=== PATIENT | female | born 1955 | race Caucasian/White ===

== ENCOUNTER 2023-05-30 14:12 | Outpatient (REF) | payer MEDICARE, OTHER, SELFPAY ==
--- NOTE | ~2023-05-30 | XR_ITS ---
EXAMINATION: XR KNEE, RIGHT CLINICAL INFORMATION: Pain in right knee COMPARISON: None available. TECHNIQUE: Four views of the right knee. FINDINGS: There are surgical changes relating to the right knee arthroplasty. Components are intact and in alignment. No fracture, periprosthetic or otherwise is seen. There is a small joint effusion. Joint spaces are maintained. No abnormal soft tissue calcification. XR/XR knee RT 3V IMPRESSION: Changes relating to a right knee arthroplasty with a small joint effusion.
== END 2023-05-30 14:13 | disposition home or self-care (01) ==
LOC: HO.HOSX 14:12
PROVIDERS: Visit Provider Orthopaedic Surgery
DX: M25.561 Pain in right knee (principal); M17.12 Unilateral primary osteoarthritis, left knee
CPT/HCPCS: 73562; 99212

== ENCOUNTER 2023-05-30 14:12 | Outpatient (AMB) | payer MEDICARE, OTHER, SELFPAY ==
--- NOTE | 2023-05-30 14:26 | MHC.OFFVIS ---
Intake Intake Visit Reasons: OV-F/U RT knee surgery Intake Note: Pt presents to the office today for an office visit F/U. Pt states she is a previous pt of Dr. Pérez from his previous office. Pt states she is doing great after her right knee surgery. Patient states she has mild intermittent discomfort her right knee. Today she is most concerned with progressively worsening left knee pain and mechanical symptoms. Patient states that she has fallen on 2 occasions because her left knee has given out. Allergies adhesive tape Allergy (Intermediate, Verified 05/30/23 14:27) Rash epinephrine Allergy (Mild, Verified 05/30/23 14:27) shaking Medication List - Last Reconciled 05/30/23 by Quintin Pérez MD ustekinumab (Stelara) 45 mg subcut Q12W PFSH Surgical History (Updated 05/30/23 @ 14:34 by Helga Abdullahi MA) History of total right knee replacement (TKR) Family History (Updated 05/30/23 @ 14:30 by Helga Abdullahi MA) Mother Lung cancer Liver cancer Sister Hypertension Sister Multiple sclerosis Social History (Updated 05/30/23 @ 14:29 by Helga Abdullahi MA) Household Members: Spouse Housing: House Alcohol intake: current Alcohol intake frequency: a few times a month Patient Tobacco Use Status: Former Tobacco user Current occupational status: employed and retired Current occupation: [employer] Physical Exam Const Other: Well-nourished well-developed very friendly female awake alert and oriented x3 in no acute distress Extrem Other: Bilateral lower extremity examination shows good capillary refill, no skin lesions noted, normal sensation light touch Right knee examination shows that the surgical incision is well healed, no erythema, full active extension and flexion to 120 degrees, her patella tracks well Left knee examination shows a mild effusion, palpable crepitus with range of motion, pain with range of motion, range of motion from -3 degrees to 115 degrees Results Reviewed Results Reviewed: X-rays of the patient's right knee show a total knee arthroplasty in good position with no signs of loosening, no acute bony abnormalities X-rays of the patient's left knee taken previously show severe joint space narrowing, subchondral sclerosis, no acute bony abnormalities Assessment & Plan Assessment & Plan (1) Right knee pain: Code(s): M25.561 - Pain in right knee Plan: Ms. [place] I spent 22 minutes in reviewing the patient's records and imaging studies, seeing the patient and documenting in the medical record. (2) Arthritis of left knee: Code(s): M17.12 - Unilateral primary osteoarthritis, left knee Plan: Ms. Prieto continues to do well after undergoing right total knee replacement surgery. She will continue with her home exercise program. She does know to take antibiotics before any dental work. The patient does have left knee pain and mechanical symptoms due to degenerative joint disease. I had a lengthy discussion with the patient regarding the treatment options. She wishes to hold off on left total knee replacement surgery for now. I did have her fitted with a Genumed knee brace to help give her support. I do feel that the knee brace is a medical necessity to help prevent further falls. She will contact me prior to her follow-up appointment in 3 months should her symptoms worsen in any way. I spent 22 minutes in reviewing the patient's records and imaging studies, seeing the patient and documenting in the medical record. Orders: Orders XR knee RT 3V Today M25.561 - Pain in right knee Coding Level of Care Code Est Pt Level 2 (83364) Diagnoses Right knee pain M25.561 Arthritis of left knee M17.12
== END 2023-05-30 14:56 | disposition home or self-care (01) ==
PROVIDERS: Visit Provider Orthopaedic Surgery
DX: M25.561 Pain in right knee (principal); M17.12 Unilateral primary osteoarthritis, left knee
CPT/HCPCS: 99212

== ENCOUNTER 2023-09-13 07:22 | Outpatient (REF) | payer MEDICARE, OTHER, SELFPAY ==
--- NOTE | ~2023-09-13 | XR_ITS ---
EXAMINATION: XR KNEE, LEFT CLINICAL INFORMATION: Primary osteoarthritis. COMPARISON: None available. TECHNIQUE: AP, lateral and sunrise views of the left knee are submitted. FINDINGS: Bony alignment and mineralization are normal. No fracture or dislocation is seen. There is a large joint effusion. There is moderately severe asymmetric narrowing of the medial joint space compartment. The lateral joint space compartment is well-maintained. There is moderately severe narrowing of the patellofemoral compartment, most pronounced laterally. There is tricompartment peripheral osteophyte formation. There is chondrocalcinosis. No foreign body is seen. There are atherosclerotic calcifications. XR/XR knee LT 3V IMPRESSION: 1. There is tricompartment osteoarthritic changes of the left knee, most pronounced of the medial and patellofemoral compartments, where degenerative changes are moderately severe. 2. There is a large joint effusion. 3 there is chondrocalcinosis, which can be associated with CPPD.
== END 2023-09-13 07:23 | disposition home or self-care (01) ==
LOC: HO.HOSX 07:22
PROVIDERS: Visit Provider Orthopaedic Surgery
DX: M17.12 Unilateral primary osteoarthritis, left knee (principal)
CPT/HCPCS: 73562; 99212

== ENCOUNTER 2023-09-13 11:14 | Outpatient (AMB) | payer MEDICARE, OTHER, SELFPAY ==
--- NOTE | 2023-09-13 11:24 | MHC.OFFVIS ---
Intake Intake Visit Reasons: New Prob- Lt Knee pain Intake Note: Pratibha is a 67 year old female who presents today for a new problem visit with complaints of left knee pain. Patient did undergo right total knee replacement surgery in the past. She denies any pain in her right knee. She describes her left knee pain as sharp and severe in nature. She did undergo left knee arthroscopic surgery in the past which gave her only temporary relief. She has tried Tylenol and anti-inflammatory medicines which gave her minimal relief. The patient states that her left knee will give out several times per day. She has been wearing a knee brace which gives only mild relief. The patient has had injections in the past. The most recent injection gave her no relief. The patient has difficulty walking even short distances because of her pain. At this point her left knee pain is interfering with her activities of daily living and her ability to sleep well through the night. Allergies adhesive tape Allergy (Intermediate, Verified 05/30/23 14:27) Rash epinephrine Allergy (Mild, Verified 05/30/23 14:27) shaking Medication List - Last Reconciled 09/13/23 by Phylicia Santos RN celecoxib 200 mg PO DAILY omeprazole 40 mg PO BID ustekinumab (Stelara) 45 mg subcut Q12W PFSH Surgical History History of total right knee replacement (TKR) Family History Mother Lung cancer Liver cancer Sister Hypertension Sister Multiple sclerosis Social History Household Members: Spouse Housing: House Alcohol intake: current Alcohol intake frequency: a few times a month Patient Tobacco Use Status: Former Tobacco user Current occupational status: employed and retired Current occupation: [employer] Physical Exam Const Other: Well-nourished well-developed very friendly female awake alert and oriented x3 in no acute distress Extrem Other: Bilateral lower extremity examination shows good capillary refill, no skin lesions noted, normal sensation light touch Left knee examination shows a minimal effusion, palpable crepitus with range of motion, pain with range of motion, range of motion from -3 degrees to 115 degrees, no instability Results Reviewed Results Reviewed: X-rays of the patient's left knee show end-stage degenerative joint disease with grade 4 [id number] arthritis in the medial compartment, subchondral sclerosis, osteophyte formation, no acute bony abnormality Assessment & Plan Assessment & Plan (1) Arthritis of left knee: Code(s): M17.12 - Unilateral primary osteoarthritis, left knee Plan Ms. Prieto presents with progressively worsening left knee pain due to end-stage degenerative joint disease. I had a lengthy discussion with the patient regarding the treatment options. At this point she has failed continued non operative treatments. The risks and benefits of left total knee replacement surgery were discussed at length with the patient. The patient wishes to proceed with surgery. Patient will be scheduled for next available date. I will see her back 1 week prior to her surgery to answer any final questions that she might have. Feel free to call me at any time should questions regarding her orthopedic management arise. I spent 22 minutes in reviewing the patient's records and imaging studies, seeing the patient and documenting in the medical record. Orders: Orders XR knee LT 3V Today M17.12 - Unilateral primary osteoarthritis, left knee Coding Level of Care Code Est Pt Level 2 (77388) Diagnoses Arthritis of left knee M17.12
== END 2023-09-13 12:18 | disposition home or self-care (01) ==
PROVIDERS: Visit Provider Orthopaedic Surgery
DX: M17.12 Unilateral primary osteoarthritis, left knee (principal); Z96.651 Presence of right artificial knee joint
CPT/HCPCS: 99213

== ENCOUNTER → 2023-12-19 12:02 | Outpatient (BNVA) | payer MEDICARE, OTHER, SELFPAY | PROVIDERS: PCP Family Medicine; Visit Provider Orthopaedic Surgery ==

== ENCOUNTER → 2023-12-19 12:02 | Outpatient (BNVA) | payer MEDICARE, OTHER, SELFPAY | PROVIDERS: PCP Family Medicine; Visit Provider Orthopaedic Surgery ==

== ENCOUNTER 2024-02-06 10:11 | Outpatient (REF) | payer MEDICARE, OTHER, SELFPAY | END 2024-02-06 10:12 | disposition home or self-care (01) | LOC: HO.HOSX 10:11 | PROVIDERS: Visit Provider Orthopaedic Surgery | DX: M17.12 Unilateral primary osteoarthritis, left knee (principal) | CPT/HCPCS: 99212 ==

== ENCOUNTER 2024-02-06 10:31 | Outpatient (AMB) | payer MEDICARE, OTHER, SELFPAY ==
--- NOTE | 2024-02-06 10:37 | MHC.OFFVIS ---
Intake Visit Reasons: B/L hip pain Intake Note: Pratibha is a 68-year-old female who presents with complaints of progressively worsening left knee pain. She did undergo right total knee replacement surgery several years ago. She denies any pain in her right knee. She has had injections in the past which gave her minimal relief. She has also done physical therapy exercises which aggravated her pain. She is tentatively scheduled to undergo left total knee replacement surgery next month. She is concerned about possible Lyme disease after a recent tick bite and possible need for steroids due to psoriasis flare up. Allergies adhesive tape Allergy (Intermediate, Verified 05/30/23 14:27) Rash Sulfa (Sulfonamide Antibiotics) Allergy (Intermediate, Verified 01/11/24 10:49) Vomiting epinephrine Allergy (Mild, Verified 05/30/23 14:27) shaking varenicline [From Chantix] Adverse Reaction (Intermediate, Verified 01/11/24 10:49) emotional discord Medication List - Last Reconciled 02/06/24 by Quintin Pérez MD amoxicillin 2,000 mg (4 x 500 mg) PO ONCE celecoxib 200 mg PO DAILY lactobacillus comb no.10 (Probiotic) 20,000 mmu cells PO DAILY omeprazole 40 mg PO BID ustekinumab (Stelara) 45 mg subcut Q12W walker Folding front wheeled walker [facility] Medical History (Updated 02/05/24 @ 15:14 by Quintin Pérez MD) Psoriasis Osteoarthritis Ocular migraine Hypertriglyceridemia Hypothyroid HTN (hypertension) Dysphagia GERD (gastroesophageal reflux disease) Surgical History (Updated 01/11/24 @ 10:49 by Frances Angel RN) History of tonsillectomy and adenoidectomy History of History of total right knee replacement (TKR) Family History Mother Lung cancer Liver cancer Sister Hypertension Sister Multiple sclerosis Social History Household Members: Spouse Housing: House Alcohol intake: current Alcohol intake frequency: a few times a month Patient Tobacco Use Status: Former Tobacco user Current occupational status: employed and retired Current occupation: [employer] Physical Exam Const Other: Well-nourished well-developed very friendly female awake alert and oriented x3 in no acute distress Extrem Other: Left knee examination shows a minimal effusion, palpable crepitus with range of motion, pain with range of motion, multiple psoriatic skin lesions on her lower extremity Results Reviewed Results Reviewed: X-rays of the patient's left knee show joint space narrowing, subchondral sclerosis, osteophyte formation, no acute bony abnormalities Assessment & Plan Assessment & Plan (1) Arthritis of left knee: Code(s): M17.12 - Unilateral primary osteoarthritis, left knee Category: Medical Plan Ms. Prieto presents with left knee pain due to degenerative joint disease. I had a lengthy discussion with the patient regarding her treatment options. Due to her recent tick bite and psoriasis flare up we will hold off on left total knee replacement surgery for now. I will see her back in 2-3 months time for repeat clinical examination. She is considering undergoing left total knee replacement surgery later this year or early next year. Feel free to call me at any time should questions regarding her orthopedic management arise. I spent 19 minutes in reviewing the patient's records and imaging studies, seeing the patient and documenting in the medical record. Orders: Orders XR hip LT min 2V Today M16.12 - Unilateral primary osteoarthritis, left hip XR hip RT 1V Today M16.11 - Unilateral primary osteoarthritis, right hip Coding Level of Care Code Est Pt Level 2 (31570) Diagnoses Arthritis of left knee M17.12
== END 2024-02-06 10:57 | disposition home or self-care (01) ==
PROVIDERS: PCP Family Medicine; Visit Provider Orthopaedic Surgery
DX: M17.12 Unilateral primary osteoarthritis, left knee (principal)
CPT/HCPCS: 99213

== ENCOUNTER 2024-05-08 11:19 | Outpatient (AMB) | payer MEDICARE, OTHER, SELFPAY ==
--- NOTE | 2024-05-08 11:27 | A.OFFVIS_ITS ---
Intake Visit Reasons: OV-Left knee follow up Intake Note: Pratibha is a 68 year old female who presents to the office today for a 3 month Left knee follow up. Pt states she is working on her exercises and states her previous cortisone injection was helpful. Pt states she does have a follow up with her arthritis doctor to get another injection in May. If she does not get lasting relief from the injection she is considering undergoing left total knee replacement surgery early next year. She has done physical therapy exercises which aggravated her pain. She has also tried Tylenol and Celebrex which gave her minimal relief. The patient has difficulty walking even short distances because of her pain. At this point her left knee pain is interfering with her activities of daily living and her ability to sleep well through the night. Allergies adhesive tape Allergy (Intermediate, Verified 05/08/24 11:27) Rash Sulfa (Sulfonamide Antibiotics) Allergy (Intermediate, Verified 05/08/24 11:27) Vomiting epinephrine Allergy (Mild, Verified 05/08/24 11:27) shaking varenicline [From Chantix] Adverse Reaction (Intermediate, Verified 05/08/24 11:27) emotional discord Medication List - Last Reconciled 05/08/24 by Quintin Pérez MD amoxicillin 2,000 mg (4 x 500 mg) PO ONCE celecoxib 200 mg PO DAILY lactobacillus comb no.10 (Probiotic) 20,000 mmu cells PO DAILY omeprazole 40 mg PO BID ustekinumab (Stelara) 45 mg subcut Q12W walker Folding front wheeled walker [facility] Medical History (Updated 02/05/24 @ 15:14 by Quintin Pérez MD) Psoriasis Osteoarthritis Ocular migraine Hypertriglyceridemia Hypothyroid HTN (hypertension) Dysphagia GERD (gastroesophageal reflux disease) Surgical History (Updated 01/11/24 @ 10:49 by Frances Angel RN) History of tonsillectomy and adenoidectomy History of History of total right knee replacement (TKR) Family History Mother Lung cancer Liver cancer Sister Hypertension Sister Multiple sclerosis Social History Household Members: Spouse Housing: House Alcohol intake: current Alcohol intake frequency: a few times a month Patient Tobacco Use Status: Former Tobacco user Current occupational status: employed and retired Current occupation: [employer] Physical Exam Const Other: Well-nourished well-developed very friendly female awake alert and oriented x3 in no acute distress Extrem Other: Bilateral lower extremity examination shows good capillary refill, no skin lesions noted, normal sensation light touch Left knee examination shows a minimal effusion, palpable crepitus with range of motion, pain with range of motion, range of motion from -3 degrees to 115 degrees, no instability Results Reviewed Results Reviewed: X-rays of the patient's left knee show end-stage degenerative joint disease with grade 4 [id number] arthritis, subchondral sclerosis, osteophyte formation, no acute bony abnormalities Assessment & Plan Assessment & Plan (1) Arthritis of left knee: Code(s): M17.12 - Unilateral primary osteoarthritis, left knee Category: Medical Plan Ms. Prieto presents with progressively worsening left knee pain due to end-stage degenerative joint disease. She will follow up next week with her arthritis doctor for a another injection. If she does not get lasting relief from the injection she is considering undergoing left total knee replacement surgery early next year. She will contact my office to pick a surgery date if she chooses to do so. Otherwise she will follow up with me on an as-needed basis. Feel free to call me at any time should questions regarding her orthopedic management arise. I spent 20 minutes in reviewing the patient's records and imaging studies, seeing the patient and documenting in the medical record. Coding Level of Care Code Est Pt Level 3 (77262) Diagnoses Arthritis of left knee M17.12
== END 2024-05-08 11:49 | disposition home or self-care (01) ==
PROVIDERS: PCP Family Medicine; Visit Provider Orthopaedic Surgery
DX: M17.12 Unilateral primary osteoarthritis, left knee (principal)
CPT/HCPCS: 99213

== ENCOUNTER → 2024-05-08 11:19 | Outpatient (BNVA) | payer MEDICARE, OTHER, SELFPAY | PROVIDERS: PCP Family Medicine; Visit Provider Orthopaedic Surgery | DX: M17.12 Unilateral primary osteoarthritis, left knee (principal) | CPT/HCPCS: 99212 ==

== ENCOUNTER → 2024-09-03 08:53 | Outpatient (BNVA) | payer MEDICARE, OTHER, SELFPAY | PROVIDERS: PCP Family Medicine | DX: Z01.818 Encounter for other preprocedural examination (principal) ==

== ENCOUNTER 2024-10-03 07:59 | Outpatient (AMB) | payer MEDICARE, SELFPAY ==
[2024-10-03 08:01] VITALS: BMI 27.0
--- NOTE | 2024-10-03 08:01 | A.OFFVIS_ITS ---
Vital Signs 10/03/24 08:01 Height 5 ft 4.17 in Weight 158 lb BMI 27.0 Intake Visit Reasons: Left knee pain Intake Note: Pratibha is a 67 year old female who presents with complaints of progressively worsening left knee pain. The patient describes her pain as sharp and severe in nature, 10/10. Her pain has gotten worse over the last few years in spite of continued non operative treatments. The patient did undergo right total knee replacement surgery in the past. She denies any pain in her right knee. She did undergo left knee arthroscopic surgery in the past which gave her only temporary relief. She has tried Tylenol and anti-inflammatory medicines which gave her minimal relief. The patient states that her left knee will give out several times per day. She has been wearing a knee brace which gives only mild relief. The patient has had injections in the past. The most recent injection gave her no relief. The patient has difficulty walking even short distances because of her pain. At this point her left knee pain is interfering with her activities of daily living and her ability to sleep well through the night. Allergies adhesive tape Allergy (Intermediate, Verified 10/03/24 08:03) Rash (from band aids/medicine patches) Sulfa (Sulfonamide Antibiotics) Allergy (Intermediate, Verified 10/03/24 08:03) Vomiting epinephrine Allergy (Mild, Verified 10/03/24 08:03) Shakiness varenicline [From Chantix] Adverse Reaction (Intermediate, Verified 10/03/24 08:03) emotional discord Medication List - Last Reviewed 10/03/24 by FERNANDO Arguelles acidophilus-pectin, citrus 100 million cell-10 mg 1 cap PO QAM celecoxib 200 mg PO BEDTIME PRN multivitamin 1 tab PO QAM omeprazole 40 mg PO BID ustekinumab (Stelara) 45 mg subcut Q12W walker Folding front wheeled walker zoledronic utgs-rhsmvuyi-heqww 5 mg/100 mL (Reclast) 1 ea IV [id number] PFSH Medical History Anxiety Pneumonia Fracture, ribs White coat syndrome without diagnosis of hypertension Vertebral compression fracture Osteoporosis Psoriasis Osteoarthritis Ocular migraine Hypertriglyceridemia Hypothyroid Dysphagia GERD (gastroesophageal reflux disease) Surgical History Hx of bilateral cataract extraction H/O colonoscopy Hx of arthroscopy of left knee History of esophagogastroduodenoscopy (EGD) History of tonsillectomy and adenoidectomy History of History of total right knee replacement (TKR) Family History Mother Lung cancer Liver cancer Sister Hypertension Sister Multiple sclerosis Social History Household Members: Spouse Housing: House Are you a primary family day care provider to a significant other at home: No Do you presently have visiting nurse or other home services: No Alcohol intake: current Alcohol intake frequency: holidays/special occasions only Patient Tobacco Use Status: Former Tobacco user Tobacco use type: Cigarette Years Smoked: 30 Current occupational status: employed and retired Current occupation: [employer] Physical Exam Vital Signs: BMI result Body Mass Index 27.0 Const Other: Well-nourished well-developed very friendly female awake alert and oriented x3 in no acute distress Extrem Other: Bilateral lower extremity examination shows good capillary refill, no skin lesions noted, normal sensation light touch Left knee examination shows a minimal effusion, palpable crepitus with range of motion, pain with range of motion, range of motion from -3 degrees to 120 degrees, no instability Results Reviewed Results Reviewed: X-rays of the patient's left knee show end-stage degenerative joint disease with grade 4 udhi-lf-ijdr arthritis in the medial compartment, subchondral sclerosis, no acute bony abnormalities Assessment & Plan Assessment & Plan (1) Left knee pain: Code(s): M25.562 - Pain in left knee (2) Arthritis of left knee: Code(s): M17.12 - Unilateral primary osteoarthritis, left knee Category: Medical Plan Ms. Prieto presents with progressively worsening left knee pain due to end-stage degenerative joint disease. I had a lengthy discussion with the patient re garding the treatment options. At this point she has failed continued non operative treatments. The risks and benefits of left total knee replacement surgery were discussed at length with the patient. The patient wishes to proceed with surgery. technical services assistant will be consulted following her surgery for home physical therapy and nursing. The patient will follow-up as instructed. Feel free to call me at any time should questions regarding her orthopedic management arise. I spent 22 minutes in reviewing the patient's records and imaging studies, seeing the patient and documenting in the medical record. Orders: Orders XR knee LT 3V Today M17.12 - Unilateral primary osteoarthritis, left knee Type and Screen Today M17.12 - Unilateral primary osteoarthritis, left knee, Z01.818 - Encounter for other preprocedural examination Coding Level of Care Code Est Pt Level 3 (82788) Complex EM visit Add On G2211 Diagnoses Left knee pain M25.562 Arthritis of left knee M17.12
--- OUTSIDE RECORDS SUMMARY | 2024-10-03 08:01 | XMS_ITS | Continuity of Care Document ---
Author Organization [facility] Address [address] [place] [address]- Care Team Providers Care Leasing Representative Name Role Phone Jose Carlos MAYES, Meredith Lindsey Primary Care Physic dariusz [place] [facility] [place] 09/11/24 [facility] [address] [place] [address]- Encounter Diagnosis Osteoarthritis of left knee(Discharge Diagnosis) - 09/04/24 Attending Physician: Jose Carlos MAYES, Meredith Lindsey Encounter Type: Office Visit Allergies, Adverse Reactions, [...] vaccine, inactivated 1 06/13/11 Gi dede SARS-CoV-2(COVID-19)mRNA-LNP vac([id number]) 07/09/23 Recorded [id number] 12y+ bivalent booster vax 06/17/22 Recorded SARS-CoV-2 mRNA (ztzxvuj-zoaw-jkevu) vax 12/31/21 Recorded SARS-CoV-2 (COVID-19) mRNA BNT-162b2 [...] 05/13/24 9:05:00 AM EDT, EC Capsule, [id number], Partial fill upon patient request if the [...] right knee Confirmed Active Osteoporosis Confirmed Active Psoriasis Confirmed Active Multiple falls Confirmed Active Sore throat Confirmed Active History of tobacco abuse Confirmed Active Urolithiasis Confirmed Active Vitamin D deficiency Confirmed Active Diagnosis Diagnosis Type Effective Dates Health Status Clinical Service Informant Osteoarthritis of left knee Discharge Diagnosis 09/04/24 Vital Signs Most recent to oldest [Reference Range]: 1 Height 163 cm (09/04/24 12:47 PM) Oxygen Saturation [94-100 %] 99 % (09/04/24 12:47 PM) Pulse Rate [55-90 bpm] 74 bpm (09/04/24 12:47 PM) Blood Pressure [90-138/55-84 mm Hg] 104/ 71mm Hg (09/04/24 12:47 PM) Mode of Delivery (Oxygen) Room air (09/04/24 12:47 PM) Blood pressure sites Arm, right (09/04/24 12:47 PM) Weight Obtained Via Standing scale (09/04/24 12:47 PM) Social History Social History Type Response Tobacco Other: 1.5-2 ppd for 33 yrs. Sex Sex Representation Female (finding) Note * Linda Faye: PERFORM Event Display: Patient Education/Instruction Authored Date: Ambulatory Adult Visit Summary [address] [address] Name: ALEE VIDALES : 1955?? Visit: 09/04/2024 12:40?? Ambulatory Visit Instructions ?? Your Care Team Primary Care Provider Meredith Branch MD? This Visit Provider Meredith Hager MD Your Diagnosis Osteoarthritis of left knee Vitals Signs Pulse Rate: 74 bpm Height: 163 cm Systolic Blood Pressure: 104 mm Hg ?? Diastolic Blood Pressure: 71 mm Hg ?? Oxygen Saturation: 99 % ?? What to do next Scheduled Follow-Up Appointments Monday 8:45 AM EST ?? With: Yesica MAYES, Alisson Where: [facility] [address] [place] [address]- Status: Pending Future Orders CBC w/ Differential - Routine, Once, 11/03/24 13:06:00 EST, Future Order, [facility], Blood?? Comprehensive Metabolic Panel - Routine, Once, 11/03/24 13:06:00 EST, Future Order, [facility], Blood?? Medications The list below reflects the information in our records and provided by you today along with any changes made during this visit. Please continue your medications until treatment is completed or stopped by your provider. If this is different from the information you have or there are other questions,please contact the prescribing provider. What How Much When Instructions Unchanged Betamethasone-Clotrimazole Topical (betamethasone-clotrimazole 0.05%-1% topical cream) 1 nicky Topically Twice a day Unchanged bifidobacterium-lactobacillus (Probiotic Formula) Oral Daily Unchanged Celecoxib (celecoxib 200 mg oral capsule) 1 capsule Oral Daily Unchanged Cholecalciferol (Vitamin D3) Oral Daily Unchanged Clobetasol Topical (clobetasol 0.05% topical solution) APPLY 2X DAILY TO SCALP FOR 2 WEEKS THEN STOP FOR 2 WEEKS ??REPEAT CYCLE NEEDED. ?? Unchanged Omeprazole (omeprazole 40 mg oral enteric coated capsule) 1 capsule Oral Twice a day Unchanged Ustekinumab (Stelara PFS 45 mg/ 0.5 mL subcutaneous solution) INJECT 1 SYRINGE UNDER THE SKIN EVERY 12 WEEKS ?? Unchanged Zoledronic Acid (Reclast 5 mg/ 100 mL intravenous solution) 5 Milligram Intravenous Infusion Once Test Performed Below is a partial list of the tests performed during your Visit. You may have had other tests and procedures not included in this list. Please discuss all test results with your provider. CBC w/ Differential?-- Results Pending -- Comprehensive Metabolic Panel?-- Results Pending -- Medications and Immunizations Administered Medications Given During Visit No medications given during this visit.?? Allergies (NKA means No Known Allergies) Chantix??(EMOTIONAL DISCORD) Adhesive Bandage epinephrine sulfamethoxazole??(Vomiting) Common Emergency Awareness Tips IS IT A STROKE? Act FAST and Check for these signs: FACE Does the face look uneven? ARM Does one arm drift down? SPEECH Does their speech sound strange? TIME Call at any sign of stroke ?? Heart Attack Signs Chest discomfort: Most heart attacks involve discomfort in the center of the chest and lasts more than a few minutes, or goes away and comes back. It can feel like uncomfortable pressure, squeezing, fullness or pain. Discomfort in upper body: Symptoms can include pain or discomfort in one or both arms, back, neck, jaw or stomach. Shortness of breath: With or without discomfort. Other signs: Breaking out in a cold sweat, nausea, or lightheaded. Remember, MINUTES DO MATTER. If you experience any of these heart attack warning signs, call to get immediate medical attention! ?? Smoking can increase your chances of developing chronic health problems and can cause harmful effects to other family members in your house. If you smoke, you are strongly encouraged to quit. Please call [facility] at [phone] or [phone] ([phone]) or log in to [email or web address] for referrals to smoking cessation programs. ?? The National Suicide Prevention Hotline is available 24/7 if you or someone you know needs to find a reason to keep living. By calling 6-594-214-bwii (5244) you'll be connected to a skilled, trained counselor at a crisis center in your area. [facility] Portal You can view and manage your care through the patient portal or by using a health care nicky of your choosing. [facility] [employer] is a website that allows you to securely view your medical information including your hospital discharge summary, office visit summaries, medications and follow-up visits. You can also request appointments, renew medications, and request access to your medical information using a health care nicky of your choosing, or just ask a question. You can enroll at [email or web address] or register during your next office visit. [facility], in keeping with [facility] guidance, no longer requires face masks for staff, patientsor visitors in most situations. Similiar to time spent indoors at other locations, there is the chance that you were exposed to repiratory viruses during your time with us (such as flu or COVID-19). If you develop symptoms concerning for a viral respiratory infection, please seek testing (and treatment if indicated) from your medical provider or home test kit. ?? Disclaimer: The information provided is of a general nature and is intended to be used in conjunction with the recommendations and advice of your health care practitioner. Every effort has been made to ensure that the information provided is accurate and complete at the time it is provided to you however, as your needs change, or, as new information becomes available, different or additional instructions may be required. ?? If you have questions, please consult with your primary care provider or pharmacist, as appropriate. This information is not intended to serve as substitution for assessment and evaluation by a qualified health care provider. If you do not have a primary care provider, you may find a [facility] provider by calling [facility] at [phone]. Patient Care team information Care Team Personnel Name: Jose Carlos MAYES, Meredith Lindsey Position: S Physician - Primary Care Member Role: PCP Address: [address] [place] [address] Telecom: Care Team Related Persons Name: PAUL VIDALES Name: EZIO VIDALES Insurance Providers Guarantor name: ALEE VIDALES [facility] [employer] Plan Information #: 1 Payer: MEDICARE PART B OUTPT Member Number: [id number] Policy Number: NA Group Number: NA Health Plan Information #: 2 Payer: [facility] Member Number: [id number] Policy Number: NA Group Number: [id number]
--- OUTSIDE RECORDS SUMMARY | 2024-10-03 08:01 | XMS_ITS | Continuity of Care Document ---
Author Organization [facility] Address [address] [place] [address]- Care Team Providers Care Can Crimper Name Role Phone Jose Carlos MAYES, Meredith Lindsey Primary Care Physic dariusz Encounter [facility] [place] Date(s): 08/14/24 - 09/13/24 [facility] [address] [place] [address]- Encounter Type: Triage Allergies, Adverse Reactions, Alerts [...] vaccine, inactivated 1 06/13/11 Gi dede SARS-CoV-2(COVID-19)mRNA-LNP vac([id number]) 07/09/23 Recorded [id number] 12y+ bivalent booster vax 06/17/22 Recorded SARS-CoV-2 mRNA (figsflh-kqxj-cqems) vax 12/31/21 Recorded SARS-CoV-2 (COVID-19) mRNA BNT-162b2 [...] 05/13/24 9:05:00 AM EDT, EC Capsule, [id number], Partial fill upon patient request if the [...] Name: Jose Carlos MAYES, Meredith Lindsey Position: [facility] Physician - Primary Care Member Role: PCP Address: [address] [place] [address] Telecom: Care Team Related Persons Name: PAUL VIDALES Name: EZIO VIDALES Insurance Providers Guarantor name: ALEE VIDALES Health Plan Information #: 1 Payer: MEDICARE PART B OUTPT Member Number: NA Policy Number: NA Group Number: NA Health Plan Information #: 2 Payer: [facility] Member Number: NA Policy Number: NA Group Number: NA
--- OUTSIDE RECORDS SUMMARY | 2024-10-03 08:01 | XMS_ITS | Continuity of Care Document ---
Author Organization [facility] Address [address] [place] [address]- Care Team Providers Care Customer Account Technician Name Role Phone Jose Carlos MAYES, Meredith Lindsey Primary Care Physic dariusz Encounter [facility] [place] Date(s): 08/12/24 - 09/11/24 [facility] [address] [place], [place] [address] Attending Physician: Alonso Melton Admitting Physician: Alonso Melton Referring Physician: Alonso Melton Referring Physician: Socorro Bailon Encounter Type: Triage Allergies, Adverse Reactions, Alerts [...] vaccine, inactivated 1 06/13/11 Gi dede SARS-CoV-2(COVID-19)mRNA-LNP vac([id number]) 07/09/23 Recorded [id number] 12y+ bivalent booster vax 06/17/22 Recorded SARS-CoV-2 mRNA (rzxbyds-ikhp-ygjuf) vax 12/31/21 Recorded SARS-CoV-2 (COVID-19) mRNA BNT-162b2 [...] 05/13/24 9:05:00 AM EDT, EC Capsule, [id number], Partial fill upon patient request if the [...] Name: Jose Carlos MAYES, Meredith Lindsey Position: [facility] Physician - Primary Care Member Role: PCP Address: [address] [place] [address] Telecom: Care Team Related Persons Name: PAUL VIDALES Name: EZIO VIDALES Insurance Providers Guarantor name: [facility] Information #: 1 Payer: MEDICARE PART B OUTPT Member Number: NA Policy Number: NA Group Number: NA Health Plan Information #: 2 Payer: [facility] Member Number: NA Policy Number: NA Group Number: NA
--- OUTSIDE RECORDS SUMMARY | 2024-10-03 08:01 | XMS_ITS | Data Portability ---
Author Organization [facility], [facility] Address [address] [place] [address] Care Team Providers [employer] Platform Supervisor Name Role Phone DARLING ROCHA Primary Care Provider [phone] EZIO LONDON Child Day Care Teacher [phone] CHIRAG REECE [employer] Supervisor MARCIO LOZADA Legal Specialist Assessment Encounter Date Assessment Date Assessment LastModified by Organization Details LastModified Time 05/04/2020 05/04/2020 Patient agreed t o this visit via phone or secure telehealth platform due to the COVID -19 pandemic. Patient understands this is a scheduled visit and the usual procedures with regard to billing and confidentiality apply. Patient was notified that the provider location is home Patient location: home During the visit the patient? s medical history and medical record were reviewed. The patient was notified to call our office for worsening or urgent symptoms. [email or web address] Not available 05/04/2020 14:49:40 Plan of Treatment Reminders Order Date Submit Date Provider Last Modified By Organization Details Last Modified Time Details Appointments None recorded. Lab CBC 2019 020 [facility], [address] [place] [address], [address], 0 14:53:37 BMP, serum or plasma 2019 020 [facility], [address] [place] [address], [address], 0 12:02:28 vitamin D, 25-hydrox y, total, serum 2019 020 [facility], [address] [place] [address], [address], 0 12:20:02 MAURICIO (antinucl ear antibodie s) screen, ifa, serum 2019 020 [facility], [address] [place], [address], 0 15:32:59 Referral None recorded. Procedures None recorded. Surgeries None recorded. Imaging None recorded. Medication Orders clotrimaz ole-betam ethasone 1 %-0.05 % topical cream 2019 020 INTERFACE [id number], [address] [place], [address], 0 14:22:06 Patient TargetsNo targets recorded. Patient Instructions Encounter Date Encounter Id Patient Instructions Last Modified By Organization Details Last Modified Time 02/18/2020 [id number] After a discussi on of treatment options, which included consideration of best practices and patient preferences, the following treatment plan and objectives were adopted: as above. [email or web address] Not available 02/18/2020 14:08:12 05/04/2020 [id number] After a discussi on of treatment and medication options, which included consideration of the best practices in medicine, a medical plan was provided. The patient's opinions and concerns were included in this treatment plan and goal. Things you can do to lower your risk of Covid 19 and help slow the spread of the virus -Get plenty of rest -Eat a healthy diet, with lots of fruits and vegetables -Get 7-8 hours of sleep per night -Make sure you are doing some type of exercise inside your house or outside (not in groups) -Maintain 6 feet distance from friends / family -Wash your hands frequently for 20 seconds and / or use Purell or other hand director data management -Do not touch your face, eyes, nose, mouth -Cover your mouth and nose with a tissue when sneezing and coughing or sneeze and cough into your sleeve. Throw the tissue in the trash. Wash your hands afterward. Never cough or sneeze into your hands. -Clean frequently used surfaces (such as doorknobs and counter tops) with a virus-killing disinfectant. -Call with any concerns. [email or web address] Not available 05/04/2020 14:54:46 05/08/2020 [id number] Enc continue social distancing, frequent handwashing, cover face with mask when in crowded areas (ie. supermarket). F/u if any s/s of Covid-19 including fever, cough, SOB. [email or web address] Not available 05/08/2020 13:34:28 Reason for Referral None Reported. Results Created Date Observation Date Name Description Value Unit Range Abnormal Flag Note LastModifiedBy Organization Detail LastModifiedTime 03/24/20 20 03/24/2020 CBC WBC 9.47 K/??L 3.98-1 0.04 Not Available [address], [address], 03/24/2020 14:53:37 03/24/2003/24/2020 CBC RBC 4.62 M/??L 3.93-5 .22 Not Available [address], [address], 03/24/2020 14:53:37 03/24/2003/24/2020 CBC HGB 13.9 g/dL 11.2-1 5.7 Not Available [address], [address], 03/24/2020 14:53:37 03/24/20 20 03/24/2020 CBC HCT 42.8 % 34.1-4 4.9 Not Available [address], [address], 03/24/2020 14:53:37 03/24/2003/24/2020 CBC MCV 92.6 fL 79.4-9 4.8 Not Available [address], [address], 03/24/2020 14:53:37 03/24/2003/24/2020 CBC MCH 30.1 pg 25.6-3 2.2 Not Available [address], [address], 03/24/2020 14:53:37 03/24/20 20 03/24/2020 CBC MCHC 32.5 g/dL 32.2-3 5.5 Not Available [address], [address], 03/24/2020 14:53:37 03/24/20 20 03/24/2020 CBC plt 331 K/??L 182-36 9 Not Available [address], [address], 03/24/2020 14:53:37 03/24/20 20 03/24/2020 CBC MPV 10.4 fL 9.4-12 .3 Not Available [address], [address], 03/24/2020 14:53:37 03/24/20 20 03/24/2020 CBC neut% 61.9 % 34.0-7 1.1 Not Available [address], [address], 03/24/2020 14:53:37 03/24/20 20 03/24/2020 CBC neut# 5.86 1.56-6 .13 Not Available [address], [address], 03/24/2020 14:53:37 03/24/20 20 03/24/2020 CBC lymph % 25.2 % 19.3-5 1.7 Not Available [address], [address], 03/24/2020 14:53:37 03/24/20 20 03/24/2020 CBC lymph # 2.39 K/??L 1.18-3 .74 Not Available [address], [address], 03/24/2020 14:53:37 03/24/20 20 03/24/2020 CBC mono% 7.6 % 4.7-12 .5 Not Available [address], [address], 03/24/2020 14:53:37 03/24/20 20 03/24/2020 CBC mono# 0.72 0.24-0 .56 high Not Available [address], [address], 03/24/2020 14:53:37 03/24/20 20 03/24/2020 CBC eo% 3.7 % 0.7-5. 8 Not Available [address], [address], 03/24/2020 14:53:37 03/24/20 20 03/24/2020 CBC eo# 0.35 0.04-0 .36 Not Available [address], [address], 03/24/2020 14:53:37 03/24/20 20 03/24/2020 CBC baso% 1.0 % 0.1-1. 2 Not Available [address], [address], 03/24/2020 14:53:37 03/24/20 20 03/24/2020 CBC baso# 0.09 0.00-0 .08 high Not Available [address], [address], 03/24/2020 14:53:37 03/24/20 20 03/24/2020 CBC RDW-CV 13.2 % 11.7-1 4.4 Not Available [address], [address], 03/24/2020 14:53:37 03/24/20 20 03/24/2020 CBC Ig% 0.600 % 0.000- 1.500 Ig % >0.5 Indic ates possi ble Left Shift Not Available [address], [address], 03/24/2020 14:53:37 03/24/20 20 03/24/2020 CBC Ig# 0.060 0.000- 0.093 Not Available [address], [address], 03/24/2020 14:53:37 03/24/20 20 03/24/2020 CBC NRBC% 0.0 % 0.0-0. 2 Not Available [address], [address], 03/24/2020 14:53:37 03/24/20 20 03/24/2020 CBC NRBC# 0.000 0.000- 0.012 Not Available [address], [address], 03/24/2020 14:53:37 03/24/20 20 03/25/2020 BMP, serum or plasm a glucose 145 mg/dL 70-100 high LIPG= Speci men Marke dly Lipem ic. Chem Resul ts may be effec deanna. Not Available [address], [address], 03/25/2020 12:02:28 03/24/20 20 03/25/2020 BMP, serum or plasm a BUN 10 mg/dL 7-18 Not Available [address], [address], 03/25/2020 12:02:28 03/24/2003/25/2020 BMP, serum or plasm a creatinine 0.8 mg/dL 0.8-1. 3 Not Available [address], [address], 03/25/2020 12:02:28 03/24/20 20 03/25/2020 BMP, serum or plasm a B/C 12.5 ratio Not Available [address], [address], 03/25/2020 12:02:28 03/24/20 20 03/25/2020 BMP, serum or plasm a GFR -non 80.6 mL/mi n Recom tanja d GFR by the Natio nal Kidne y Found ation >60 mL/mi n/1.7 3m2 - Na l <60 mL/mi n/1.7 3m2 - Chron ic Kidne y Disea se <15 mL/mi n/1.7 3m2 - Kidne y Failu re Not Available [address], [address], 03/25/2020 12:02:28 03/24/20 20 03/25/2020 BMP, serum or plasm a GFR - if 92.7 mL/mi n For Afric an Ameri can patie nts: Resul ts Multi plied by 1.21 Not Available [address], [address], 03/25/2020 12:02:28 03/24/20 20 03/25/2020 BMP, serum or plasm a sodium 144 mmol/ L 136-14 5 Not Available [address], [address], 03/25/2020 12:02:28 03/24/2003/25/2020 BMP, serum or plasm a potassium 3.7 mmol/ L 3.5-5. 1 Not Available [address], [address], 03/25/2020 12:02:28 03/24/2003/25/2020 BMP, serum or plasm a chloride 107 mmol/ L 96-107 Not Available [address], [address], 03/25/2020 12:02:28 03/24/2003/25/2020 BMP, serum or plasm a anion gap 11.8 5.0-15 .0 Not Available [address], [address], 03/25/2020 12:02:28 03/24/2003/25/2020 BMP, serum or plasm a CO2 25 mmol/ L 21-32 Not Available [address], [address], 03/25/2020 12:02:28 03/24/20 20 03/25/2020 BMP, serum or plasm a calcium 8.9 mg/dL 8.5-10 .3 Not Available [address], [address], 03/25/2020 12:02:28 03/24/2003/25/2020 TSH, serum or plasm a TSH 0.82 uIU/m L 0.50-6 .00 The Ameri can Colle ge of Endoc rinol ogy and Ameri can Thyro id Assoc iatio n recom mend goal TSH value s betwe en 0.4-4 .0 mIU/m L. Not Available [address], [address], 03/25/2020 12:20:01 03/24/20 20 03/25/2020 vitam in D, 25-hy droxy , total , serum vitamin D 25-hydroxy EIA 37.9 NG/mL 20.0-9 9.9 Thera py is based on measu remen t of total 25-OH D, with level s less than 20 ng/mL indic ative of Vitam in D defic iency . Level s betwe en 20ng/ mL and 30 ng/mL sugge st insuf ficie ncy. Optim al Level s are great er than 30 ng/mL . Not Available [address], [address], 03/25/2020 12:20:02 03/24/20 20 03/25/2020 AST/S GOT (aspa rtate amino trans feras e), serum or plasm a AST 25 U/L 0-37 LIPG= Speci dora Perez dly Lipem ic. Chem Resul ts may be effec deanna. Not Available [address], [address], 03/25/2020 12:46:25 03/24/20 20 03/25/2020 ALT (sara ine amino trans feras e), serum or plasm a ALT 49 U/L 6-63 Not Available [address], [address], 03/25/2020 12:46:26 03/24/20 20 03/25/2020 MAURICIO (anti nucle ar antib odies ) scree n, ifa, serum MAURICIO screen, ifa NEGATI VE negati ve normal MAURICIO IFA is a first line scree n for detec ting the prese nce of up to appro ximat aida 150 autoa ntibo dies in vario us autoi mmune disea ses. A negat johanna MAURICIO IFA resul t sugge sts an MAURICIO-a ssoci ated autoi mmune disea se is not prese nt at this time, but is not defin itive . If there is high clini prerna suspi cion for Sjogr en's syndr ome, testi ng for anti- SS-A/ Ro antib lauro shoul d be consi dered . Anti- Elsi-1 antib lauro shoul d be consi dered for clini minh suspe cted infla mmato ry myopa lynnette . AC-0: Negat johanna Inter natio nal Conse nsus on MAURICIO Patte rns (http s://d oi.or g/10. 1515/ [facility]2017- 0052) For addit ional infor li yanes e refer to http: //[facility] adalberto santamaria.Que stDia gnost ics.c om/fa q/FAQ 177 (This link is being provi ded for infor rachna kaplan/ educloretta marie purpo ses only. ) Not Available [facility] [address] [place] [address], [place], [address], 03/25/2020 15:32:58 03/24/2003/25/2020 HbA1c (hemo globi n A1c), blood hemoglobin A1C 5.9 % 4.8-6. 0 Goal: <7% in Patie nts with Diabe barbie Not Available [address], [address], 03/25/2020 15:42:28 03/24/2003/25/2020 HbA1c (hemo globi n A1c), blood estimated average glucose 122.6 mg/dL Not Available [address], [address], 03/25/2020 15:42:28 Result Notes None recorded. Problems Name Problem SNOMED Code Status Onset Date Resolution Date Notes Provider Name and Address Organization Details Recorded Time Hypothyro idism 36230128 [place], [address], [facility] 6 10:34:37 Psoriasis 1097407 [place], [address], [facility] 6 17:39:38 Osteoarth ritis 167183984 [place], [address], [facility] 6 17:21:01 Vitamin D deficienc y 03614777 Active 2015 [place], [address], [facility] 6 12:18:54 Cobalamin deficienc y 367150412 Active 2015 [place], [address], [facility] 6 12:19:24 Ophthalmi c migraine 89700744 Active 2017 MD [place], [address], [facility] [place] 8 12:49:07 Obesity 522828800 Active 2017 [place], [address], [facility] [place] 8 10:43:25 Adenomato us polyp of colon 624280261 Active 2018 [place], [address], [facility] [place] 9 12:38:22 Cyst of kidney 377878828 Active 2019 repeat US 11/2020 to assure no changes [place], [address], [facility] [place] 0 08:56:05 Complicat ion of medical care 08860270 Completed 200708/14/2013 Darling Rocha MD [address] [place] [address] [place], [address], [facility] [place] 6 17:21:01 Problem Notes None recorded. Procedures Surgical History Date Name Laterality Status Provider Name and Address Organization Details Recorded Time 05/08/20 20 Cerumen Removal - Irrigation/Lava ge completed Agatha Boles NP [address] [place] [address], [address], [facility] 05/08/2020 13:33:51 10/10/19 20 Cerumen Removal - Irrigation/Lava ge completed Nori Meadows RN [facility] 10/10/2019 14:57:52 05/04/20 19 POC Urinalysis Testing completed Bette Pardo MA [facility] 05/04/2019 11:23:15 11/21/19 19 POC Urinalysis Testing completed Swati Patricia MA [facility] 11/21/2018 11:38:48 08/28/20 18 Cerumen Removal - Irrigation/Lava ge completed Rita Ramos [facility] 08/28/2018 11:46:20 03/16/20 18 Cerumen Removal - Irrigation/Lava ge completed Yadira Finley MD [address] [place] [address], [address], [facility] 03/16/2018 15:02:34 01/06/20 18 [address]: Therapeutic Exercise completed Deirdre Trujillo, PT [address] [place], [address], [facility] 01/05/2018 13:09:35 01/06/20 18 [id number]: Manual Therapy completed Deirdre Trujillo, PT [address] [place], [address], [facility] 01/05/2018 13:09:38 01/06/20 18 Treatment and Advice completed Deirdre Trujillo, PT [address] [place], [address], [facility] 01/05/2018 12:41:49 12/27/19 18 [id number]: Therapeutic Exercise completed Deirdre Trujillo, PT [address] [place], [address], [facility] 12/26/2017 13:30:27 12/27/19 18 Treatment and Advice completed Deirdre Trujillo, PT [address] [place], [address], [facility] 12/26/2017 13:27:24 12/20/19 18 [id number]: Therapeutic Exercise completed Deirdre Trujillo, PT [address] [place], [address], [facility] 12/19/2017 15:39:43 12/20/19 18 Treatment and Advice completed Deirdre Trujillo, PT [address] [place], [address], [facility] 12/19/2017 14:56:59 12/13/19 18 Physical Activity Counselling completed Deirdre Trujillo, PT [address] [place], [address], [facility] 12/12/2017 15:27:42 12/13/19 18 [id number]: PT Eval, Moderate Complexity completed Deirdre Trujillo, PT [address] [place], [address], [facility] 12/12/2017 15:27:38 12/13/19 18 Treatment and Advice completed Deirdre Trujillo, PT [address] [place], [address], [facility] 12/12/2017 14:31:02 09/23/20 16 Cerumen Removal - Irrigation/Lava ge completed Isabella Pulido LPN [facility] 09/23/2016 11:49:35 02/02/20 16 POC Urinalysis Testing completed Jory Vallecillo LPN [facility] 02/02/2016 16:08:03 Imaging Results None recorded. Procedure Notes None recorded. Medical Equipment None Reported. Allergies Allergen ID Allergen Name Allergen Category Reaction Reaction Severity Criticality Documentation Date Start Date Code Code System Note Provider Name and Address Organization Details Recorded Time 715358 meloxicam medicatio n Not available Not available Not available 04/09/2015 15606 RxNorm Too drows y. Milagro Chris, TOMAS [address] [facility], [facility] [place], [address] , [facility] 5 12:03:16 [id number] epinephri ne medicatio n Not available Not available Not available 07/22/2015 3992 RxNorm pt has had & has been o.k. but had & got jitte ry & rash the next day. Patricia Awad [facility] 6 11:50:09 160174 Chantix medicatio n Not available Not available Not available 07/22/2015 [address] Juan F Nevarez [facility] 5 12:17:50 [id number] doxycycli ne Not available nausea Not available Not available 09/19/2018 3640 RxNorm Christie Moser [facility] 8 15:44:39 Medications Name Sig Start Date Stop Date Status Note LastModified by Organization Details LastModified Time celecoxib 200 mg capsule TAKE ONE CAPSULE BY MOUTH EVERY DAY AT BEDTIME active doesn't take daily Not Available Not Available Not Available amoxicill in 500 mg capsule TK 1 C PO TID TAT 03/16 completed Not Available Not Available Not Available Flomax 0.4 mg capsule Take 1 capsule every day by oral route for 7 days. 02/12 completed Not Available Not Available Not Available azithromy sidney 250 mg tablet TAKE 2 TABLETS BY MOUTH TODAY, THEN TAKE 1 TABLET DAILY FOR 4 DAYS active Not Available Not Available No t Available ibuprofen 800 mg tablet TK 1 T PO TID FOR SWELLING 03/16 completed Not Available Not Available Not Available fluconazo le 150 mg tablet 05/08 completed Not Available Not Available Not Available hydrocodo ne 5 mg-acetam inophen 325 mg tablet TK 1 T PO Q 6 H PRF PAIN 05/04 completed Not Available Not Available Not Available Keflex 500 mg capsule Take 1 capsule every 6 hours by oral route for 7 days. 02/12 completed Not Available Not Available Not Available fluconazo le 200 mg tablet 03/16 completed Not Available Not Available Not Available triazolam 0.125 mg tablet TK 1 TO 2 TS PO 90 MINUTES BEFORE APPOINTM ENT 03/16 completed Not Available Not Available Not Available alclometa sone 0.05 % topical cream active Not Available Not Available Not Available triamcino lone acetonide 0.1 % topical cream APPLY TO AFFECTED AREA TWICE A DAY *DO NOT USE ON FACE* active Not Available Not Available No t Available ondansetr on 8 mg disintegr ating tablet Place 1 tablet every 8 hours by translin gual route for 2 days. 02/12 completed Not Available Not Available Not Available meloxicam 7.5 mg tablet TAKE 1 TABLET BY MOUTH EVERY DAY WITH FOOD active Not Available Not Available No t Available levothyro xine 100 mcg tablet TAKE 1 TABLET BY MOUTH EVERY DAY active Not Available Not Available No t Available [place] Thyroid 15 mg tablet TAKE 4 TABLETS BY MOUTH EVERY DAY 01/14 completed Not Available Not Available Not Available Zofran 8 mg tablet Take 1 tablet every 8 hours by oral route for 2 days. 02/12 completed Not Available Not Available Not Available methotrex ate sodium 2.5 mg tablet TAKE UP TO 6 TABLETS BY MOUTH ONCE WEEKLY DIRECTED 02/06 completed Has not been using lately 11/21/17 will restat Not Available Not Available Not Available baclofen 10 mg tablet TAKE 1/2 TO 1 TABLET BY MOUTH 3 TIMES A DAY FOR SPASM 09/23 completed Not Available Not Available Not Available benzonata te 100 mg capsule TAKE 1 CAPSULE BY MOUTH THREE TIMES A DAY NEEDED 02/17 completed Not Available Not Available Not Available clotrimaz ole-betam ethasone 1 %-0.05 % topical cream APPLY TOPICALL Y TO AFFECTED AREA TWICE A DAY FOR 2 WEEKS active Not Available Not Available No t Available metronida zole 0.75 % topical cream 03/16 completed Not Available Not Available Not Available folic acid 1 mg tablet TAKE 1 TABLET(S ) EVERY DAY BY ORAL ROUTE FOR 90 DAYS. active Not Available Not Available No t Available bisacodyl 5 mg tablet,de layed release TAKE 4 TABLETS BY MOUTH WITH 8OZ OF WATER ONCE THE DAY BEFORE PROCEDUR E FOR 1 DAY 02/17 completed Not Available Not Available Not Available clobetaso l 0.05 % topical ointment APPLY TO AFFECTED AREA TWICE A DAY active prn Not Available Not Available No t Available alclometa sone 0.05 % topical ointment 02/17 completed PRN 09/19/18 -rp Not Available Not Available Not Available nystatin 100,000 unit/gram topical powder APPLY TO THE AFFECTED AREA(S) BY TOPICAL ROUTE 2 TIMES PER DAY 10/24 completed Not Available Not Available Not Available ketoconaz ole 2 % topical cream active Not Available Not Available Not Available clobetaso l 0.05 % scalp solution active Not Available Not Available Not Available clotrimaz ole 1 % topical cream APPLY TO THE AFFECTED AND SURROUND ING AREAS OF SKIN BY TOPICAL ROUTE 2 TIMES PER DAY IN THE MORNING AND EVENING active PRN Not Available Not Available No t Available diazepam 5 mg tablet Take 1 tablet twice a day by oral route as needed for 3 days. 06/29 completed Not Available Not Available Not Available amoxicill in 875 mg-potass ium clavulana te 125 mg tablet 05/04 completed Not Available Not Available Not Available nabumeton e 500 mg tablet Take 1 tablet twice a day by oral route as needed. 05/19 completed Not Available Not Available Not Available Estrace 0.01% (0.1 mg/gram) vaginal cream INSERT 1 APPLICAT ORFUL VAGINALL Y DAILY AT BEDTIME 05/28 completed Not Available Not Available Not Available escitalop kaitlin 10 mg tablet TAKE 1/2 TABLET BY MOUTH FOR THE FIRST 4 DAYS THEN TAKE 1 TABLET BY MOUTH EVERY DAY 12/27 completed PRN Not Available Not Available Not Available nitrofura ntoin monohydra te/macroc rystals 100 mg capsule Take 1 capsule every 12 hours by oral route for 5 days. 10/10 completed Not Available Not Available Not Available chlorhexi dine gluconate 0.12 % mouthwash RINSE WITH 15 ML PO BID UTD. DO NOT SWALLOW. 03/16 completed Not Available Not Available Not Available fluocinol one acetonide oil 0.01 % ear drops INSTILL 5 DROPS INTO AFFECTED EAR(S) BY OTIC ROUTE 2 TIMES PER DAY as needed active Not Available Not Available No t Available GaviLyte- G 236 gram-22.7 4 gram-6.74 gram-5.86 gram oral solution 02/17 completed Not Available Not Available Not Available Stelara 45 mg/0.5 mL subcutane ous syringe 02/17 completed unable to afford 02/18/20 SRPevery 3 month/ will finsih after November Not Available Not Available Not Available Vitals Date Recorded Body height Body mass index (BMI) Body weight Provider Name and Address Organization Details Last Updated DateTime 02/18/2020 162.56 cm 32.6 kg/m2 09502.55 g Darling Rocha MD [address] [place] [address], [address], [facility] 02/18/2020 14:08:40 Date Recorded Body height Body mass index (BMI) Body weight Body temperature Heart rate Systolic blood pressure Diastolic blood pressure Provider Name and Address Organization Details Last Updated DateTime 0 162.56 cm 33.7 kg/m2 39919.5 g 97.8 [degF] 68 /min 136 mm[Hg] 84 mm[Hg] Juan F Nevarez MA [facility] 0 12:21:28 Social History Question Answer Notes LastModified by Organization Details LastModified Time Tobacco Smoking Status Former Smoker quit 8yrs ago-04/09/15, smoked for 30 yrs, smoked 1-2 PPD RODRIGO Singer, [facility] 04/09/2015 11:51:45 What Is Your Level Of Alcohol Consumption? Occasional 2-drinks A Week Information not available 04/09/2015 Do You Wear A Helmet When Biking? Yes N/a juliane Information not available 06/29/2016 What Is Your Level Of Caffeine Consumption? Moderate 2 Cups Of Coffee A Day- 2-3 Cans Of Diet Soda A Day Information not available 04/09/2015 How Much Tobacco Do You Chew? None Information not available 04/09/2015 What Type Of Diet Are You Following? REGULAR Information not available 04/09/2015 Which Illicit Or Recreational Drugs Have You Used? None Information not available 10/23/2015 Do You Or Have You Ever Used E-cigarettes Or Vape? 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 6-10yearssincelast cigarette Information not available 10/23/2015 How Many Days In The Past Year Have You Had A Heavy Drinking Consumption (4+ Female, 5+ Male)? 0 Information not available 10/23/2015 Are There Any Guns Present In Your Home? No Information not available 10/23/2015 Live Alone Or With Others? With Others Information not available 10/23/2015 Does The Patient Have Difficulty Speaking Mohawk? No Information not available 04/09/2015 Does The Patient Have Difficulty Reading Mohawk? No Information not available 04/09/2015 Patient Has Health Care Proxy Signed And In Chart Yes Ezio Prieto, Spouse Information not available 04/10/2015 Transgender No Information not available 10/23/2015 Marital Status Ezio 1984 Informatio n not available 10/23/2015 Mosquito Repellent Used Routinely Yes When Milagros Information not available 04/09/2015 What Was The Date Of Your Most Recent Tobacco Screening? 05/08/2020 [email or web address] Information not available 05/08/2020 How Many Children Do You Have? 2 Edison 1984 And Lm 1986 Information not available 10/23/2015 Are There Any Occupational Health Risks Where You Work? None Information not available 10/23/2015 Seat Belts Used Routinely Yes Information not available 04/09/2015 Are You Sexually Active? Yes Information not available 04/10/2015 Smoke Alarm In Home Yes Information not available 04/09/2015 Do You Or Have You Ever Used Smokeless Tobacco? Never Used Smokeless Tobacco Information not available 10/10/2019 What Types Of Sporting Activities Do You Participate In? None Information not available 04/09/2015 General Stress Level Medium Information not available 02/12/2019 Do You Use Sunscreen Routinely? Yes Information not available 04/09/2015 Sex: Unknown Functional Status None recorded. Mental Status None recorded. Family History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 [facility], [address] [place] [address] 05/04/2019 11:03:23 05/04/2019 11:44:24 Increased frequency of urination 585429641 R35.0 Informed Pt that urinalysis show urinary tract infection. Patient instructed to push fluids, to follow up for persistent or worsening symptoms or fever or back pain. Educate Pt good bathroom hygiene and wiping front to back. All questions were addressed. Pt understand s and agrees with treatment plan Diarrhea 78265005 R19.7 spent over 30 min with patient- over 50% of the time discussing management of underlying condition, counseling and educationP t reports his stool this morning was back to normal color and consistenc y. Informed Pt that since the stool is back to normal color and consistenc y then it is most likely a viral gastroente ritis. Educated Pt to good hand hygiene, stay hydrated, BRAT diet, have a soft/liqui d diet and then transition to regular normal diet as tolerated. Advised Pt to return or go to ER if symptoms worsens such as nausea/vom iting, fever/chil ls, and worsening of diarrhea. All questions were addressed. Pt understand s and agrees with treatment plan [id number] Isabella Pulido LPN , [facility], [address] [place] [address] 08/07/2019 15:47:21 08/08/2019 07:14:18 Active or passive immunization 356788172 Z23 [id number] Darling Rocha MD , [facility] [address] [place] [address] 10/10/2019 13:48:06 10/10/2019 14:56:39 Postmenopausal state 10595820 Z78.0 Active or passive immunization 801354762 Z23 Low back pain 668873638 M54.5 cord and tenderness low backhas been worse latelyenc to start with PTokay NSAIDS PRN Psoriasis 6347191 L40.9 working w dermdoing light therapy Impacted c erumen of bilateral ears 2828399176 325607 H61.23 removal todaytx flaky ear canals Eczema of external auditory canal 70151188 H60.549 drops todayhas been using q tips to get in topicals and wax is packing in [id number] Milagro Valdovinos PA-C , [facility], [address] [place] [address] 11/22/2019 13:28:45 11/25/2019 10:39:50 Cough 71240877 R05 URI/Cough: Appears viral at this point. Advised symptomati c tx with warmed fluids with honey, humidifier , mucinex. Declined cough syrup with codeine.If symptoms persist or acutely worsen, please return to office or go to urgent care if needed. Pt understand s and agrees with plan. [id number] Darling Rocha MD , [facility], [address] [place] [address] 11/26/2019 14:33:01 11/26/2019 15:16:57 Urinary incontinence 254972592 R32 noted worse with coughlikel y could do pelvic floor PT in futurewoul d like to defer Cough 40946764 R05 ongoing viral coughsome improvemen tlots of incontinen cehasn't tried tessalonwi ll do sono fever or advancing sxlungs clear Kidney stone 89502612 N2 0.0 hx ofsounds like she passed one last monthcheck renal US for stones, hydro Active or passive immunization 948395385 Z23 [id number] Darling Rocha MD , [facility], [address] [place] [address] 02/18/2020 13:39:38 02/20/2020 11:33:56 Hypothyroidism 29534593 E03.9 check TSHtaking levothyrox ine daily on empty stomach Obesity 864353693 E66.9 .ongoing goals and progress Vitamin D deficiency 347 63656 E55.9 taking 3000 iu a day, advise of rheumatolo gist Osteoarthritis 490344905 M19.90 knees and hipsworkin g with orthocorti sone as neededstab le Psoriasis 0282614 L40.9 working w dermdoing light therapyoff DMARDs for now, expense and concern with COVID 19 External hemorrhoids 239 92235 K64.4 intermitte nthas normal soft daily stoolstate s she retains stooltakin g metamucil or miralax dailyrecom mend trying miralax daily, okay to use both as metamucil is a fiber supplement Intertrigo of abdominal skin fold 072550739 L30.4 ongoing issuestrea ting OTC but not responding doing preventati ve care with drying and powderwill prescribe below [id number] Shama Ge DO , [facility], [address] [place] [address] 05/04/2020 14:11:54 05/05/2020 14:31:25 Bilateral sensation of blocked ears 5718831823 4687891 H93.293 Pts symptoms have been refractory to debrox and flushing at home. Pt to have hybrid visit to have ears evaluated and potentiall y irrigated. Psoriasis 7430583 L40.9 Likely contributi ng to cerumen/de bris buildup in ears. As above. Impaired f asting glycemia 114841990 R73.01 Discussed results with patient, advised that her A1C is improved (now 5.9) and to continue diet low in sweets/car bs and to keep exercising as this is making a difference . [id number] Nori Meadows RN , [facility], [address] [place] [address] 05/08/2020 11:24:25 05/11/2020 16:19:02 Active or passive immunization 524533491 Z23 [id number] Amaury Robbins MD , [facility] [address] [place] [address] 05/08/2020 12:20:16 05/11/2020 16:38:38 Hearing loss 67361975 H91.93 Due to impacted wax. Nurse in as above. F/u prn recurrent sx Impacted cerumen 2057027 6 H61.23 [id number] NILSON Montilla , [facility], [address] [place] [address] 07/11/2020 10:52:06 07/13/2020 13:11:35 Active or passive immunization 965036164 Z23 Health Concerns Section Related Observation LastModified by Organization Detai ls LastModified Time None Recorded Concern Status LastModified by Organization Details LastModified Time None Recorded Advance Directives Directive None Recorded Payers Encounter Date Sequence Insurance Name Policy Number Policy Schneider Covered Member ID Schneider Member ID Guarantor Name 02/18/2020 1 [place] [employer] [facility] [id number] 67 [facility] 02/18/2020 2 [place] [id number] [facility] [id number] [facility] 05/04/2020 1 [place] [employer] [place] [facility] [id number] 67 [facility] 05/04/2020 2 [place] [id number] [facility] [id number] 05/08/2020 1 [place] [employer] [employer] [facility] [id number] 67 [facility] 05/08/2020 2 [place] [id number] [facility] [id number] [facility] 05/08/2020 1 [place] [employer] [facility] [id number] 67 [facility] 05/08/2020 2 [place] [id number] [facility] [id number] [facility] 07/11/2020 1 [place] [employer] [place] [facility] [id number] 67 [facility] 07/11/2020 2 [place] [id number] [facility] [id number] [facility] Notes Date Note Type Note Provider Name and Address Organization Details Recorded Time 02/18/2020 text/html patient reports weight 190lbs, pulse 84 Patient agreed to this visit via phone or secure telehealth platform due to the COVID -19 pandemic. Patient understands this is a scheduled visit and the usual procedures with regard to billing and confidentiality apply. Patient was notified that the provider location is [facility] [place]: [place] During the visit the patient? s medical history and medical record were reviewed. The patient was notified to call our office for worsening or urgent symptoms. She is doing okay, usual litany of complaints, but feeling fortunate and grateful to have what she has and to help people how she can.Her sister on mother's day, had been in LTC for 25 years, sick since she was 20, lots of impact and emotion here, layers of relationship, grief, guilt. A hard few weeks.She has a group of friends that she talks with. Walking when she can, able to walk with son at [place] in a moment of not having a lot of pain, having had steroid injections.Doing small things for others.One of her sons is living with her so he can work and this has been nice. She feels her health is the same. Feels like ground hog day, knee and hip pain, ongoing arthritis more in the hips, knee surgery was pushed off/ feels hips hurting bc of knees. She is not sure about wanting to reschedule.Her candy spreader asked her to do labs here; also to check Vit D and to take more, she is taking 3000 iu a day. Psoriasis flared off stellara, now doing UVB tx; stellara was too expensive on Medicare. Has hemorrhoids, had some bleeding last week, doesn't know they are there and then they can be severe. Using miralax and metamucil. Notes some occ blood or flakes in her urine; thinks she is passing some stone material, occ flank/back pain; not often, occ every 4-6 weeks. needs an antifungal for her pannus as it is getting more recalitrant to OTC< used clotrimazole and miconazole, continues to sting and sweat hsbd working at home, getting along okay, with each other more and working through that in the small house, feels safe, no crisis Darling Rocha MD [address] [place] [address], [place], [phone], [facility] [place] 02/18/2020 14:24:52 05/04/2020 text/html Pt would like to have ears cleaned. Pt is currently using H2O2 along with prescribed ear drops. Pt stated mentioned needing a fasting BS lab. Dr. Ramachandran had mentioned to her it was high. VV: telephone Pt reports that ROSA wanted to do another type of glucose test on her bc her bs have been high. Pt reports that she has psoriasis in her ears and that they are now blocked and affecting her hearing. She has been trying debrox at home but has been unable to unblock her ears. Shama Ge DO [address] [place] [address], [phone], [facility] [place] 05/04/2020 14:55:41 05/08/2020 text/html Pt here d/t both ears feeling blocked/plugged R>L. Has been using otc drops for 8 days and tried to irrigate this herself with minimal improvement in sx. No pain, no cold sx, no fever. Has bad psoriasis including in and around her ears. Amaury Robbins MD [address] [place] [address], [phone], [facility] [place] 05/08/2020 13:56:54 OBGyn Episode No OBEpisode recorded.
== END 2024-10-03 08:22 | disposition home or self-care (01) ==
PROVIDERS: PCP Family Medicine; Visit Provider Orthopaedic Surgery
DX: M25.562 Pain in left knee (principal); M17.12 Unilateral primary osteoarthritis, left knee
CPT/HCPCS: 99213; G2211

== ENCOUNTER 2024-10-03 08:32 | Outpatient (REF) | payer MEDICARE, SELFPAY | END 2024-10-03 08:33 | disposition home or self-care (01) | LOC: HO.LAB 08:32 | PROVIDERS: PCP Family Medicine; Visit Provider Orthopaedic Surgery | DX: Z13.89 Encounter for screening for other disorder (principal) ==

== ENCOUNTER 2024-10-03 10:49 | Outpatient (REF) | payer MEDICARE, SELFPAY ==
--- NOTE | ~2024-10-03 | XR_ITS ---
EXAMINATION: XR KNEE, LEFT CLINICAL INFORMATION: M17.12 - Unilateral primary osteoarthritis, left knee COMPARISON: Left knee 09/13/2023 TECHNIQUE: 3 views of the left knee. FINDINGS: Loss of tricompartment joint space with mild periarticular spurring lateral and patellofemoral compartment. There is minimal chondrocalcinosis. There is moderate suprapatellar joint effusion. There are no loose bodies. There is no visible acute fracture, dislocation or lytic process. There is mild osteopenia of tissue normal. XR/XR knee LT 3V IMPRESSION: Degenerative changes in the tricompartment slightly greater in medial compartment. There is moderate suprapatellar joint effusion. No visible acute fracture, dislocation or subluxation seen. Electronically signed by: Julian Johnston MD 10/08/2024 01:09 PM YONI LEOS
== END 2024-10-03 10:50 | disposition home or self-care (01) ==
LOC: HO.HOSX 10:49
PROVIDERS: Visit Provider Orthopaedic Surgery
DX: M25.562 Pain in left knee (principal); M17.12 Unilateral primary osteoarthritis, left knee
CPT/HCPCS: 73562; 99212

== ENCOUNTER 2024-10-07 05:53 | Day surgery (SDC) | payer MEDICARE, SELFPAY ==
--- OUTSIDE RECORDS SUMMARY | 2024-09-04 15:20 | XMS_ITS | Continuity of Care Document ---
Author Organization [facility] Address [address] [place] [address]- Care Team Providers Care Alteration Specialist Name Role Phone Jose Carlos MAYES, Meredith Lindsey Primary Care Physic dariusz Encounter [facility] [place] [facility] Date(s): 07/30/24 - 08/29/24 [facility] [address] [place] [address]- Encounter Type: Triage Allergies, Adverse Reactions, Alerts Substance Criticality Severity Reaction Reaction Severity Status sulfamethoxazole Vomiting Act johanna epinephrine Active Chantix High criticality Severe EMOTIONAL DISCORD Active Adhesive Bandage Act johanna Immunizations Given and Recorded Vaccine Date Status Refusal Reason pneumococcal 20-valent conjugate vaccine 01/01/24 Given RSV vaccine preF3, recombinant 07/19/23 Recorded influenza virus vaccine, inactivated 07/14/23 Give n influenza virus vaccine, inactivated 06/17/22 Serjio rded influenza virus vaccine, inactivated 07/27/21 Serjio rded influenza virus vaccine, inactivated 07/11/20 Serjio rded influenza virus vaccine, inactivated 08/07/19 Serjio rded influenza virus vaccine, inactivated 08/25/18 Serjio rded influenza virus vaccine, inactivated 10/13/17 Serjio rded influenza virus vaccine, inactivated 07/14/16 Serjio rded influenza virus vaccine, inactivated 08/05/13 Give n influenza virus vaccine, inactivated 1 06/13/11 Gi dede SARS-CoV-2(COVID-19)mRNA-LNP vac([id number]) 07/09/23 Recorded [id number] 12y+ bivalent booster vax 06/17/22 Recorded SARS-CoV-2 mRNA ([id number]) vax 12/31/21 Recorded SARS-CoV-2 (COVID-19) mRNA BNT-162b2 vac 07/29/21 Given SARS-CoV-2 (COVID-19) Ad26 vaccine 11/28/20 Record ed Influenza Virus Vaccine (oldterm) 06/25/20 Recorde d tetanus-diphtheria toxoids (Td) 05/08/20 Recorded tetanus-diphtheria toxoids (Td) 01/29/07 Given pneumococcal 23-valent vaccine 10/10/19 Recorded FluLaval (oldterm) 2 08/13/12 Given tetanus/diphtheria/pertussis, acel(Tdap) 3 07/20/12 Given 1Admin Note: 04/19/11 VIM GIVEN TODAY FLULAVAL 2Admin Note: VIS GIVEN 3Admin Note: VIM 08/12/08 Medications betamethasone-clotrimazole 0.05%-1% topical cream 1 application, Topically, 2 times a day, # 15 Gm, 0 Refills, Maintenance, 03/14/24 10:55:00 AM EDT, Cream, Partial fill upon patient request if the prescription is for a schedule II opioid drug. Start Date: 03/14/24 Status: Ordered Quantity: 15.0 Unit: g Repeat number: 1 celecoxib 200 mg oral capsule 1 capsule = 200 mg, By Mouth, Daily, # 30 capsule, 0 Refills, Maintenance, 01/02/24 1:08:00 PM EDT, Capsule, Partial fill upon patient request if the prescription is for a schedule II opioid drug. Start Date: 01/02/24 Status: Ordered Quantity: 30.0 Unit: capsule Repeat number: 1 clobetasol 0.05% topical solution APPLY 2X DAILY TO SCALP FOR 2 WEEKS THEN STOP FOR 2 WEEKS REPEAT CYCLE NEEDED. Start Date: 05/24/21 Status: Ordered Repeat number: 1 omeprazole 40 mg oral enteric coated capsule 1 capsule = 40 mg, By Mouth, 2 times a day, # 180 capsule, 2 Refills, Maintenance, 05/13/24 9:05:00 AM EDT, EC Capsule, [id number], Partial fill upon patient request if the prescription is fora schedule II opioid drug., 163, cm, 03/14/24 10:56:00 EDT, Height, 67.4, kg, 11/21/22 9:04:00 EST,Dry Weight Start Date: 05/13/24 Status: Ordered Quantity: 180.0 Unit: capsule Repeat number: 3 Probiotic Formula By Mouth, Daily, 0 Refills, Maintenance, 07/09/21 2:19:00 PM EDT, Partial fill upon patient requestif the prescription is for a schedule II opioid drug. Start Date: 07/09/21 Status: Ordered Repeat number: 1 Reclast 5 mg/100 mL intravenous solution = 5 mg, IV Infusion, Once, 0 Refills, Maintenance, 06/17/22 2:54:00 PM EDT, Partial fill upon patient request if the prescription is for a schedule II opioid drug. Start Date: 06/17/22 Status: Ordered Repeat number: 1 Stelara PFS 45 mg/0.5 mL subcutaneous solution INJECT 1 SYRINGE UNDER THE SKIN EVERY 12 WEEKS Start Date: 01/02/24 Status: Ordered Repeat number: 1 Vitamin D3 By Mouth, Daily, 0 Refills, Maintenance, 07/28/20 10:17:00 AM EST Start Date: 07/28/20 Status: Ordered Repeat number: 1 Problem List Condition Confirmation Course Effective Dates Status Health Status Informant Abdominal pain Confirmed Active Cellulitis of right knee Confirmed Active Cough Confirmed Active Dysphagia Confirmed Active Esophageal dysmotility Confirmed Active Fall on steps Confirmed Active GERD with esophagitis Confirmed Active Hypertension Confirmed Active Hypertriglyceridemia Confirmed Active Hypothyroidism Confirmed Active Urinary frequency Confirmed Active Low blood pressure Confirmed Active Ocular migraine Confirmed Active Osteoarthritis of right knee Confirmed Active Osteoporosis Confirmed Active Toe pain, right Confirmed Active Psoriasis Confirmed Active Multiple falls Confirmed Active Sore throat Confirmed Active History of tobacco abuse Confirmed Active Urolithiasis Confirmed Active Vitamin D deficiency Confirmed Active Social History Social History Type Response Tobacco Other: 1.5-2 ppd for 32 yrs. Sex Sex Representation Female (finding) Patient Care team information Care Team Personnel Name: Jose Carlos MAYES, Meredith Lindsey Position: [facility] Physician - Primary Care Member Role: PCP Address: [address] [place] [address] Telecom: Care Team Related Persons Name: PAUL VIDALES Name: EZIO VIDALES Insurance Providers Guarantor name: ALEE VIDALES Health Plan Information #: 1 Payer: MEDICARE PART B OUTPT Member Number: NA Policy Number: NA Group Number: NA Health Plan Information #: 2 Payer: [facility] Member Number: NA Policy Number: NA Group Number: NA
--- OUTSIDE RECORDS SUMMARY | 2024-09-04 15:20 | XMS_ITS | Continuity of Care Document ---
Author Organization [facility] Address [address] [place] [address]- Care Team Providers Care Ore Crusher Name Role Phone Jose Carlos MAYES, Meredith Lindsey Primary Care Physic dariusz Encounter [facility] Date(s): 07/31/24 - 08/30/24 [facility] [address] [place] [address]- Encounter Type: Triage Allergies, Adverse Reactions, Alerts Substance Criticality Severity Reaction Reaction Severity Status sulfamethoxazole Vomiting Act johanna epinephrine Active Adhesive Bandage Act johanna Chantix High criticality Severe EMOTIONAL DISCORD Active Immunizations Given and Recorded Vaccine Date Status [...] Serjio rded influenza virus vaccine, inactivated 07/14/16 Serjoi rded influenza virus vaccine, inactivated 08/05/13 Give n influenza virus vaccine, inactivated 1 06/13/11 Gi dede SARS-CoV-2(COVID-19)mRNA-LNP vac([id number]) 07/09/23 Recorded [id number] 12y+ bivalent booster vax 06/17/22 Recorded SARS-CoV-2 mRNA ([id number]) vax 12/31/21 Recorded SARS-CoV-2 (COVID-19) mRNA BNT-162b2 [...] 05/13/24 9:05:00 AM EDT, EC Capsule, [id number], Partial fill upon patient request if the [...] Name: Jose Carlos MAYES, Meredith Lindsey Position: [facility] Physician - Primary Care Member Role: PCP Address: [address] [place] [address] Telecom: Care Team Related Persons Name: PAUL VIDALES Name: EZIO VIDALES Insurance Providers Guarantor name: ALEE VIDALES Health Plan Information #: 1 Payer: MEDICARE PART B OUTPT Member Number: NA Policy Number: NA Group Number: NA Health Plan Information #: 2 Payer: [facility] Member Number: NA Policy Number: NA Group Number: NA
--- OUTSIDE RECORDS SUMMARY | 2024-09-04 15:20 | XMS_ITS | Continuity of Care Document ---
Author Organization [facility] Address [address] [facility] [place] [address]- Care Team Providers Care Trimming Inspector Name Role Phone Jose Carlos MAYES, Meredith Lindsey Primary Care Physic dariusz Encounter 07/30/24 - 08/06/24 [facility] [address] [facility] [facility], [address] [place] [address]- Attending Physician: Meredith Branch MD Admitting Physician: Meredith Branch MD Referring Physician: Meredith Branch MD Encounter Type: OutPatient One Time Allergies, Adverse Reactions, Alerts Substance Criticality Severity [...] vaccine, inactivated 1 06/13/11 Gi dede SARS-CoV-2(COVID-19)mRNA-LNP vac([id number]) 07/09/23 Recorded [id number] 12y+ bivalent booster vax 06/17/22 Recorded SARS-CoV-2 mRNA ([id number]-[id number]) vax 12/31/21 Recorded SARS-CoV-2 (COVID-19) mRNA BNT-162b2 [...] 05/13/24 9:05:00 AM EDT, EC Capsule, [id number], Partial fill upon patient request if the [...] Date: 07/28/20 Status: Ordered Repeat number: 1 Zithromax Z-Julian 250 mg oral tablet 500 mg today, then 250 mg daily, By Mouth, Daily, as directed on package labeling, # 1 packet, 0 Refills, Maintenance, 06/25/24 11:36:00 AM EDT, [id number], Partial fill upon patient request if the prescription is for a schedule II opioid drug., 163, cm, 06/25/24 10:34:00 EDT, Height, 70.5, kg, 06/25/24 10:34:00 EDT, Dry Weight Start Date: 06/25/24 Status: Ordered Quantity: 1.0 Unit: pack/packet Repeat number: 1 Indication: Pneumonia, unspecified organism Problem List Condition Confirmation Course Effective Dates [...] Confirmed Active Vitamin D deficiency Confirmed Active Results Radiology Reports * Exam Date Time Procedure Performing Provider Status 07/30/24 11:08 AM Chest 2 Views Frontal and Lat Vonnie Aguilera (Verified) Notes: (Chest 2 Views Frontal and Lat) Reason For Exam: F/U pneumonia;Other: RESULT: Chest 2 Views Frontal and Lat Chest 2 Views Frontal and Lat Reason: F U pneumonia; Clinical Question(s): CAP - FU CXR COMPARISON: 10/18 and 12/27/2023 FINDINGS: LINES AND TUBES: None. LUNGS AND PLEURA: Subtle oval opacity projects over the left lower lung between posterior left eighth and ninth ribs.Underlying nodule cannot be excluded. Right lung is clear. No pulmonary vascular congestion. No pleural effusion. No pneumothorax. HEART, MEDIASTINUM AND KAILYN: Heart is normal in size. Normal mediastinal and hilar contour. BONES AND SOFT TISSUES: No acute abnormality. IMPRESSION: Subtle oval opacity projects over the left lower lung between posterior left eighth and ninth ribs.Underlying lung mass cannot be excluded. CT scan is recommended. An actionable message (Yellow) has been communicated via the [email or web address] system on 07/30/2024 11:19 AM, Message ID [id number]. WSN: [id number] Ordering Physician: Meredith Branch Dictated By: Amrita Abdullahi MD, I Dictated Date/Time: 07/30/24 11:19 a Reviewed By: Amrita Abdullahi MD, I Signed By: Amrita Abdullahi MD, I Signed Date/Time: 07/30/24 11:19 am Transcribed By: ELVIRA Transcribed Date/Time: 07/30/24 11:15 am Social History Social History Type Response Tobacco Other: 1.5-2 ppd for 32 yrs. Sex Sex Representation Female (finding) Patient Care team information Care Team Personnel Name: Meredith Branch MD Position: S Physician - Primary Care Member Role: PCP Address: [address] [place] [address] Telecom: Care Team Related Persons Name: PAUL VIDALES Name: EZIO VIDALES Insurance Providers Guarantor name: ALEE CANTON Health Plan Information #: 1 Payer: MEDICARE PART B OUTPT Member Number: [id number] Policy Number: NA Group Number: NA Health Plan Information #: 2 Payer: [facility] Member Number: [id number] Policy Number: NA Group Number: [id number]
--- OUTSIDE RECORDS SUMMARY | 2024-09-04 15:20 | XMS_ITS | Continuity of Care Document ---
Author Organization [facility] Address [address] [place] [address]- Care Team Providers Care Television Parts Tester Name Role Phone Jose Carlos MAYES, Meredith Lindsey Primary Care Physic dariusz Encounter [facility] [id number] Date(s): 08/12/24 - 08/19/24 [facility] [address] [place], [place] [id number] Attending Physician: Tino Ashford MD Referring Physician: Quintin Pérez MD Encounter Type: Office Visit Allergies, Adverse Reactions, Alerts Substance Criticality Severity [...] vaccine, inactivated 1 06/13/11 Gi dede SARS-CoV-2(COVID-19)mRNA-LNP vac([id number]) 07/09/23 Recorded [id number] 12y+ bivalent booster vax 06/17/22 Recorded SARS-CoV-2 mRNA (awaarcu-nrxn-nrzil) vax 12/31/21 Recorded SARS-CoV-2 (COVID-19) mRNA BNT-162b2 [...] Confirmed Active Vitamin D deficiency Confirmed Active Vital Signs Most recent to oldest [Reference Range]: 1 Height 163 cm (08/12/24 11:15 AM) Weight 70.9 kg (08/12/24 11:15 AM) Oxygen Saturation [94-100 %] 97 % (08/12/24 11:15 AM) Pulse Rate [55-90 bpm] 110 bpm *H* (08/12/24 11:15 AM) Body Mass Index [18.5-24.99 kg/m2] 26.69 kg/m2 *H* (08/12/24 11:15 AM) Blood Pressure [90-138/55-84 mm Hg] 155/ 81mm Hg *H* (08/12/24 11:15 AM) Respiratory Rate [16-30 br/min] 18 br/mi n (08/12/24 11:15 AM) Mode of Delivery (Oxygen) Room air (08/12/24 11:15 AM) Blood pressure sites Arm, left (08/12/24 11:15 AM) Weight Obtained Via Standing scale (08/12/24 11:15 AM) Social History Social History Type Response Tobacco Other: 1.5-2 ppd for 32 yrs. Sex Sex Representation Female (finding) EKG study * Event Display: ECG 12-Lead Authored Date: Please click on pdf link to open report * Event Display: ECG 12-Lead Authored Date: Ventricular Rate: 85 BPM Atrial Rate: 85 BPM P-R Interval: 166 ms QRS Duration: 128 ms Q-T Interval: 388 ms QTC Calculation(Bazett): 461 ms P [place]: 60 degrees R [place]: 76 degrees T [place]: 51 degrees Poor data quality, interpretation may be adversely affected Normal sinus rhythm Right bundle branch block Abnormal ECG When compared with ECG of 02-JAN-2024 13:02, No significant change was found Confirmed by SHUN VINSON MD ([id number]) on 08/12/2024 3:34:52 PM [place]: SHUN VINSON MD Patient Care team information Care Team Personnel Name: Jose Carlos MAYES, Meredith Lindsey Position: S Physician - Primary Care Member Role: PCP Address: [address] [place] [address] Telecom: Care Team Related Persons Name: PAUL VIDALES Name: EZIO VIDALES Insurance Providers Guarantor name: ALEE VIDALES Health Plan Information #: 1 Payer: MEDICARE PART B OUTPT Member Number: [id number] Policy Number: NA Group Number: NA Health Plan Information #: 2 Payer: [facility] Member Number: [id number] Policy Number: NA Group Number: [id number]
--- OUTSIDE RECORDS SUMMARY | 2024-09-04 15:20 | XMS_ITS | Continuity of Care Document ---
Author Organization [facility] [place] [facility] Address [address] [facility] [place] [address]- Care Team Providers Care Forester Aide Name Role Phone Jose Carlos MAYES, Meredith Lindsey Primary Care Physic dariusz Encounter 08/09/24 - 08/16/24 [facility] [address] [facility], [address] [place] [address]- Attending Physician: Meredith Branch MD Admitting Physician: [...] vaccine, inactivated 1 06/13/11 Gi dede SARS-CoV-2(COVID-19)mRNA-LNP vac([id number]) 07/09/23 Recorded [id number] 12y+ bivalent booster vax 06/17/22 Recorded SARS-CoV-2 mRNA (tyqhehk-wdke-qaxse) vax 12/31/21 Recorded SARS-CoV-2 (COVID-19) mRNA BNT-162b2 [...] 05/13/24 9:05:00 AM EDT, EC Capsule, [id number], Partial fill upon patient request if the [...] Exam Date Time Procedure Performing Provider Status 08/09/24 3:[address] Chest W/ Contrast Marcella Osborne (Verified) Notes: (CT Chest W/ Contrast) Reason For Exam: Other: RESULT: CT Chest W/ Contrast CT Chest W/ Contrast INDICATION: L lower lobe opacity on CXR TECHNIQUE: Helical CT scan of the chest with IV contrast, formatted in 3 planes. 100 cc of Omnipaque 300 was administered intravenously. Weight-based protocol was performed using automatic exposure control. 8 COMPARISON: Chest radiograph 07/30/2024, CT chest 08/12/2020 FINDINGS: [employer] Mica view findings, lines and tubes: None. Trachea and airways: Patent without evidence of tracheal or endobronchial lesion. Lungs and pleura: No focal consolidation. No effusion or pneumothorax. Mediastinum and petr: No mass or hematoma. No mediastinal or hilar lymphadenopathy. No esophageal abnormality. Partially imaged thyroid is unremarkable. Heart: Heart is normal in size. No pericardial effusion. Moderate coronary artery calcification. Aorta: Mild vascular calcification but no aneurysm. Pulmonary arteries: Normal caliber. No evidence of pulmonary embolism on this study performed without angiographic technique. Chest wall soft tissues: No acute abnormality. Diaphragm: Intact. Upper abdomen: Hepatic steatosis. Mild splenomegaly measuring 13.4 cm. Partially visualized 5 mm left interpolar renal stone. No hydronephrosis. Bones: Mild degenerative changes of the spine. Mild deformity of the left anterior third, fourth, fifth, and left sixth ribs, suggestive healing rib fractures. Mild sclerosis within the left anteriorfifth rib. Mild deformity of the sternum, unchanged since 08/12/2020. IMPRESSION: 1. Mild deformity of the left anterior third, fourth, fifth, and left sixth ribs, suggestive of healing rib fractures. Recommend correlation with history of trauma. 2. No suspicious pulmonary nodules or mass. 3. Hepatic steatosis. I have personally reviewed the images and I agree with this report. WSN: [id number] Ordering Physician: Meredith Branch Dictated By: Alexis Montalvo MD Dictated Date/Time: 08/09/24 4:31 pm Reviewed By: Darling Prince MD Signed By: Darling Prince MD Signed Date/Time: 08/09/24 4:36 pm Transcribed By: ELVIRA Transcribed Date/Time: 08/09/24 4:10 pm * Exam Date Time Procedure Performing Provider Status 08/09/24 3:[address] Ext Upper W/O Contrast Right Fred t , Jimmy; Auth (Verified) Notes: (CT Ext Upper W/O Contrast Right) Reason For Exam: Pain RESULT: CT Ext Upper W/O Contrast Right CT Ext Upper W/O Contrast Right Reason: Pain; Clinical Question(s): R shoulder pain TECHNIQUE: Helical CT without contrast formatted in 3 planes. Weight-based protocol using automatictube modulation was used to optimize exposure parameters. COMPARISONS: 07/02/2024 FINDINGS: Mild acromioclavicular osteoarthritis No evidence of fracture. IMPRESSION: Mild acromioclavicular osteoarthritis. No evidence of fracture. Remainder of the shoulder exam is normal WSN: [id number] Ordering Physician: Meredith Branch Dictated By: Navdeep aSntos MD Dictated Date/Time: 08/09/24 3:51 pm Reviewed By: Navdeep Santos MD Signed By: Navdeep Santos MD Signed Date/Time: 08/09/24 3:51 pm Transcribed By: ELVIRA Transcribed Date/Time: 08/09/24 3:47 pm Social History Social History Type Response Tobacco Other: 1.5-2 ppd for 33 yrs. Sex Sex Representation Female (finding) Patient Care team information Care Team Personnel Name: Meredith Branch MD Position: S Physician - Primary Care Member Role: PCP Address: [address] [place] [address] Telecom: Care Team Related Persons Name: PAUL VIDALES Name: EZIO VIDALES Insurance Providers Guarantor name: ALEE MALCOLMMADELEINE Health Plan Information #: 1 Payer: MEDICARE PART B OUTPT Member Number: [id number] Policy Number: NA Group Number: NA Health Plan Information #: 2 Payer: [facility] Member Number: [id number] Policy Number: NA Group Number: [id number]
[2024-09-09 12:29] VITALS: BP 126/67; PULSE 89; RESP 20; O2SAT 98; BMI 27.0
--- NOTE | 2024-09-09 12:41 | HO.ANESPROP2 ---
Documented by User: Anni Hargrove NP 09/09/24 12:55 HPI - Anesthesia Eval Consult details Narrative: 68yo F for Left Knee Replacement Total, 10/07/2023 Medically optimized per [facility] s/p Right TKA at [facility] with spinal/nerve block, no issues No recent illness (pneumonia 06/2024, resolved with abx) No CP/SOB with ADLs / housework GERD: ppi BID, recent monometry testing but results pending Anxious/White coat syndrome PMFSH Active Problems Active Problems: All Active Problems Arthritis of right hip (Acute) Arthritis of left hip (Acute) Arthritis of left knee (Acute) Right knee pain (Acute) Past Medical History Medical History Anxiety Pneumonia Fracture, ribs White coat syndrome without diagnosis of hypertension Vertebral compression fracture Osteoporosis Psoriasis Osteoarthritis Ocular migraine Hypertriglyceridemia Hypothyroid Dysphagia GERD (gastroesophageal reflux disease) Family History Family History Mother Lung cancer Liver cancer Sister Hypertension Sister Multiple sclerosis Family history of problems with anesthesia: No Surgical History Surgical History Hx of bilateral cataract extraction H/O colonoscopy Hx of arthroscopy of left knee History of esophagogastroduodenoscopy (EGD) History of tonsillectomy and adenoidectomy History of History of total right knee replacement (TKR) History of Problems with Anesthesia: Yes Social History Social History Household Members: Spouse Housing: House Are you a primary hospice care consultant to a significant other at home: No Do you presently have visiting nurse or other home services: No Alcohol intake: current Alcohol intake frequency: holidays/special occasions only Patient Tobacco Use Status: Former Tobacco user Tobacco use type: Cigarette Years Smoked: 30 Use of substances other than those prescribed or required for medical reasons: No Have you been hit, kicked, punched, or otherwise hurt by someone within the past year? If so, by whom?: No Spiritual Healthcare Practices: none Orthodox Healthcare Practices: none Cultural Healthcare Practices: none Are you DNR?: Yes Advance Directives Information Provided: Yes (as above noted) Advance Directives on File: No Recently lost weight without trying: No Eating poorly because of decreased appetite: No Nutrition Risks: No Nutritional Risk FDLMP: n/a : No Poor oral hygiene: No Current occupational status: employed and retired Current occupation: [employer] Meds Allergies Allergy/AdvReac Type Severity Reaction Status Date / Time adhesive tape Allergy Intermediate Rash (from Verified 10/07/24 08:03 band aids/medicine patches) Sulfa (Sulfonamide Allergy Intermediate Vomiting Verified 10/07/24 08:03 Antibiotics) epinephrine Allergy Mild Shakiness Verified 10/07/24 08:03 varenicline [From Chantix] AdvReac Intermediate emotional Verified 10/07/24 08:03 discord Home Medications ?Medication ?Instructions ?Recorded ?Confirmed ?Last Taken ?Type ustekinumab 45 mg/0.5 mL 45 mg subcut Q12W 05/30/23 10/03/24 Unknown History subcutaneous solution (Stelara) celecoxib 200 mg capsule 200 mg PO BEDTIME PRN Pain 09/13/23 10/03/24 Unknown History omeprazole 40 mg capsule,delayed 40 mg PO BID 09/13/23 10/03/24 10/07/24 History release acidophilus 100 million 1 cap PO QAM 09/09/24 10/03/24 Unknown History cell-pectin, citrus 10 mg capsule multivitamin 1 tab PO QAM 09/09/24 10/03/24 Unknown History zoledronic acid 5 mg/100 mL in 1 ea IV [id number] 09/09/24 10/03/24 Unknown History mannitol 5 %-water intravenous piggybck (Reclast) Exam Height,Weight and Vital Signs: Height 5 ft 4.17 in Weight 71.668 kg Last Vital Signs Pulse 89 09/09/24 12:29 Resp 20 09/09/24 12:29 BP 126/67 09/09/24 12:29 Pulse Ox 98 09/09/24 12:29 O2 Del Method Room Air 09/09/24 12:29 Pertinent Lab Results Pertinent Lab Results: CBC and BMP 08/2024 from outside facility WNL Narrative Narrative: EKG 07/2024 [id number] Ventricular Rate: 85 ?BPM Atrial Rate: 85 ?BPM P-R Interval: 166 ?ms QRS Duration: 128 ?ms Q-T Interval: 388 ?ms QTC Calculation(Bazett): 461 ?ms P [place]: 60 ?degrees R [place]: 76 ?degrees T [place]: 51 ?degrees Poor data quality, interpretation may be adversely affected Normal sinus rhythm Right bundle branch block Abnormal ECG When compared with ECG of 02-JAN-2024 13:02, No significant change was found Airway Mallampati Class: III TM Dist: >3cm Neck ROM: Full Loose/Missing/Broken Teeth: Yes (molars missing) Heart: RRR Lungs: CTAB Assessment and Plan Assessment Anesthesia Assessment: Anesthesia Plan Discussed and PAT Visit Final Anesthetic Review Family History of Problems with Anesthesia: No History of Problems with Anesthesia: Yes Documented by User: Negar Bernal MD 10/07/24 09:31 [facility] Past Medical History Medical History Anxiety Pneumonia Fracture, ribs White coat syndrome without diagnosis of hypertension Vertebral compression fracture Osteoporosis Psoriasis Osteoarthritis Ocular migraine Hypertriglyceridemia Hypothyroid Dysphagia GERD (gastroesophageal reflux disease) Family History Family History Mother Lung cancer Liver cancer Sister Hypertension Sister Multiple sclerosis Surgical History Surgical History Hx of bilateral cataract extraction H/O colonoscopy Hx of arthroscopy of left knee History of esophagogastroduodenoscopy (EGD) History of tonsillectomy and adenoidectomy History of History of total right knee replacement (TKR) Social History Social History Household Members: Spouse Housing: House Are you a primary hospice care consultant to a significant other at home: No Do you presently have visiting nurse or other home services: No Alcohol intake: current Alcohol intake frequency: holidays/special occasions only Patient Tobacco Use Status: Former Tobacco user Tobacco use type: Cigarette Years Smoked: 30 Use of substances other than those prescribed or required for medical reasons: No Have you been hit, kicked, punched, or otherwise hurt by someone within the past year? If so, by whom?: No Spiritual Healthcare Practices: none Orthodox Healthcare Practices: none Cultural Healthcare Practices: none Are you DNR?: Yes Advance Directives Information Provided: Yes (as above noted) Advance Directives on File: No Recently lost weight without trying: No Eating poorly because of decreased appetite: No Nutrition Risks: No Nutritional Risk FDLMP: n/a : No Poor oral hygiene: No Current occupational status: employed and retired Current occupation: [employer] Meds Allergies Allergy/AdvReac Type Severity Reaction Status Date / Time adhesive tape Allergy Intermediate Rash (from Verified 10/07/24 08:03 band aids/medicine patches) Sulfa (Sulfonamide Allergy Intermediate Vomiting Verified 10/07/24 08:03 Antibiotics) epinephrine Allergy Mild Shakiness Verified 10/07/24 08:03 varenicline [From Chantix] AdvReac Intermediate emotional Verified 10/07/24 08:03 discord Home Medications ?Medication ?Instructions ?Recorded ?Confirmed ?Last Taken ?Type ustekinumab 45 mg/0.5 mL 45 mg subcut Q12W 05/30/23 10/03/24 Unknown History subcutaneous solution (Stelara) celecoxib 200 mg capsule 200 mg PO BEDTIME PRN Pain 09/13/23 10/03/24 Unknown History omeprazole 40 mg capsule,delayed 40 mg PO BID 09/13/23 10/03/24 10/07/24 History release acidophilus 100 million 1 cap PO QAM 09/09/24 10/03/24 Unknown History cell-pectin, citrus 10 mg capsule multivitamin 1 tab PO QAM 09/09/24 10/03/24 Unknown History zoledronic acid 5 mg/100 mL in 1 ea IV [id number] 09/09/24 10/03/24 Unknown History mannitol 5 %-water intravenous piggybck (Reclast) Assessment and Plan Final Anesthetic Review NPO: Yes ASA Class: III Final Preanesthetic Review: No Changes in Pt Med Stat, Meds/Allgs Chart Reviewed, Consent Obtained/Reviewed and Anes Risks/Benef Reviewed Patient Risk: Intermediate Procedure Risk: Intermediate Anesthetic Plan Anesthetic Plan: MAC:, Neuraxial Block: and Regional Block Disposition: Standard PACU
[2024-09-09 14:27] LABS: MRSA Nasal PCR NEGATIVE (Negative); SA Nasal PCR NEGATIVE (Negative)
[2024-10-07] VITALS (13 sets, daily range): BP systolic 112–136; BP diastolic 58–75; PULSE 55–98; RESP 16–18; TEMP 36.1–37.5; O2SAT 94–99; BMI 27.2
--- OUTSIDE RECORDS SUMMARY | 2024-10-07 05:55 | XMS_ITS | Continuity of Care Document ---
Author Organization [facility] Address [address] [place] [address]- Care Team Providers Care Batch Operator Name Role Phone Jose Carlos MAYES, Meredith Lindsey Primary Care Physic dariusz Encounter [facility] Date(s): 09/04/24 - 10/04/24 [facility] [address] [place] [address]- Encounter Diagnosis Leukocytosis(Discharge Diagnosis) - 01/22/21 Attending Physician: Alonso Melton Encounter Type: Triage Allergies, Adverse Reactions, Alerts [...] vaccine, inactivated 1 06/13/11 Gi dede SARS-CoV-2(COVID-19)mRNA-LNP vac([id number]) 07/09/23 Recorded [id number] 12y+ bivalent booster vax 06/17/22 Recorded SARS-CoV-2 mRNA ([id number]) vax 12/31/21 Recorded SARS-CoV-2 (COVID-19) mRNA BNT-162b2 [...] 05/13/24 9:05:00 AM EDT, [facility], [id number], Partial fill upon patient request if the [...] Diagnosis Diagnosis Type Effective Dates Health Status inical Service Informant Leukocytosis Discharge Diagnosis 01/22/21 Social History Social History Type Response Tobacco Other: 1.5-2 ppd for 32 yrs. Sex Sex Representation Female (finding) EKG study * Event Display: EKG Authored Date: Laboratory * Event Display: Non-BH Pathology Lab Results Authored Date: * Event Display: Pathology Lab Results Authored Date: * Event Display: Pathology Lab Results Authored Date: * Event Display: Non BH Lab Results Authored Date: * Event Display: Non BH Lab Results Authored Date: * Event Display: Non BH Lab Results Authored Date: Radiology * Event Display: X-Ray Hand/Wrist, Non- BH Authored Date: * Event Display: X-Ray Knee, Non- BH Authored Date: * Event Display: CT Scan Head, Non- BH Authored Date: * Event Display: X-Ray Knee, Non- BH Authored Date: * Event Display: X-Ray Spine, Non- BH Authored Date: * Elba Levy MD: SIGN Event Display: Radiology Result Scanned Authored Date: * Willa Alvarez: PERFORM Event Display: Radiology Results Scanned Authored Date: * Willa Alvarez: PERFORM Event Display: Radiology Results Scanned Authored Date: * Event Display: IR Special Procedures, Non-BH Authored Date: XR Knee Views * Event Display: X-Ray Knee Authored Date: MG Breast Views * Event Display: MM Mammogram Authored Date: * Event Display: MM Mammogram Authored Date: Patient Care team information Care Team Personnel Name: Jose Carlos MAYES, Meredith Lindsey Position: [facility] Physician - Primary Care Member Role: PCP Address: [address] [place] [address] Telecom: Care Team Related Persons Name: PAUL VIDALES Name: EZIO VIDALES Insurance Providers Guarantor name: ALEE MALCOLMMADELEINE Health Plan Information #: 1 Payer: MEDICARE PART B OUTPT Member Number: NA Policy Number: NA Group Number: NA Health Plan Information #: [address] [facility] Member Number: NA Policy Number: NA Group Number: NA
--- OUTSIDE RECORDS SUMMARY | 2024-10-07 05:56 | XMS_ITS | Data Portability ---
Author Organization [facility], [facility] Address [address] [place] [address] Care Team Providers Care Outside Rigger Name Role Phone DARLING ROCHA Primary Care Provider [phone] EZIO LONDON Batch Trucker CHIRAG REECE Stapler Coil Unit MARCIO LOZADA Wood Gouger Assessment Encounter Date Assessment Date Assessment LastModified [...] our office for worsening or urgent symptoms. [email or web address] Not available 05/04/2020 14:49:40 Plan of Treatment Reminders Order Date Submit Date Provider Last Modified By Organization Details Last Modified Time Details Appointments None recorded. Lab CBC 2019 020 [facility], [address] [place] [address], [address], 0 14:53:37 BMP, serum or plasma 2019 020 [facility], [address] [place] [address], [address], 0 12:02:28 vitamin D, 25-hydrox y, total, serum 2019 020 [facility], [address] [place] [address], [address], 0 12:20:02 MAURICIO (antinucl ear antibodie s) screen, ifa, serum 2019 020 [facility], [address] [place], [address], 0 15:32:59 Referral None recorded. Procedures None recorded. Surgeries None recorded. Imaging None recorded. Medication Orders clotrimaz ole-betam ethasone 1 %-0.05 % topical cream 2019 020 INTERFACE [id number], [address] [place], [address], 0 14:22:06 Patient TargetsNo targets recorded. Patient Instructions Encounter Date Encounter Id Patient Instructions Last Modified By Organization Details Last Modified Time 02/18/2020 [id number] After a discussi on of treatment options, which included consideration of best practices and patient preferences, the following treatment plan and objectives were adopted: as above. [email or web address] Not available 02/18/2020 14:08:12 05/04/2020 [id number] After a discussi on of treatment and [...] / or use Purell or other hand weights and measures sealer -Do not touch your face, eyes, nose, [...] concerns. [email or web address] Not available 05/04/2020 14:54:46 05/08/2020 [id number] Enc continue social distancing, frequent handwashing, cover [...] WBC 9.47 K/??L 3.98-1 0.04 Not Available [address], [address], 03/24/2020 14:53:37 03/24/2003/24/2020 CBC RBC 4.62 M/??L 3.93-5 .22 Not Available [address], [address], 03/24/2020 14:53:37 03/24/2003/24/2020 CBC HGB 13.9 g/dL 11.2-1 5.7 Not Available [address], [address], 03/24/2020 14:53:37 03/24/20 20 03/24/2020 CBC HCT 42.8 % 34.1-4 4.9 Not Available [address], [address], 03/24/2020 14:53:37 03/24/2003/24/2020 CBC MCV 92.6 fL 79.4-9 4.8 Not Available [address], [address], 03/24/2020 14:53:37 03/24/2003/24/2020 CBC MCH 30.1 pg 25.6-3 2.2 Not Available [address], [address], 03/24/2020 14:53:37 03/24/20 20 03/24/2020 CBC MCHC 32.5 g/dL 32.2-3 5.5 Not Available [address], [address], 03/24/2020 14:53:37 03/24/20 20 03/24/2020 CBC plt 331 K/??L 182-36 9 Not Available [address], [address], 03/24/2020 14:53:37 03/24/20 20 03/24/2020 CBC MPV 10.4 fL 9.4-12 .3 Not Available [address], [address], 03/24/2020 14:53:37 03/24/20 20 03/24/2020 CBC neut% 61.9 % 34.0-7 1.1 Not Available [address], [address], 03/24/2020 14:53:37 03/24/20 20 03/24/2020 CBC neut# 5.86 1.56-6 .13 Not Available [address], [address], 03/24/2020 14:53:37 03/24/20 20 03/24/2020 CBC lymph % 25.2 % 19.3-5 1.7 Not Available [address], [address], 03/24/2020 14:53:37 03/24/20 20 03/24/2020 CBC lymph # 2.39 K/??L 1.18-3 .74 Not Available [address], [address], 03/24/2020 14:53:37 03/24/20 20 03/24/2020 CBC mono% 7.6 % 4.7-12 .5 Not Available [address], [address], 03/24/2020 14:53:37 03/24/20 20 03/24/2020 CBC mono# 0.72 0.24-0 .56 high Not Available [address], [address], 03/24/2020 14:53:37 03/24/20 20 03/24/2020 CBC eo% 3.7 % 0.7-5. 8 Not Available [address], [address], 03/24/2020 14:53:37 03/24/20 20 03/24/2020 CBC eo# 0.35 0.04-0 .36 Not Available [address], [address], 03/24/2020 14:53:37 03/24/20 20 03/24/2020 CBC baso% 1.0 % 0.1-1. 2 Not Available [address], [address], 03/24/2020 14:53:37 03/24/20 20 03/24/2020 CBC baso# 0.09 0.00-0 .08 high Not Available [address], [address], 03/24/2020 14:53:37 03/24/20 20 03/24/2020 CBC RDW-CV 13.2 % 11.7-1 4.4 Not Available [address], [address], 03/24/2020 14:53:37 03/24/20 20 03/24/2020 CBC Ig% 0.600 % 0.000- 1.500 Ig % >0.5 Indic ates possi ble Left Shift Not Available [address], [address], 03/24/2020 14:53:37 03/24/20 20 03/24/2020 CBC Ig# 0.060 0.000- 0.093 Not Available [address], [address], 03/24/2020 14:53:37 03/24/20 20 03/24/2020 CBC NRBC% 0.0 % 0.0-0. 2 Not Available [address], [address], 03/24/2020 14:53:37 03/24/20 20 03/24/2020 CBC NRBC# 0.000 0.000- 0.012 Not Available [address], [address], 03/24/2020 14:53:37 03/24/20 20 03/25/2020 BMP, serum or plasm a glucose 145 mg/dL 70-100 high LIPG= Speci men Marke dly Lipem ic. Chem Resul ts may be effec deanna. Not Available [address], [address], 03/25/2020 12:02:28 03/24/20 20 03/25/2020 BMP, serum or plasm a BUN 10 mg/dL 7-18 Not Available [address], [address], 03/25/2020 12:02:28 03/24/2003/25/2020 BMP, serum or plasm a creatinine 0.8 mg/dL 0.8-1. 3 Not Available [address], [address], 03/25/2020 12:02:28 03/24/20 20 03/25/2020 BMP, serum or plasm a B/C 12.5 ratio Not Available [address], [address], 03/25/2020 12:02:28 03/24/20 20 03/25/2020 BMP, serum or plasm a GFR -non 80.6 mL/mi n Recom tanja d GFR by the Natio nal Kidne y Found ation >60 mL/mi n/1.7 3m2 - Na l <60 mL/mi n/1.7 3m2 - Chron ic Kidne y Disea se <15 mL/mi n/1.7 3m2 - Kidne y Failu re Not Available [address], [address], 03/25/2020 12:02:28 03/24/20 20 03/25/2020 BMP, serum or plasm a GFR - if 92.7 mL/mi n For Afric an Ameri can patie nts: Resul ts Multi plied by 1.21 Not Available [address], [address], 03/25/2020 12:02:28 03/24/20 20 03/25/2020 BMP, serum or plasm a sodium 144 mmol/ L 136-14 5 Not Available [address], [address], 03/25/2020 12:02:28 03/24/2003/25/2020 BMP, serum or plasm a potassium 3.7 mmol/ L 3.5-5. 1 Not Available [address], [address], 03/25/2020 12:02:28 03/24/2003/25/2020 BMP, serum or plasm a chloride 107 mmol/ L 96-107 Not Available [address], [address], 03/25/2020 12:02:28 03/24/2003/25/2020 BMP, serum or plasm a anion gap 11.8 5.0-15 .0 Not Available [address], [address], 03/25/2020 12:02:28 03/24/2003/25/2020 BMP, serum or plasm a CO2 25 mmol/ L 21-32 Not Available [address], [address], 03/25/2020 12:02:28 03/24/20 20 03/25/2020 BMP, serum or plasm a calcium 8.9 mg/dL 8.5-10 .3 Not Available [address], [address], 03/25/2020 12:02:28 03/24/2003/25/2020 TSH, serum or plasm a TSH 0.82 uIU/m L 0.50-6 .00 The Ameri can Colle ge of Endoc rinol ogy and Ameri can Thyro id Assoc iatio n recom mend goal TSH value s betwe en 0.4-4 .0 mIU/m L. Not Available [address], [address], 03/25/2020 12:20:01 03/24/20 20 03/25/2020 vitam in [...] er than 30 ng/mL . Not Available [address], [address], 03/25/2020 12:20:02 03/24/20 20 03/25/2020 AST/S GOT (aspa rtate amino trans feras e), serum or plasm a AST 25 U/L 0-37 LIPG= Speci dora Perez dly Lipem ic. Chem Resul ts may be effec deanna. Not Available [address], [address], 03/25/2020 12:46:25 03/24/20 20 03/25/2020 ALT (sara ine amino trans feras e), serum or plasm a ALT 49 U/L 6-63 Not Available [address], [address], 03/25/2020 12:46:26 03/24/20 20 03/25/2020 MAURICIO (anti [...] Patte rns (http s://d oi.or g/10. 1515/ [facility]2017- 0052) For addit ional infor li yanes e refer to http: //[facility] adalberto santamaria.Que stDia gnost ics.c om/fa q/FAQ 177 (This link is being provi ded for infor rachna kaplan/ educloretta marie purpo ses only. ) Not Available [facility] [address] [place] [address], [place], [address], 03/25/2020 15:32:58 03/24/2003/25/2020 HbA1c (hemo globi n A1c), blood hemoglobin A1C 5.9 % 4.8-6. 0 Goal: <7% in Patie nts with Diabe barbie Not Available [address], [address], 03/25/2020 15:42:28 03/24/2003/25/2020 HbA1c (hemo globi n A1c), blood estimated average glucose 122.6 mg/dL Not Available [address], [address], 03/25/2020 15:42:28 Result Notes None recorded. Problems Name Problem SNOMED Code Status Onset Date Resolution Date Notes Provider Name and Address Organization Details Recorded Time Hypothyro idism 59706732 [place], [address], [facility] 6 10:34:37 Psoriasis 2333673 [place], [address], [facility] 6 17:39:38 Osteoarth ritis 958056838 [place], [address], [facility] 6 17:21:01 Vitamin D deficienc y 72921252 Active 2015 [place], [address], [facility] 6 12:18:54 Cobalamin deficienc y 542499610 Active 2015 [place], [address], [facility] 6 12:19:24 Ophthalmi c migraine 92527382 Active 2017 MD [place], [address], [facility] 8 12:49:07 Obesity 781395280 Active 2017 [place], [address], [facility] 8 10:43:25 Adenomato us polyp of colon 923178518 Active 2018 [place], [address], [facility] 9 12:38:22 Cyst of kidney 609108123 Active 2019 repeat US 11/2020 to assure no changes [place], [address], [facility] 0 08:56:05 Complicat ion of medical care 36594072 Completed 200708/14/2013 Darling Rocha MD [address] [place] [address] [place], [address], [facility] 6 17:21:01 Problem Notes None recorded. Procedures Surgical History Date Name Laterality Status Provider Name and Address Organization Details Recorded Time 05/08/20 20 Cerumen Removal - Irrigation/Lava ge completed Agatha Boles NP [address] [place] [address], [address], [facility] 05/08/2020 13:33:51 10/10/19 20 Cerumen Removal - Irrigation/Lava ge completed Nori Meadows RN [facility] 10/10/2019 14:57:52 05/04/20 19 POC Urinalysis Testing completed Bette Pardo MA [facility] 05/04/2019 11:23:15 11/21/19 19 POC Urinalysis Testing completed Swati Patricia MA [facility] 11/21/2018 11:38:48 08/28/20 18 Cerumen Removal - Irrigation/Lava ge completed Rita Ramos [facility] 08/28/2018 11:46:20 03/16/20 18 Cerumen Removal - Irrigation/Lava ge completed Yadira Finley MD [address] [place] [address], [address], [facility] 03/16/2018 15:02:34 01/06/20 18 [address]: Therapeutic Exercise completed Deirdre Trujillo, PT [address] [place], [address], [facility] 01/05/2018 13:09:35 01/06/20 18 10008: Manual Therapy completed Deirdre Trujillo, PT [address] [place], [address], [facility] 01/05/2018 13:09:38 01/06/20 18 Treatment and Advice completed Deirdre Trujillo, PT [address] [place], [address], [facility] 01/05/2018 12:41:49 12/27/19 18 15587: Therapeutic Exercise completed Deirdre Trujillo, PT [address] [place], [address], [facility] 12/26/2017 13:30:27 12/27/19 18 Treatment and Advice completed Deirdre Trujillo, PT [address] [place], [address], [facility] 12/26/2017 13:27:24 12/20/19 18 [address]49: Therapeutic Exercise completed Deirdre Trujillo, PT [address] [place], [address], [facility] 12/19/2017 15:39:43 12/20/19 18 Treatment and Advice completed Deirdre Trujillo, PT [address] [place], [address], [facility] 12/19/2017 14:56:59 12/13/19 18 Physical Activity Counselling completed Deirdre Trujillo, PT [address] [place], [address], [facility] 12/12/2017 15:27:42 12/13/19 18 [address]62: PT Eval, Moderate Complexity completed Deirdre Trujillo, PT [address] [place], [address], [facility] 12/12/2017 15:27:38 12/13/19 18 Treatment and Advice completed Deirdre Trujillo, PT [address] [place], [address], [facility] 12/12/2017 14:31:02 09/23/20 16 Cerumen Removal - Irrigation/Lava ge completed Isabella Pulido LPN [facility] 09/23/2016 11:49:35 02/02/20 16 POC Urinalysis Testing completed Jory Vallecillo LPN [facility] 02/02/2016 16:08:03 Imaging Results None recorded. Procedure Notes None recorded. Medical Equipment None Reported. Allergies Allergen ID Allergen Name Allergen Category Reaction Reaction Severity Criticality Documentation Date Start Date Code Code System Note Provider Name and Address Organization Details Recorded Time 497357 meloxicam medicatio n Not available Not available Not available 04/09/2015 24947 RxNorm Too drows y. Milagro Chris, TOMAS [address] [facility], [place], [address] , [facility] 5 12:03:16 723468 epinephri ne medicatio n Not available Not available Not available 07/22/2015 3992 RxNorm pt has had & has been o.k. but had & got jitte ry & rash the next day. Patricia Awad [facility] 6 11:50:09 895756 Chantix medicatio n Not available Not available Not available 07/22/2015 57377 [address] Juan F Nevarez [facility] 5 12:17:50 781542 doxycycli ne Not available nausea Not available Not available 09/19/2018 3640 RxNorm Christie Moser [facility] 8 15:44:39 Medications Name Sig Start Date [...] Not Available Not Available No t Available Inland Thyroid 15 mg tablet TAKE 4 TABLETS [...] Updated DateTime 02/18/2020 162.56 cm 32.6 kg/m2 96932.55 g Darling Rocha MD [address] [place] [address], [address], [facility] 02/18/2020 14:08:40 Date Recorded Body height Body mass index (BMI) Body weight Body temperature Heart rate Systolic blood pressure Diastolic blood pressure Provider Name and Address Organization Details Last Updated DateTime 0 162.56 cm 33.7 kg/m2 97802.5 g 97.8 [degF] 68 /min 136 mm[Hg] 84 mm[Hg] Juan F Nevarez MA [facility] 0 12:21:28 Social History Question Answer Notes LastModified by Organization Details LastModified Time Tobacco Smoking Status Former Smoker quit 8yrs ago-04/09/15, smoked for 30 yrs, smoked 1-2 PPD RODRIGO Singer, [facility] 04/09/2015 11:51:45 What Is Your Level [...] not available 10/23/2015 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 No Information not available 04/09/2015 Does The Patient Have Difficulty Reading Guyanese? No Information not available 04/09/2015 Patient Has [...] ession Medical History Condition Response Osteoarthritis Y Hypothyroid Y Kidney Stones Y Depression Y psoriasis Y Chronic Back Pain Y Gynecological HistoryNo gynecological history recorded. Obstetrics History GPAL:G 0 P 0 0 0 0 Immunizations Vaccine Type Date Status Note Provider Nam e and Address Organization Details Recorded Time Influenza, split virus, quadrivalent, PF 8 completed Not Available [facility] 10/12/2019 02:34:17 Tdap 2 completed RODRIGO Steven, [facility] 05/12/2015 08:52:35 influenza, unspecified formulation 3 completed Juan F Nevarez MA [facility] 07/22/2015 12:16:56 Td(adult) unspecified formulation 7 completed Juan F Nevarez MA [facility] 07/22/2015 12:16:56 Influenza, split virus, quadrivalent, preservative 6 completed FERNANDO Kebede [facility] 07/15/2016 17:00:35 Influenza, split virus, quadrivalent, PF 9 completed Not Available [facility] 10/12/2019 02:29:22 pneumococcal polysaccharide PPV23 0 completed Not Available [facility] 10/12/2019 02:40:15 influenza, unspecified formulation 8 completed Christie Moser [facility], [facility] 09/19/2018 15:50:42 Td (adult), 2 Lf tetanus toxoid, preservative free, adsorbed 0 completed Nori Meadows RN null, [facility] 05/08/2020 15:36:28 Influenza, high-dose, quadrivalent, PF 0 completed OC MontillaRMA [facility] 07/11/2020 11:24:54 Past Encounters Encounter ID Performer Location Encounter Start Date Encounter Closed Date Diagnosis/Indication Diagnosis SNOMED-CT Code Diagnosis ICD10 Code Diagnosis Note [id number] [facility] [address] [place] [address] 02/12/2008 15:45:42 10/15/2008 02:02:29 [id number] [facility] [address] [place] [address] 04/28/2008 15:25:26 10/15/2008 02:02:29 [id number] Milagro Chris NP FP, [facility], [address] [place] [address] 04/09/2015 11:31:06 04/09/2015 12:32:46 Psoriasis 4441447 New pt establishi ng with the practice. [...] her dose if she is ill. Hypothyroidism 61715319 [id number] Sam MI, [facility], [address] [place] [address] 05/01/2015 16:23:27 05/01/2015 17:21:30 Psoriasis 6124219 Cutaneous psoriasis, previously followed by Dermatolog y [...] MTX reviewed. Check CBC and CMP. Hypothyroidism 71364516 Was told TSH was normal in December-January 2015 during her physical. Denies any previous intoleranc e to Levothyrox ine. Records requested. [id number] Charlene Gomes RN , [facility], [address] [place] [address] 10/23/2015 11:30:25 10/23/2015 12:32:36 Adult health examination 381148319 Z00.00 see Risk Assessment and Lifestyle Change Counseling section above Hypothyroidism 79307885 E03.9 TSh today has been stable Psoriasis 1493887 L40.9 methotrexa te with Derm improving Counseling 266952794 Z71 .9 see HPI Obesity 002619105 E66.9 pt with active weight loss plan three serge follow up to assess and monitor could consider nutrition referral at that time if needed glucose has been high, mildly, on CMP screening at derm; will get A1C also lipid panel Osteoarthritis 115141499 M19.90 [facility], uses 1/2 dose Screening for malignant neoplasm of cervix 026042965 Z12.4 [id number] Milagro Taylor , [facility], [address] [place] [address] 12/04/2015 14:43:15 12/04/2015 15:35:49 Acute upper respiratory infection 74156128 J06.9 [id number] Darling Rocha MD , [facility], [address] [place] [address] 01/15/2016 16:57:34 01/15/2016 17:36:05 Hypothyroidism 76256232 E03.9 TSH in range wants to try to levothyrox ine instead of Inland will convert dosing has been stable Psoriasis 5907810 L40.9 methotrexa te with Derm improving needs labs Obesity 287382981 E66.9 pt with active weight loss plan three serge follow up to assess and monitor could consider nutrition referral at that time if needed glucose has been high, mildly, on CMP screening at derm; will get A1C also lipid panel Injury of knee 151319254 S80.921A recurrent right knee injury going to ortho Monday, known to them [id number] LAWRENCE Henning , [facility], [address] [place] [address] 02/02/2016 15:28:37 02/02/2016 16:26:30 Screening for disorder 301693585 Z11.59 Urinary tr act infectious disease 25624718 N39.0 No sign of infection on urine dipstick. Push fluids f/u if no improvemen t in 72 hours or for fever or back pain. [id number] Milagro Chris NP , [facility], [address] [place] [address] 05/19/2016 08:38:33 05/19/2016 09:25:42 Screening for malignant neoplasm of respiratory tract 418668259 Z12.2 Pt wishes to have low dose CT scan screening for lung cancer as she has > 30 pack years of smoking. Understand s she will be exposed to radiation, but at lower doses. Myofascial pain 83541528 9 M79.1 After spending almost 30 minutes discussing her respirator y issues and shingles vaccine, pt discussed the real reason she was here was intermitte nt unrelentin g myofacial pain and spasm in different muscle groups. Denies new meds or changes. Will check labs. Dyspnea 996934733 R06.00 Mild in mornings since spring on days with humid weather. Will check spirometry with nursing staff on another day to r/o copd as pt with > 40 year pack history [id number] LAWRENCE Wright-FELECIA , [facility], [address] [place] [address] 05/28/2016 10:03:05 05/28/2016 14:31:40 Spasm of back muscles 804042441 M62.830 left scapular spasm, in setting of intermitte nt peripheral spasm, with no associated weakness, treat shoulder pain as written below, no concern for overuse or abuse of meds,coord inate with rheum re systemic symtpoms. Psoriasis 4288025 L40.9 managed by rheum in [facility] [id number] , [facility], [address] [place] [address] 06/29/2016 09:33:46 06/29/2016 10:25:37 Active or passive immunization 080326743 Z23 Pt going to wait because she is on methotrexa te and will check with Derm first Spasm 01684534 R25.2 Pt with severe muscle spasm and pain, worse in arms and legs. Feels very washed out. Fingers clench. Degenerati ve joint disease involving multiple joints M15.9 Multiple joint pain. Also has psoriasis and is on methotrexa te. Having alot of joint pain and muscle pain [id number] Yuriy Reece MD Rheumatol [facility], [facility] [address] [place] [address] 07/01/2016 08:52:26 07/04/2016 07:34:12 Spasm 26696938 R25.2 Chief complaint is prominent muscular spasms. [...] at low dose. Osteoarthr itis of knee 271303868 M17.0 Symptomati c. Gets steroid injections (Dr Mendieta). Osteoarthritis 633906100 M19.90 Degenerati ve arthritis of both knees, but also osteoarthr itic changes at several locations. Other than the knees, none of this is particular ly symptomati c at present. Psoriasis 0371320 L40.9 Followed by dermatolog y. On low-dose methotrexa te. No sign of psoriatic arthritis. Psoriasis, well controlled [id number] Darling Rocha MD , [facility], [address] [place] [address] 07/15/2016 16:48:21 07/15/2016 17:30:01 Osteoarthritis 637756729 M19.90 followed [facility], uses 1/2 dose Hypothyroidism 09602201 E03.9 TSH was in rangeconti nue samedoesn' t seem a factor in her pain Psoriasis 0708214 L40.9 methotrexa te with Derm improvings eeing them in coming monthsmedi cation makes her very tired Spasm 07336957 R25.2 unclear etiologydo es get some relief [...] her workshe will consider miko chi in [facility] ndiscussed anti-infla mmatory diet Neuralgia 58701129 M79.2 mostly UEpt concerned carpel tunnel, has upper arm twinges as well, mostly at night, sides rotateno focal sxawaiting neurology evaluation , apt in September, on waiting listdoesn' t want new medication very stressed, aware of stress componenen tsupportiv e reassuranc e today Depressive disorder 5875 4871 F32.9 pt presents with sx of major depression related to physical healthdisc ussion today tx may help overall healthwant s therapydoe sn't want medication offered referrals to therapy here or acute visit with Dr Rios will talk with her friend who is a therapist to get an idea of who to seeno SI or self harm [id number] Darling Rocha MD , [facility], [address] [place] [address] 08/05/2016 15:17:27 08/05/2016 16:07:40 Hypothyroidism 80199999 E03.9 stable Osteoarthritis 848550170 M19.90 ongoing pain, saw Dr Mendieta, marcianoeart ened with visitother pain issues precluding considerat ion of TKR nowgot BL joint injections focussed on other pains Spasm 09545431 R25.2 ongoing, some relief, feels achy all the timesaw rheumuncle ar if could be fibromyalg ia at this point with ongoing vague and traveling constant achesI wonder if depression contributi ng Neuralgia 85247808 M79.2 neurology 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 dentist night time tricyclic or gabapentin at next visit Major depr essive disorder 828236219 F32.9 start tx todayenc therapy but so many obstaclesp t with very poor outlook, focusses on obstaclesd iscussed leave from work or ST disability given the correltati on with her sxclose f/u one [place] [id number] Darling Rocha MD FP, [facility], [address] [place] [address] 09/23/2016 10:49:51 09/23/2016 11:48:30 Hypothyroidism 17410099 E03.9 stable Spasm 38386990 R25.2 resolved with stopping methotrexa te Neuralgia 53201239 M79.[address] Linton are improved with tx Vit D and B12 Major depr essive disorder 340744229 F32.9 stopped tx, wants to wait for tx of Vit D and B12 deficiency pt is quite anxiousshe has good reason but I feel there is more symptomato logy that could benefit from tx and will talk with her again at f/uenc to find therapist, she agrees this is a good idea but hasn't had time Psoriasis 2969994 L40.9 off methotrexa teworsenin gfinding relief in her sx off methotrexa tewill be exploring other options for tx Vitamin D deficiency 347 84454 E55.9 being txsx are improvingf /u 2 months to assure absorbing Cobalamin deficiency 190 178788 E53.8 being txsx are improving Impacted cerumen 8256733 6 H61.23 irrigation todayadvis ed f/u derm re tx psoriasis in canals as pt has mutliple tx she changes up [id number] Darling Rocha MD FP, [facility], [address] [place] [address] 12/27/2016 14:29:28 12/27/2016 15:29:59 Adult health examination 282049185 Z00.00 see Risk Assessment and Lifestyle Change Counseling section above Vitamin D deficiency 347 53205 E55.9 repeat screeningp t continues to supplement some ongoing fatigue Osteoarthritis 829901740 M19.90 ongoing issues with joint paincortis one helpful kneesrecen t injury at work, told degendov ve disease in her cervical vertebraew ill be doing PT at work Hypothyroidism 50973442 E03.9 poor compliance with medsTSH borderline for tx Psoriasis 4737092 L40.9 follows with dermcurren tly managing without meds Obesity 714314674 E66.9 active weight loss plantaking better care than ever in the pastf/u six monthscont inue planscreen ing [id number] as 6.1 last year Screening mammography 24 311173 Z12.31 Candidiasis of skin 4988 3006 B37.2 has tried various txwill give prescripti on powderdoes n't like creams, feel it gets worsederm suggested panniculec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
[2024-10-07] MEDS: vancomycin HCL 1,000 MG in 0.9 % Sodium Chloride 250 ML 270 MG IV ×2 (07:14→18:48)
[2024-10-07] MEDS: Lactated Ringers 1,000 ML 100 ML IVCONT ×2 (07:15→12:02)
--- NOTE | 2024-10-07 10:24 | P.BOP_ITS ---
Brief Operative Note Date of Service: 10/07/24 Pre-op diagnosis: Left knee degenerative joint disease Post-op diagnosis: same Procedure: Left total knee arthroplasty Implants: [place] [employer] cemented posterior stabilized total knee arthroplasty with a femoral component size 3 left, tibial component size 2, polyethylene liner size 2 with 9 mm of thickness, a symmetric patellar component size 27 with 8 mm of thickness Surgeon: Quintin Pérez MD Anesthesia: spinal Was an Funeral Location Manager used for this Procedure?: No Funeral Location Manager: Constantin Land Estimated blood loss (mL): 200 Pathology: other (Bony fragments from the left femur, tibia and patella) Condition: stable Disposition: PACU
--- NOTE | 2024-10-07 10:25 | P.OP_ITS ---
Operative Note Operative Note Date of Service: 10/07/24 Narrative: After the patient was identified as Pratibha Prieto and his left knee was initialed by myself the patient was brought to the holding area where a left leg nerve block was performed by the anesthesiologist in routine fashion. The patient was then brought to the operating room where conscious sedation and spinal anesthesia were performed by the anesthesiologist in routine fashion. Because of the patient's psoriasis she was given both IV Ancef and IV vancomycin preoperatively for infection prophylaxis. The patient's left lower extremity was prepped and draped in sterile fashion. A formal time-out was completed. T he patient's left knee was placed onto a small bump to produce 30? of knee flexion during exposure. A #10 scalpel blade was used to make a midline incision extending 1 handbreadth proximal and distal to the patella. A second #10 scalpel blade was used to dissect the subcutaneous tissues down to the extensor mechanism. The subcutaneous flaps were maintained as thick as possible. A medial parapatellar arthrotomy was then performed using a #10 scalpel blade. The arthrotomy was begun just medial to the patellar tendon. The arthrotomy was continued 1 cm medial to the patella and then 5 mm into the medial aspect of the quadriceps tendon. The infrapatellar fat pad was partially excised to help with exposure. The soft tissue retinaculum was raised one-half of the way around the medial aspect of the proximal tibia. The patella was everted and the knee was flexed to 90?. There was no injury to the patellar tendon or its insertion onto the tibial tubercle. A drill bit was introduced in to the distal aspect of the femur with a starting point 1 cm anterior to the origin of the posterior cruciate ligament. The intramedullary alignment ernestina was put into place. The distal alignment guide was set for a 5 degree valgus cut. The distal cutting block was put into place and was held with 4 pins. The intramedullary alignment ernestina was removed. Soft tissues were retracted in the distal femoral cut was made using a sagittal saw. The distal aspect of the femur measured to be a size 3 left component. Two drill holes were placed into the distal aspect of the femur marking 3? of external rotation. The distal cutting block was impacted into place and was held with 2 pins. Soft tissues were retracted and the 4 distal femoral cuts were made using a sagittal saw. Final notching and drilling of the distal aspect of the femur were performed in routine fashion. The trial femoral component was impacted into place. The knee was taken through a full range of motion. The patella tracked well. The patella was everted and the knee was flexed to 90?. The trial component was removed and our attention was directed to the proximal tibia. The medial and lateral menisci were removed using a #10 scalpel blade. A small rim of the medial meniscus was left intact to help prevent injury to the medial collateral ligament. A drill bit was then introduced into the proximal tibia with a s tarting point midway from medial to lateral and one-third of the way posteriorly. The intramedullary alignment ernestina was put into place. The proximal tibial cutting guide was placed over the alignment ernestina in line with the 2nd toe. The guide was held in place using 3 pins. The intramedullary alignment ernestina was removed. Soft tissues were retracted and the proximal tibial cut was made using a sagittal saw. The proximal tibia measured to be a size 2 component. The tibial tray was put into place with a 9 mm liner. The femoral component was impacted into place. The knee was taken through a full range of motion. There was full flexion and full extension. There was no instability with varus or valgus stress testing with the knee in flexion or extension. The patella tracked well with no medially directed force. The rotation of the tibial tray was marked using electrocautery with the knee in extension. The patella was everted and the knee was flexed to 90?. All trial components were removed. The tibial tray was placed onto the proximal tibia in line with the electrocautery lavonne. The tray was held in place using 3 pins. Final broaching of the proximal tibia was performed in routine fashion. The trial liner and trial femoral component were put into place. The knee was brought into extension and our attention was directed to the patella. The patella measured 25 mm in thickness. The patellar resection guide was set for a 10 mm resection. Soft tissues were retracted and the patella cut was made using a sagittal saw. The remaining patella measured 15 mm in thickness. The undersurface of the patella was measured to be a size 27 symmetric component. Three drill holes were placed into the undersurface of the patella in routine fashion. The trial component was put into place. The knee was taken through a full range of motion. The patella tracked well. The patella was everted and the knee was flexed to 90?. All trial components were removed. The knee was once again brought into extension and placed onto a small bump. The knee joint was irrigated with copious amounts of normal saline solution via pulse lavage while the cement was mixed. The patella was everted and the knee was flexed to 90?. A small amount of cement was placed along the posterior aspects of the tibial and femoral components. Cement was then pressurized into the proximal tibia. The tibial component was impacted into place. Any excess cement was removed. The polyethylene liner was then impacted into place. Cement was then pressurized into the distal aspect of the femur. A small amount of cement was placed into the intramedullary canal to help reduce bleeding. The femoral component was impacted into place. Any excess cement was removed. The knee was then brought into extension. Cement was pressurized into the undersurface of the patella. The patellar component was put into place and was held with a patella clamp. Any excess cement was removed. Once the cement had hardened the patellar clamp was removed. The knee was taken through a full range of motion. There was full flexion and extension. There was no instability with varus or valgus stress testing with the knee in flexion or extension. The patella tracked well with no medially directed force. The knee joint was irrigated with copious amounts of normal saline solution via pulse lavage. Any significant bleeding vessels were coagulated. The patient's left knee was placed onto a small bump. The arthrotomy was closed with #2 Ethibond [id number] interrupted suture as well as #1 Vicryl [id number] interrupted suture. The wound was once again irrigated. The subcutaneous tissues were closed with 0 Vicryl and 2-0 Vicryl interrupted sutures. The skin was closed with skin annabelle. Dry sterile dressing and Roland bandages were placed over the patient's left knee. The patient was awake and alert. The patient was transferred to the recovery room in stable condition.
--- NOTE | 2024-10-07 13:46 | PHA.MEDREC ---
Addendum entered by Maddy Li RPh 10/07/24 13:57: reviewed by [facility]. Original Note: Pharmacy Consult ? Medication Reconciliation Pharmacy has reviewed the medication reconciliation done by nursing. Spoke to patient to confirm med list. Patient states her next dose for Stelara 45 mg is in November, last does was in Aug 2024, and Reclast next dose is in january 2025
[2024-10-07] MEDS: oxyCODONE HCl Immed Release 5 MG TABLET PO (15:07)
--- NOTE | 2024-10-07 16:03 | HO.PM.IMCN ---
History of Present Illness Data of Consult Service Date: 10/07/24 Primary Care Provider: Meredith Hager MD [facility] Reason for consult: Medical management/ Status post left total knee arthroplasty 69-year-old female patient with past medical history of psoriasis, osteoarthritis, hypertriglyceridemia, hypertension, hypothyroidism, GERD and dysphagia admitted to Orthopedic surgery for an elective left total knee replacement postprocedure patient offers no acute complaints of nausea, no vomiting, no abdominal pain, no lightheadedness or dizziness denies knee pain. Review of Systems Review of Systems: General no headache, no dizziness no fever chills. CVS no chest pain, no palpitation. Respiratory no cough, no sob Gastrointestinal no nausea, no vomiting, no abdominal pain no urgency, no frequency Musculoskeletal no pain All other system reviewed and are negative [facility] Medical History Anxiety Pneumonia Fracture, ribs White coat syndrome without diagnosis of hypertension Vertebral compression fracture Osteoporosis Psoriasis Osteoarthritis Ocular migraine Hypertriglyceridemia Hypothyroid Dysphagia GERD (gastroesophageal reflux disease) Family History Mother Lung cancer Liver cancer Sister Hypertension Sister Multiple sclerosis Surgical History Hx of bilateral cataract extraction H/O colonoscopy Hx of arthroscopy of left knee History of esophagogastroduodenoscopy (EGD) History of tonsillectomy and adenoidectomy History of History of total right knee replacement (TKR) Social History Household Members: Spouse Housing: House Are you a primary anesthesiologist and critical care to a significant other at home: No Do you presently have visiting nurse or other home services: No Alcohol intake: current Alcohol intake frequency: holidays/special occasions only Patient Tobacco Use Status: Former Tobacco user Tobacco use type: Cigarette Years Smoked: 30 Use of substances other than those prescribed or required for medical reasons: No Have you been hit, kicked, punched, or otherwise hurt by someone within the past year? If so, by whom?: No Do you feel safe in your current relationship?: Yes Is there a partner from a previous relationship who is making you feel unsafe now?: No Are you made to feel afraid or neglected: No Spiritual Healthcare Practices: none Taoism Healthcare Practices: none Cultural Healthcare Practices: none Are you DNR?: Yes Advance Directives Information Provided: Yes (as above noted) Advance Directives on File: No Do you have a plan to hurt others: No Plan Recently lost weight without trying: No Eating poorly because of decreased appetite: No Nutrition Risks: No Nutritional Risk Patient : No FDLMP: n/a : No Poor oral hygiene: No Current occupational status: employed and retired Current occupation: [employer] Meds Allergies Allergy/AdvReac Type Severity Reaction Status Date / Time adhesive tape Allergy Intermediate Rash (from Verified 10/07/24 08:03 band aids/medicine patches) Sulfa (Sulfonamide Allergy Intermediate Vomiting Verified 10/07/24 08:03 Antibiotics) epinephrine Allergy Mild Shakiness Verified 10/07/24 08:03 varenicline [From Chantix] AdvReac Intermediate emotional Verified 10/07/24 08:03 discord Active Medications: Current Medications Acetaminophen (Acetaminophen 325 Mg Tablet) 650 mg PO Q6H PRN PRN Reason: Pain, Mild 1-3,fever,headache Aspirin (Aspirin 325 Mg Tablet) 325 mg PO BID SIDDHARTH Calcium Carbonate (Calcium Carbonate 750 Mg Tab.Chew) 750 mg PO Q4H PRN PRN Reason: Heartburn Celecoxib (Celecoxib 200 Mg Capsule) 200 mg PO BID SIDDHARTH Docusate Sodium (Docusate Sodium 100 Mg Capsule) 100 mg PO BID SIDDHARTH Gabapentin (Gabapentin 100 Mg Capsule) 100 mg PO BEDTIME SIDDHARTH Hydromorphone HCl (Hydromorphone Hcl 0.5 Mg/0.5 Ml Syringe) 0.5 mg IVPUSH Q3H PRN; Protocol PRN Reason: Pain, Severe (Pain Scale 7-10) Lactated Ringer's (Lr) 1,000 mls @ 100 mls/hr IVCONT .Q10H [facility] Last Infusion: 10/07/24 11:38 Dose: Infused Lactated Ringer's (Lr) 1,000 mls @ 100 mls/hr IVCONT .Q10H [facility] Last Admin: 10/07/24 12:02 Dose: 100 mls/hr Cefazolin Sodium/Dextrose (Ancef) 2 gm in 50 mls @ 100 mls/hr IV Q8H [facility] Stop: 10/08/24 08:00 Vancomycin HCl 1,000 mg/ (Sodium Chloride) 270 mls @ 270 mls/hr IV POSTOP ONE Stop: 10/07/24 19:59 Methocarbamol (Methocarbamol 500 Mg Tablet) 500 mg PO BEDTIME SIDDHARTH Naloxone HCl (Naloxone Hcl 0.4 Mg/Ml Vial) 0.04 mg IVPUSH Q5M PRN PRN Reason: Excessive sedation or RR < 8 Oxycodone HCl (Oxycodone Hcl Immed Release 5 Mg Tablet) 5 mg PO Q4H PRN PRN Reason: Pain, Moderate(Pain Scale 4-6) Last Admin: 10/07/24 15:07 Dose: 5 mg Oxycodone HCl (Oxycodone Hcl Er 10 Mg Tab.Er.12h) 10 mg PO BID SIDDHARTH Oxycodone HCl (Oxycodone Hcl Immed Release 5 Mg Tablet) 10 mg PO Q4H PRN PRN Reason: Pain, Moderate(Pain Scale 4-6) Sodium Chloride (0.9 % Sodium Chloride Flush 3 Ml Syringe) 3 ml IVFLUSH QSHIFT [facility] Home Medications ?Medication ?Instructions ?Recorded ?Confirmed ?Last Taken ?Type ustekinumab 45 mg/0.5 mL 45 mg subcut Q12W 05/30/23 10/03/24 Unknown History subcutaneous solution (Stelara) celecoxib 200 mg capsule 200 mg PO BEDTIME PRN Pain 09/13/23 10/03/24 Unknown History omeprazole 40 mg capsule,delayed 40 mg PO BID@0630,1630 09/13/23 10/07/24 10/07/24 History release acidophilus 100 million 1 cap PO DAILY 09/09/24 10/07/24 Unknown History cell-pectin, citrus 10 mg capsule multivitamin 1 tab PO DAILY 09/09/24 10/07/24 Unknown History zoledronic acid 5 mg/100 mL in 1 ea IV [id number] 09/09/24 10/03/24 Unknown History mannitol 5 %-water intravenous piggybck (Reclast) Physical Exam Vital Signs and Narrative: Vital Signs: Last Vital Signs Temp 97.4 F 10/07/24 11:52 Pulse 62 10/07/24 11:52 Resp 18 10/07/24 11:52 BP 135/73 10/07/24 11:52 Pulse Ox 97 10/07/24 11:52 O2 Del Method Room Air 10/07/24 11:52 BMI result Body Mass Index 27.2 Const: Other: General resting comfortably in no acute distress. Neck supple no JVD. CVS regular rate rhythm, Respiratory lungs clear to auscultation, no respiratory distress, no wheeze, no rhonchi. Gastrointestinal abdomen soft, non tender, bowel sounds audible, no guarding , no rigidity. Extremities no edema. Left knee dressing in place Neuro non focal Skin no rash Assessment and Plan (1) Arthritis of right hip: Status: Acute Plan 69-year-old female with past medical history significant for psoriasis/osteoarthritis, hypertriglyceridemia, hypothyroidism, dysphagia, GERD admitted for elective left total knee arthroplasty. Status post left total knee arthroplasty POD #0 Continue pain management with oxycodone 10 10 mg b.i.d., Celebrex 200 b.i.d. and Robaxin as per Orthopedic surgery DVT prophylaxis as per ortho, currently on compression boots for DVT prophylaxis DC IV fluids. Psoriasis /osteoarthritis stable Resume stelara as outpatient. Continue Celebrex. Hypertension stable blood pressure not on antihypertensives. GERD resume Prilosec Full code No acute medical issues will sign off. Please reconsult with acute medical issues.
[2024-10-07] MEDS: Acetaminophen 325 MG TABLET 650 MG PO (17:26)
[2024-10-07] MEDS: Omeprazole 40 MG CAPSULE.DR PO (17:26)
--- NOTE | 2024-10-07 19:00 | PC.NURSE ---
Dr. Arriaga made aware about code status, needing to be ordered.
[2024-10-07] MEDS: Docusate Sodium 100 MG CAPSULE PO (20:39)
[2024-10-07] MEDS: Celecoxib 200 MG CAPSULE PO (20:39)
[2024-10-07] MEDS: methocarbamoL 500 MG TABLET PO (20:39)
[2024-10-07] MEDS: Gabapentin 100 MG CAPSULE PO (20:39)
[2024-10-07] MEDS: 0.9 % Sodium Chloride Flush 3 ML SYRINGE IVFLUSH (20:40)
[2024-10-07] MEDS: ceFAZolin Sodium/Dextrose,Iso 2 GM/50 ML PIGGYBACK IV (20:42)
[2024-10-07] MEDS: oxyCODONE HCl ER 10 MG TAB.ER.12H PO (21:00)
[2024-10-08] MEDS: oxyCODONE HCl Immed Release 5 MG TABLET 10 MG PO ×2 (00:29→05:13)
[2024-10-08 03:00] VITALS: BP 123/60; PULSE 96; RESP 18; TEMP 36.3; O2SAT 95
[2024-10-08] MEDS: ceFAZolin Sodium/Dextrose,Iso 2 GM/50 ML PIGGYBACK IV (05:14)
[2024-10-08] MEDS: Omeprazole 40 MG CAPSULE.DR PO ×2 (05:14→17:03)
[2024-10-08 06:07] LABS: MANUAL DIFF FLAG NO
[2024-10-08 06:11] LABS: Basophils Percent Auto 0.1 % (0-2); Hematocrit 36.2 % (37.0-47.0); Hemoglobin 11.9 g/dl (12.0-16.0); Imm Gran Abs Auto 0.09 X10*3/uL (0.00-0.03); Imm Gran Pct Auto 0.6 % (0.0-0.4); Lymphocytes Percent Auto 6.5 % (20-40); Mean Corpuscular HGB Conc 32.9 g/dl (31.0-35.0); Mean Corpuscular Hemoglobin 29.4 pg (27.0-33.0); Mean Corpuscular Volume 89.4 fL (80.0-98.0); Mean Platelet Volume 9.7 fL (9.4-12.3); Monocytes Percent Auto 6.3 % (2-11); Neutrophils Absolute Auto 13.6 x10*3/uL (2.0-8.3); Neutrophils Percent Auto 86.5 % (45-73); Platelet Count 299 X10*3/uL (160-400); Red Blood Count 4.05 X10*6/uL (4.20-5.50); Red Cell Distribution Width 13.4 % (11.0-16.0); White Blood Count 15.7 X10*3/uL (4.8-10.8)
[2024-10-08 06:22] LABS: Anion Gap 11 (12-20); Blood Urea Nitrogen 10 mg/dL (9-16); Calcium 8.9 mg/dL (8.4-10.2); Carbon Dioxide 25 mmol/L (22-29); Chloride 109 mmol/L (96-108); Creatinine Clr Calc Pharmacy 72.6; Estimated Glomerular Filt Rate > 60; Glucose Fasting 123 mg/dL (60-99); Potassium 4.1 mmol/L (3.3-5.1); Sodium 141 mmol/L (135-145)
[2024-10-08 07:00] VITALS: BP 133/69; PULSE 68; RESP 18; TEMP 36.9; O2SAT 95
--- NOTE | 2024-10-08 07:34 | P.PNOP_ITS ---
Subjective Subjective Date of Service: 10/08/24 Interval history: Postop day 1 status post left total knee arthroplasty with Dr. Acevedo Patient is resting comfortably in bed No overnight events Has not been out of bed to work therapy at Denies chest pain shortness of breath palpitations Physical Exam Vital Signs: Vital Signs: Last Vital Signs Temp 98.4 F 10/08/24 07:00 Pulse 68 10/08/24 07:00 Resp 18 10/08/24 07:00 BP 133/69 10/08/24 07:00 Pulse Ox 95 10/08/24 07:00 O2 Del Method Room Air 10/08/24 07:00 BMI result Body Mass Index 27.2 Const: General: cooperative, healthy appearing and no acute distress Resp: Effort & Inspection: normal respiratory effort and able to speak in complete sentences Cardio: Rate: regular rate Peripheral pulses: Peripheral pulses 2+ throughout GI: Palpation (GI): Soft to palpation Skin: General skin exam: no rashes or lesions noted Extrem: Other: Bandage clean dry and intact. [place] intact. No erythema or joint effusion. Calf supple nontender. Neurovascularly intact. Procedures Date of Service Date of Service: 10/08/24 Progress Note: A&P Assessment and plan (1) History of total left knee replacement: Status: Acute Assessment and Plan: Pain management Begin PT for left TKA weightbearing as tolerated Begin aspirin for DVT prophylaxis Dispo pending PT eval Time Spent With Patient Time: Total time managing care of this patient today ____ minutes. Quality Stroke Does the patient have a stroke diagnosis?: No VTE Prior VTE?: No VTE Risk Level:: Surgical - very high VTE Device Contraindication: N/A - Device Ordered VTE Drug Contraindication: N/A - Med Ordered
--- NOTE | 2024-10-08 08:12 | HO.POSTANES ---
Post Anesthesia Evaluation Post Anesthesia Evaluation Date of Service: 10/08/24 Vital Signs: Vital Signs Temp Pulse Resp BP Pulse Ox O2 Del Method 10/08/24 07:00 98.4 F 68 18 133/69 95 Room Air 10/08/24 03:00 97.3 F 96 18 123/60 95 Room Air 10/07/24 23:00 97.5 F 97 18 125/62 94 Room Air Anesthesia: Spinal and General Mental Status: Awake Pain Control: Satisfactory Nausea/Vomiting: None Hydration: Adequate Anesthesia-Related Issues: No Anes. Related Issues
[2024-10-08] MEDS: 0.9 % Sodium Chloride Flush 3 ML SYRINGE IVFLUSH ×3 (08:34→20:30)
[2024-10-08] MEDS: Docusate Sodium 100 MG CAPSULE PO ×2 (08:34→20:29)
[2024-10-08] MEDS: Celecoxib 200 MG CAPSULE PO ×2 (08:34→20:29)
--- NOTE | 2024-10-08 09:41 | MHC.CM.PN ---
Patient lives with spouse. Independent with ADLs prior to surgery. PM NOHEMI Pérez PT jessica pending. Requested copy of HCP. [facility], transition to [facility]. Patient's spouse will provide transportation home.
[2024-10-08] MEDS: Aspirin 325 MG TABLET PO ×2 (10:28→20:26)
[2024-10-08] MEDS: oxyCODONE HCl Immed Release 5 MG TABLET PO ×3 (10:55→22:03)
[2024-10-08 11:00] VITALS: BP 174/76; PULSE 86; RESP 18; TEMP 36.8; O2SAT 96
--- NOTE | 2024-10-08 11:37 | PM.DS ---
DS: Providers Provider Date of Service: 10/08/24 Date of discharge: 10/08/24 Primary care physician: Meredith Hager MD Consults: 10/07/24 11:34 Consult to Hospitalist Routine Comment: Consulting Provider: [facility] Hospital[facility] Reason For Exam: Ongoing medical management, status post L TKA DS: Diagnosis Discharge Diagnosis (1) History of total left knee replacement: Status: Acute DS: Summary Hospital Course Hospital Course: The patient underwent a successful left total knee arthroplasty on 10/07/[address] Pérez, was transferred to PACU and then to the floor to recover. During their stay, their vitals were stable, afebrile at 98.4 . Labs were unremarkable, H/H 11.9/36.2. POD 1 she was started on ASA 325mg tabs po bid for DVT ppx, they also received Physical Therapy services twice a day. Physical therapy should include gait training, ROM to tolerance and quad strength. SHe is WBAT. Prior to discharge, dressing clean dry and intact. The Aquacel dressing should remain intact and dry at all times. Any concerns with the dressing, please contact orthopedic office. No showering. The plan is to be discharged home with vna Time Attestation Discharge Coordination Time (in mins): 30 Quality: Safe Use of Opioids Does Pt have an Active Cancer Diagnosis on the Problem List?: No Quality: Stroke Does the patient have a stroke diagnosis?: No Physical Exam Vital Signs: Vital Signs: Last Vital Signs Temp 98.4 F 10/08/24 07:00 Pulse 68 10/08/24 07:00 Resp 18 10/08/24 07:00 BP 133/69 10/08/24 07:00 Pulse Ox 95 10/08/24 07:00 O2 Del Method Room Air 10/08/24 07:00 BMI result Body Mass Index 27.2 DS: Data Data Completed and Pending Pending studies at discharge: Pending at discharge 10/07/24 08:38 Surgical [PTH] Routine Labs on day of discharge: Laboratory Results - last 24 hr 10/08/24 05:26 WBC 15.7 H RBC 4.05 L Hgb 11.9 L Hct 36.2 L MCV 89.4 MCH 29.4 MCHC 32.9 RDW 13.4 Plt Count 299 MPV 9.7 Immature Gran % (Auto) 0.6 H Neut % (Auto) 86.5 H Lymph % (Auto) 6.5 L [place] % (Auto) 6.3 Eos % (Auto) 0.0 Baso % (Auto) 0.1 Lymph # (Auto) 1.0 L [place] # (Auto) 1.0 Eos # (Auto) 0.0 Baso # (Auto) 0.0 Abs Immat Gran (auto) 0.09 H Absolute Neuts (auto) 13.6 H Absolute Nucleated RBC 0.000 Nucleated RBC % (auto) 0.0 Sodium 141 Potassium 4.1 Chloride 109 H Carbon Dioxide 25 Anion Gap 11 L BUN 10 Creatinine 0.68 Estim Creat Clear Calc 72.6 Estimated GFR > 60 Fasting Glucose 123 H Calcium 8.9 Discharge Plan Discharge Patient Disposition: Home, Self-Care Referrals: Amalia Rocha PA-C [Physician Senior Research Fellow] - 10/24/24 12:30 pm Discharge Medications: New celecoxib 200 mg Capsule 200 mg PO BID 30 Days Qty: 60 0RF methocarbamol 500 mg Tablet 500 mg PO BEDTIME 7 Days Qty: 7 0RF acetaminophen 325 mg Tablet 650 mg PO Q6H PRN (Reason: Pain, Mild 1-3,Fever,Headache) 30 Days Qty: 240 0RF aspirin 325 mg Tablet 325 mg PO BID 42 Days Qty: 84 0RF docusate sodium 100 mg Capsule 100 mg PO BID 14 Days Qty: 28 0RF gabapentin 100 mg Capsule 100 mg PO BEDTIME 7 Days Qty: 7 0RF oxycodone 5 mg Tablet 5 mg PO Q4H PRN (Reason: Pain, Moderate(Pain Scale 4-6)) 7 Days Qty: 42 0RF Rx Instructions: Partial Fill upon patient request. Continued (MAYTE) [facility] See Rx Instructions .ROUTE .MEDSUPPLY Qty: 1 0RF Rx Instructions: Alcon front wheeled kenrick zoledronic [id number] [Reclast] 5 mg/100 mL Piggyback 1 ea IV [id number] acidophilus-pectin, citrus 100 million cell-10 mg Capsule 1 cap PO DAILY multivitamin Tablet 1 tab PO DAILY omeprazole 40 mg capsule,delayed release(DR/EC) 40 mg PO BID@0630,1630 Stelara 45 mg/0.5 mL solution 45 mg subcut Q12W Discontinued celecoxib 200 mg capsule 200 mg PO BEDTIME PRN (Reason: Pain) Discharge Orders: Discharge Order (Routine); Ordered 10/08/24 Ordered By: Sissy Jacobs Diet: Advance to usual diet Activity on Discharge: Use cane or walker Activity Restrictions/Additional Instructions: Physical Therapy for ROM 0-120, quad strength, gait training. Use walker for ambulation Limit stair climbing, No shower, No tub bath, No driving Continue Aspirin x 6 weeks Keep Aquacel dressing clean, dry and intact. Follow up with orthopedics in 2 weeks Print Language: Gibraltarian
--- NOTE | 2024-10-08 11:39 | W.MHC.F2F ---
Service Date Service Date: 10/08/24 Encounter Date of encounter: 10/08/24 Reasons for Services Signs and symptoms assessed: Weakness, poor balance, poor gait mechanics Reason for physical therapy: home safety and mobility, therapeutic exercises, restore joint function, gait/transfer training, ADL training and energy conservation Reason for occupational therapy: home safety and mobility, therapeutic exercises, restore joint function, gait/transfer training, ADL training and energy conservation Overseeing Care: Quintin Pérez Homebound: Leaving the home is medically contraindicated at this time without the asist of a device and/or another person due th the listed conditions above and below. Reason homebound: unsteady gait / fall risk, pain with ambulation, poor balance / fall risk and unable to drive Homebound supporting statement: Pt. is considered home bound due to recent surgery. Unable to drive, poor balance, poor gait mechanics. Certification: Based on the above findings, I certify that this patient is confined to the home and needs intermittent retirement care, physical therapy and/or speech therapy, or continues to need occupational therapy. The patient is under my care, and I have initiated the establishment of the plan of care. The patient will be followed by a physician who will periodically review the plan of care. Time Spent With Patient Time: Total time managing care of this patient today ____ minutes.
[2024-10-08 15:00] VITALS: BP 142/66; PULSE 68; RESP 18; TEMP 36.3; O2SAT 97
[2024-10-08 19:00] VITALS: BP 136/63; PULSE 90; RESP 18; TEMP 36.7; O2SAT 93
[2024-10-08] MEDS: Gabapentin 100 MG CAPSULE PO (20:29)
[2024-10-08] MEDS: methocarbamoL 500 MG TABLET PO (20:29)
[2024-10-08 23:00] VITALS: BP 142/67; PULSE 75; RESP 18; TEMP 36.6; O2SAT 95
[2024-10-09 03:00] VITALS: BP 138/67; PULSE 94; RESP 18; TEMP 37.2; O2SAT 94
[2024-10-09] MEDS: Omeprazole 40 MG CAPSULE.DR PO (05:35)
[2024-10-09 06:08] LABS: MANUAL DIFF FLAG NO
[2024-10-09 06:11] LABS: Basophils Absolute Auto 0.1 X10*3/uL (0.0-0.2); Basophils Percent Auto 0.4 % (0-2); Eosinophils Absolute Auto 0.4 X10*3/uL (0.0-0.4); Eosinophils Percent Auto 2.9 % (0-4); Hematocrit 36.5 % (37.0-47.0); Hemoglobin 11.8 g/dl (12.0-16.0); Imm Gran Abs Auto 0.12 X10*3/uL (0.00-0.03); Lymphocytes Absolute Auto 2.6 X10*3/uL (1.2-4.9); Mean Corpuscular HGB Conc 32.3 g/dl (31.0-35.0); Mean Corpuscular Hemoglobin 29.4 pg (27.0-33.0); Mean Corpuscular Volume 90.8 fL (80.0-98.0); Mean Platelet Volume 9.5 fL (9.4-12.3); Monocytes Absolute Auto 1.2 X10*3/uL (0.1-1.2); Monocytes Percent Auto 9.7 % (2-11); Neutrophils Absolute Auto 8.1 x10*3/uL (2.0-8.3); Platelet Count 239 X10*3/uL (160-400); Red Blood Count 4.02 X10*6/uL (4.20-5.50); Red Cell Distribution Width 13.6 % (11.0-16.0); White Blood Count 12.4 X10*3/uL (4.8-10.8)
[2024-10-09 06:25] LABS: Anion Gap 10 (12-20); Blood Urea Nitrogen 6 mg/dL (9-16); Calcium 8.6 mg/dL (8.4-10.2); Carbon Dioxide 26 mmol/L (22-29); Chloride 108 mmol/L (96-108); Creatinine Clr Calc Pharmacy 82.3; Estimated Glomerular Filt Rate > 60; Glucose Fasting 100 mg/dL (60-99); Potassium 3.5 mmol/L (3.3-5.1); Sodium 140 mmol/L (135-145)
[2024-10-09 07:00] VITALS: BP 182/84; PULSE 89; RESP 16; TEMP 38.2; O2SAT 98
[2024-10-09] MEDS: Aspirin 325 MG TABLET PO (07:59)
[2024-10-09] MEDS: oxyCODONE HCl Immed Release 5 MG TABLET PO (08:00)
[2024-10-09] MEDS: Docusate Sodium 100 MG CAPSULE PO (08:00)
[2024-10-09] MEDS: Celecoxib 200 MG CAPSULE PO (08:00)
[2024-10-09] MEDS: 0.9 % Sodium Chloride Flush 3 ML SYRINGE IVFLUSH (08:01)
[2024-10-09 09:37] VITALS: BP 111/59
--- NOTE | 2024-10-09 09:37 | HO.WOUND ---
Wound Consult: Initial 69yr old?female admitted to [facility] on 10/07/24 - See progress notes and H&P for detailed history.? Wound consult placed for Psoriasis Rash.? Patient agreeable to assessment and photo documentation.? She reports she treats her psoriasis with Injections through her Leave Specialist. She is due for injection in October. The lesions were assessed and are intact and dry scaling tissue they do not appear to be in an active flare at this time. Patient denies symptoms at this time. No topical recommendations needed at this time. Patient reports she will continue to treat via her manager fashion.
--- NOTE | 2024-10-09 10:37 | MHC.CM.PN ---
Patient is discharged to home to. [facility] will provide home services. [facility] will provide outpatient thereapy. Discharge information has been sent to both facilities. Patient has arranged for her spouse to provide transportation home.
== END 2024-10-09 12:04 | disposition home health service (06) ==
LOC: HO.SSS 05:54 → HO.S3 11:07
PROVIDERS: Physician Assistant; PCP Family Medicine; Visit Provider Orthopaedic Surgery
PROC: (CPT 27447; principal; 2024-10-07 07:30)
DX: M17.12 Unilateral primary osteoarthritis, left knee (principal); L40.9 Psoriasis, unspecified; Z96.651 Presence of right artificial knee joint; M16.11 Unilateral primary osteoarthritis, right hip; I10 Essential (primary) hypertension; E78.1 Pure hyperglyceridemia; E03.9 Hypothyroidism, unspecified; K21.9 Gastro-esophageal reflux disease without esophagitis; Z79.899 Other long term (current) drug therapy; Z88.2 Allergy status to sulfonamides; L23.1 Allergic contact dermatitis due to adhesives; Z88.8 Allergy status to other drugs, medicaments and biological substances; Z87.891 Personal history of nicotine dependence
CPT/HCPCS: 27447; 36415; 80048; 85025; 86850; 86870; 86885; 86900; 86901; 86920; 86922; 87640; 87641; 88305; 88311; 97110; 97116; 97161; 97530; C1776; J0131; J0665; J0690; J1100; J2003; J2250; J2371; J2405; J2704; J3370; J7120

== ENCOUNTER → 2024-10-07 05:53 | Outpatient (BNV) | payer MEDICARE, SELFPAY | PROVIDERS: PCP Family Medicine; Visit Provider Orthopaedic Surgery | DX: Z47.1 Aftercare following joint replacement surgery (principal); Z96.652 Presence of left artificial knee joint | CPT/HCPCS: 27447; 99024; G0180 ==

== ENCOUNTER → 2024-10-07 05:53 | Outpatient (BNV) | payer MEDICARE, SELFPAY | PROVIDERS: PCP Family Medicine; Visit Provider Hospitalist | DX: M17.12 Unilateral primary osteoarthritis, left knee (principal); I10 Essential (primary) hypertension | CPT/HCPCS: 99222 ==

== ENCOUNTER 2024-10-23 13:19 | Outpatient (AMB) | payer MEDICARE, SELFPAY ==
--- NOTE | 2024-10-23 13:20 | A.OFFVIS_ITS ---
Intake Visit Reasons: 2WK PO: left TKA 10/07/24 DR Bowles Note: Lucrecia is a 69 year old who presents for follow-up after undergoing left total knee replacement surgery on 10/07/2024. The patient's physical therapist recommended that she come earlier than her scheduled appointment because of bloody drainage on her dressing. The patient denies any fevers or chills. She is no longer taking oxycodone for her discomfort. She has been taking just Tylenol which gives her good relief. Allergies adhesive tape Allergy (Intermediate, Verified 10/23/24 13:27) Rash (from band aids/medicine patches) Sulfa (Sulfonamide Antibiotics) Allergy (Intermediate, Verified 10/23/24 13:27) Vomiting epinephrine Allergy (Mild, Verified 10/23/24 13:27) Shakiness varenicline [From Chantix] Adverse Reaction (Intermediate, Verified 10/23/24 13:27) emotional discord Medication List - Last Reconciled 10/23/24 by Quintin Pérez MD acetaminophen 650 mg (2 x 325 mg) PO Q6H PRN 30 days acidophilus-pectin, citrus 100 million cell-10 mg 1 cap PO DAILY aspirin 325 mg PO BID 42 days celecoxib 200 mg PO BID 30 days docusate sodium 100 mg PO BID 14 days fluconazole 150 mg PO ONCE gabapentin 100 mg PO BEDTIME 7 days methocarbamol 500 mg PO BEDTIME 7 days multivitamin 1 tab PO DAILY omeprazole 40 mg PO BID@0630,1630 oxycodone 5 mg PO Q4H PRN 7 days ustekinumab (Stelara) 45 mg subcut Q12W walker Folding front wheeled walker zoledronic skhb-nbhbewjp-xeged 5 mg/100 mL (Reclast) 1 ea IV [id number] PFSH Medical History Anxiety Pneumonia Fracture, ribs White coat syndrome without diagnosis of hypertension Vertebral compression fracture Osteoporosis Psoriasis Osteoarthritis Ocular migraine Hypertriglyceridemia Hypothyroid Dysphagia GERD (gastroesophageal reflux disease) Surgical History Hx of bilateral cataract extraction H/O colonoscopy Hx of arthroscopy of left knee History of esophagogastroduodenoscopy (EGD) History of tonsillectomy and adenoidectomy History of History of total right knee replacement (TKR) Family History Mother Lung cancer Liver cancer Sister Hypertension Sister Multiple sclerosis Social History Household Members: Spouse Housing: House Are you a primary customer care assistant to a significant other at home: No Do you presently have visiting nurse or other home services: No Alcohol intake: current Alcohol intake frequency: holidays/special occasions only Patient Tobacco Use Status: Former Tobacco user Tobacco use type: Cigarette Years Smoked: 30 service: No Current occupational status: employed and retired Current occupation: [employer] Physical Exam Extrem Other: Left knee examination shows that the surgical incision is healing well, full active extension and flexion to 100 10 degrees, a mild amount of redness around her incision, minimal sanguinous discharge Assessment & Plan Assessment & Plan (1) History of total left knee replacement: Code(s): Z96.652 - Presence of left artificial knee joint Category: Medical Plan Ms. Prieto is doing fairly well after undergoing left total knee replacement surgery on 10/07/2023. Because of the redness around the patient's incision I removed only some of her annabelle. I also placed her on Keflex for possible early cellulitis. She can continue with her physical therapy exercises. I will see her back next week for removal of the remaining annabelle. She will call me prior to that time should any questions or concerns arise. Medications: New fluconazole 150 mg PO ONCE 1 tab 0RF cephalexin 500 mg PO QID 7 days 28 caps 0RF Coding Level of Care Code Global (01849) Diagnoses History of total left knee replacement Z96.652
--- OUTSIDE RECORDS SUMMARY | 2024-10-23 15:26 | XMS_ITS | Data Portability ---
Author Organization [facility], [facility] Address [address] [place] [address] Care Team Providers Care Chief Psychology Name Role Phone DARLING ROCHA Primary Care Provider EZIO LONDON Looper Fixer [phone] CHIRAG REECE Vice President Of Business Development MARCIO LOZADA Broadband Technician Assessment Encounter Date Assessment Date Assessment LastModified [...] our office for worsening or urgent symptoms. [email or web address] Not available 05/04/2020 14:49:40 Plan of Treatment Reminders Order Date Submit Date Provider Last Modified By Organization Details Last Modified Time Details Appointments None recorded. Lab CBC 2019 020 [facility], [address] [place] [address], [address], 0 14:53:37 BMP, serum or plasma 2019 020 [facility], [address] [place] [address], [address], 0 12:02:28 vitamin D, 25-hydrox y, total, serum 2019 020 [facility], [address] [place] [address], [address], 0 12:20:02 MAURICIO (antinucl ear antibodie s) screen, ifa, serum 2019 020 [facility], [address] [place], [address], 0 15:32:59 Referral None recorded. Procedures None recorded. Surgeries None recorded. Imaging None recorded. Medication Orders clotrimaz ole-betam ethasone 1 %-0.05 % topical cream 2019 020 [id number], [address] [place], [address], 0 14:22:06 Patient TargetsNo targets recorded. Patient Instructions Encounter Date Encounter Id Patient Instructions Last Modified By Organization Details Last Modified Time 02/18/2020 [id number] After a discussi on of treatment options, which included consideration of best practices and patient preferences, the following treatment plan and objectives were adopted: as above. [email or web address] Not available 02/18/2020 14:08:12 05/04/2020 [id number] After a discussi on of treatment and [...] / or use Purell or other hand safety risk lead -Do not touch your face, eyes, nose, [...] concerns. [email or web address] Not available 05/04/2020 14:54:46 05/08/2020 [id number] Enc continue social distancing, frequent handwashing, cover [...] WBC 9.47 K/??L 3.98-1 0.04 Not Available [address], [address], 03/24/2020 14:53:37 03/24/2003/24/2020 CBC RBC 4.62 M/??L 3.93-5 .22 Not Available [address], [address], 03/24/2020 14:53:37 03/24/2003/24/2020 CBC HGB 13.9 g/dL 11.2-1 5.7 Not Available [address], [address], 03/24/2020 14:53:37 03/24/20 20 03/24/2020 CBC HCT 42.8 % 34.1-4 4.9 Not Available [address], [address], 03/24/2020 14:53:37 03/24/2003/24/2020 CBC MCV 92.6 fL 79.4-9 4.8 Not Available [address], [address], 03/24/2020 14:53:37 03/24/2003/24/2020 CBC MCH 30.1 pg 25.6-3 2.2 Not Available [address], [address], 03/24/2020 14:53:37 03/24/20 20 03/24/2020 CBC MCHC 32.5 g/dL 32.2-3 5.5 Not Available [address], [address], 03/24/2020 14:53:37 03/24/20 20 03/24/2020 CBC plt 331 K/??L 182-36 9 Not Available [address], [address], 03/24/2020 14:53:37 03/24/20 20 03/24/2020 CBC MPV 10.4 fL 9.4-12 .3 Not Available [address], [address], 03/24/2020 14:53:37 03/24/20 20 03/24/2020 CBC neut% 61.9 % 34.0-7 1.1 Not Available [address], [address], 03/24/2020 14:53:37 03/24/20 20 03/24/2020 CBC neut# 5.86 1.56-6 .13 Not Available [address], [address], 03/24/2020 14:53:37 03/24/20 20 03/24/2020 CBC lymph % 25.2 % 19.3-5 1.7 Not Available [address], [address], 03/24/2020 14:53:37 03/24/20 20 03/24/2020 CBC lymph # 2.39 K/??L 1.18-3 .74 Not Available [address], [address], 03/24/2020 14:53:37 03/24/20 20 03/24/2020 CBC mono% 7.6 % 4.7-12 .5 Not Available [address], [address], 03/24/2020 14:53:37 03/24/20 20 03/24/2020 CBC mono# 0.72 0.24-0 .56 high Not Available [address], [address], 03/24/2020 14:53:37 03/24/20 20 03/24/2020 CBC eo% 3.7 % 0.7-5. 8 Not Available [address], [address], 03/24/2020 14:53:37 03/24/20 20 03/24/2020 CBC eo# 0.35 0.04-0 .36 Not Available [address], [address], 03/24/2020 14:53:37 03/24/20 20 03/24/2020 CBC baso% 1.0 % 0.1-1. 2 Not Available [address], [address], 03/24/2020 14:53:37 03/24/20 20 03/24/2020 CBC baso# 0.09 0.00-0 .08 high Not Available [address], [address], 03/24/2020 14:53:37 03/24/20 20 03/24/2020 CBC RDW-CV 13.2 % 11.7-1 4.4 Not Available [address], [address], 03/24/2020 14:53:37 03/24/20 20 03/24/2020 CBC Ig% 0.600 % 0.000- 1.500 Ig % >0.5 Indic ates possi ble Left Shift Not Available [address], [address], 03/24/2020 14:53:37 03/24/20 20 03/24/2020 CBC Ig# 0.060 0.000- 0.093 Not Available [address], [address], 03/24/2020 14:53:37 03/24/20 20 03/24/2020 CBC NRBC% 0.0 % 0.0-0. 2 Not Available [address], [address], 03/24/2020 14:53:37 03/24/20 20 03/24/2020 CBC NRBC# 0.000 0.000- 0.012 Not Available [address], [address], 03/24/2020 14:53:37 03/24/20 20 03/25/2020 BMP, serum or plasm a glucose 145 mg/dL 70-100 high LIPG= Speci men Marke dly Lipem ic. Chem Resul ts may be effec deanna. Not Available [address], [address], 03/25/2020 12:02:28 03/24/20 20 03/25/2020 BMP, serum or plasm a BUN 10 mg/dL 7-18 Not Available [address], [address], 03/25/2020 12:02:28 03/24/2003/25/2020 BMP, serum or plasm a creatinine 0.8 mg/dL 0.8-1. 3 Not Available [address], [address], 03/25/2020 12:02:28 03/24/20 20 03/25/2020 BMP, serum or plasm a B/C 12.5 ratio Not Available [address], [address], 03/25/2020 12:02:28 03/24/20 20 03/25/2020 BMP, serum or plasm a GFR -non 80.6 mL/mi n Recom tanja d GFR by the Natio nal Kidne y Found ation >60 mL/mi n/1.7 3m2 - Na l <60 mL/mi n/1.7 3m2 - Chron ic Kidne y Disea se <15 mL/mi n/1.7 3m2 - Kidne y Failu re Not Available [address], [address], 03/25/2020 12:02:28 03/24/20 20 03/25/2020 BMP, serum or plasm a GFR - if 92.7 mL/mi n For Afric an Ameri can patie nts: Resul ts Multi plied by 1.21 Not Available [address], [address], 03/25/2020 12:02:28 03/24/20 20 03/25/2020 BMP, serum or plasm a sodium 144 mmol/ L 136-14 5 Not Available [address], [address], 03/25/2020 12:02:28 03/24/2003/25/2020 BMP, serum or plasm a potassium 3.7 mmol/ L 3.5-5. 1 Not Available [address], [address], 03/25/2020 12:02:28 03/24/2003/25/2020 BMP, serum or plasm a chloride 107 mmol/ L 96-107 Not Available [address], [address], 03/25/2020 12:02:28 03/24/2003/25/2020 BMP, serum or plasm a anion gap 11.8 5.0-15 .0 Not Available [address], [address], 03/25/2020 12:02:28 03/24/2003/25/2020 BMP, serum or plasm a CO2 25 mmol/ L 21-32 Not Available [address], [address], 03/25/2020 12:02:28 03/24/20 20 03/25/2020 BMP, serum or plasm a calcium 8.9 mg/dL 8.5-10 .3 Not Available [address], [address], 03/25/2020 12:02:28 03/24/2003/25/2020 TSH, serum or plasm a TSH 0.82 uIU/m L 0.50-6 .00 The Ameri can Colle ge of Endoc rinol ogy and Ameri can Thyro id Assoc iatio n recom mend goal TSH value s betwe en 0.4-4 .0 mIU/m L. Not Available [address], [address], 03/25/2020 12:20:01 03/24/20 20 03/25/2020 vitam in [...] er than 30 ng/mL . Not Available [address], [address], 03/25/2020 12:20:02 03/24/20 20 03/25/2020 AST/S GOT (aspa rtate amino trans feras e), serum or plasm a AST 25 U/L 0-37 LIPG= Speci dora Perez dly Lipem ic. Chem Resul ts may be effec deanna. Not Available [address], [address], 03/25/2020 12:46:25 03/24/20 20 03/25/2020 ALT (sara ine amino trans feras e), serum or plasm a ALT 49 U/L 6-63 Not Available [address], [address], 03/25/2020 12:46:26 03/24/20 20 03/25/2020 MAURICIO (anti [...] Patte rns (http s://d oi.or g/10. 1515/ [facility]2017- 0052) For addit ional infor li yanes e refer to http: //[facility] adalberto santamaria.Que stDia gnost ics.c om/fa q/FAQ 177 (This link is being provi ded for infor rachna kaplan/ educspenser marie purpo ses only. ) Not Available 9158 [employer]- [facility] [address] [place] [address], [place], [address], 03/25/2020 15:32:58 03/24/2003/25/2020 HbA1c (hemo globi n A1c), blood hemoglobin A1C 5.9 % 4.8-6. 0 Goal: <7% in Patie nts with Diabe barbie Not Available [address], [address], 03/25/2020 15:42:28 03/24/2003/25/2020 HbA1c (hemo globi n A1c), blood estimated average glucose 122.6 mg/dL Not Available [address], [address], 03/25/2020 15:42:28 Result Notes None recorded. Problems Name Problem SNOMED Code Status Onset Date Resolution Date Notes Provider Name and Address Organization Details Recorded Time Hypothyro idism 31023336 [place], [address], [facility] 6 10:34:37 Psoriasis 9824402 [place], [address], [facility] 6 17:39:38 Osteoarth ritis 974647378 [place], [address], [facility] 6 17:21:01 Vitamin D deficienc y 62082476 Active 2015 [place], [address], [facility] 6 12:18:54 Cobalamin deficienc y 092527926 Active 2015 [place], [address], [facility] 6 12:19:24 Ophthalmi c migraine 92853658 Active 2017 MD [place], [address], [facility] 8 12:49:07 Obesity 098315405 Active 2017 [place], [address], [facility] 8 10:43:25 Adenomato us polyp of colon 338245580 Active 2018 [place], [address], [facility] 9 12:38:22 Cyst of kidney 021523586 Active 2019 repeat US 11/2020 to assure no changes [place], [address], [facility] 0 08:56:05 Complicat ion of medical care 45700208 Completed 200708/14/2013 Darling Rocha MD [address] [place] [address] [place], [address], [facility] 6 17:21:01 Problem Notes None recorded. Procedures Surgical History Date Name Laterality Status Provider Name and Address Organization Details Recorded Time 05/08/20 20 Cerumen Removal - Irrigation/Lava ge completed Agatha Boles NP [address] [place] [address], [address], [facility] 05/08/2020 13:33:51 10/10/19 20 Cerumen Removal - Irrigation/Lava ge completed Nori Meadows RN [facility] 10/10/2019 14:57:52 05/04/20 19 POC Urinalysis Testing completed Bette Pardo MA [facility] 05/04/2019 11:23:15 11/21/19 19 POC Urinalysis Testing completed Swati Patricia MA [facility] 11/21/2018 11:38:48 08/28/20 18 Cerumen Removal - Irrigation/Lava ge completed Rita Ramos [facility] 08/28/2018 11:46:20 03/16/20 18 Cerumen Removal - Irrigation/Lava ge completed Yadira Finley MD [address] [place] [address], [address], [facility] 03/16/2018 15:02:34 01/06/20 18 [address]: Therapeutic Exercise completed Deirdre Trujillo, PT [address] [place], [address], [facility] 01/05/2018 13:09:35 01/06/20 18 [address]: Manual Therapy completed Deirdre Trujillo, PT [address] [place], [address], [facility] 01/05/2018 13:09:38 01/06/20 18 Treatment and Advice completed Deirdre Trujillo, PT [address] [place], [address], [facility] 01/05/2018 12:41:49 12/27/19 18 [address]: Therapeutic Exercise completed Deirdre Trujillo, PT [address] [place], [address], [facility] 12/26/2017 13:30:27 12/27/19 18 Treatment and Advice completed Deirdre Trujillo, PT [address] [place], [address], [facility] 12/26/2017 13:27:24 12/20/19 18 [address]: Therapeutic Exercise completed Deirdre Trujillo, PT [address] [place], [address], [facility] 12/19/2017 15:39:43 12/20/19 18 Treatment and Advice completed Deirdre Trujillo, PT [address] [place], [address], [facility] 12/19/2017 14:56:59 12/13/19 18 Physical Activity Counselling completed Deirdre Trujillo, PT [address] [place], [address], [facility] 12/12/2017 15:27:42 12/13/19 18 [address]: PT Eval, Moderate Complexity completed Deirdre Trujillo, PT [address] [place], [address], [facility] 12/12/2017 15:27:38 12/13/19 18 Treatment and Advice completed Deirdre Trujillo, PT [address] [place], [address], [facility] 12/12/2017 14:31:02 09/23/20 16 Cerumen Removal - Irrigation/Lava ge completed Isabella Pulido LPN [facility] 09/23/2016 11:49:35 02/02/20 16 POC Urinalysis Testing completed Jory Vallecillo LPN [facility] 02/02/2016 16:08:03 Imaging Results None recorded. Procedure Notes None recorded. Medical Equipment None Reported. Allergies Allergen ID Allergen Name Allergen Category Reaction Reaction Severity Criticality Documentation Date Start Date Code Code System Note Provider Name and Address Organization Details Recorded Time 763445 meloxicam medicatio n Not available Not available Not available 04/09/2015 75276 RxNorm Too drows y. Milagro Chris, TOMAS [address] [facility] [place], [address] , [facility] 5 12:03:16 293403 epinephri ne medicatio n Not available Not available Not available 07/22/2015 3992 RxNorm pt has had & has been o.k. but had & got jitte ry & rash the next day. Patricia Awad [facility] 6 11:50:09 349169 Chantix medicatio n Not available Not available Not available 07/22/2015 16719 [address] Juan F Nevarez [facility] 5 12:17:50 090924 doxycycli ne Not available nausea Not available Not available 09/19/2018 3640 RxNorm Christie Moser [facility] 8 15:44:39 Medications Name Sig Start Date [...] Not Available Not Available No t Available Altus Thyroid 15 mg tablet TAKE 4 TABLETS [...] Not Available Vitals Date Recorded Body height Provider Name an d Address Organization Details Last Updated DateTime 02/18/2020 162.56 cm Darling Rocha MD [address] [place] [address], [address], [facility] 02/18/2020 14:08:31 Date Recorded Body mass index (BMI) Body weight Provider Name and Address Organization Details Last Updated DateTime 02/18/2020 32.6 kg/m2 98001.55 g Darling Rocha MD [address] [place] [address], [address], [facility] 02/18/2020 14:08:40 Date Recorded Body height Provider Name an d Address Organization Details Last Updated DateTime 05/08/2020 162.56 cm Juan F Nevarez MA [facility] 05/08/2020 12:21:06 Date Recorded Body mass index (BMI) Body weight Provider Name and Address Organization Details Last Updated DateTime 05/08/2020 33.7 kg/m2 07593.5 g Juan F Nevarez MA [facility] 05/08/2020 12:21:18 Date Recorded Body temperature Provider Name a nd Address Organization Details Last Updated DateTime 05/08/2020 97.8 [degF] Juan F Nevarez MA [facility] 05/08/2020 12:21:36 Date Recorded Heart rate Provider Name an d Address Organization Details Last Updated DateTime 05/08/2020 68 /min Juan F Nevarez MA [facility] 05/08/2020 12:21:38 Date Recorded Systolic blood pressure Diastolic blood pressure Provider Name and Address Organization Details Last Updated DateTime 05/08/2020 136 mm[Hg] 84 mm[Hg] Juan F Nevarez MA [facility] 05/08/2020 12:21:28 Social History Question Answer Notes LastModified by Organization Details LastModified Time Tobacco Smoking Status Former Smoker quit 8yrs ago-04/09/15, smoked for 30 yrs, smoked 1-2 PPD RODRIGO Singer [facility] 04/09/2015 11:51:45 What Is Your Level Of [...] not available 10/23/2015 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 No Information not available 04/09/2015 Does The Patient Have Difficulty Reading Northern Irish? No Information not available 04/09/2015 Patient Has Health Care Proxy Signed And In Chart Yes Ezio Conner, Spouse Information not available 04/10/2015 Transgender No Information not available 10/23/2015 Marital Status Ezio 1984 Informatio n not available 10/23/2015 Mosquito Repellent Used Routinely Yes When Milagros Information not available 04/09/2015 What Was The Date Of Your Most Recent Tobacco Screening? 05/08/2020 [email or web address] Information not available 05/08/2020 How Many Children Do You Have? 2 Edison 1984 And Lm 1985 Information not available 10/23/2015 Are There Any Occupational Health Risks Where You Work? None [email or web address] Information not available 10/23/2015 Seat Belts Used [...] virus, quadrivalent, PF 8 completed Not Available [facility] 10/12/2019 02:34:17 Tdap 2 completed RODRIGO Steven [facility] 05/12/2015 08:52:35 influenza, unspecified formulation 3 completed RODRIGO Reeves [facility] 07/22/2015 12:16:56 Td(adult) unspecified formulation 7 completed RODRIGO Reeves [facility] 07/22/2015 12:16:56 Influenza, split virus, quadrivalent, preservative 6 completed Karen Alcaraz RMSpenser null, [facility] 07/15/2016 17:00:35 Influenza, split virus, quadrivalent, PF 9 completed Not Available [facility] 10/12/2019 02:29:22 pneumococcal polysaccharide PPV23 0 completed Not Available [facility] 10/12/2019 02:40:15 influenza, unspecified formulation 8 completed Christie Moser null, [facility] 09/19/2018 15:50:42 Td (adult), 2 Lf tetanus toxoid, preservative free, adsorbed 0 completed Nori Meadows RN null, [facility] 05/08/2020 15:36:28 Influenza, high-dose, quadrivalent, PF 0 completed OC MontillaRMSpenser [facility], [facility] 07/11/2020 11:24:54 Past Encounters Encounter ID Performer Location Encounter Start Date Encounter Closed Date Diagnosis/Indication Diagnosis SNOMED-CT Code Diagnosis ICD10 Code Diagnosis Note [id number] [facility], [facility] [address] [place] [address] 02/12/2008 15:45:42 10/15/2008 02:02:29 [id number] [facility] [address] [place] [address] 04/28/2008 15:25:26 10/15/2008 02:02:29 [id number] Milagro Chris NP , [facility], OFFICE [address] [place] [address] 04/09/2015 11:31:06 04/09/2015 12:32:46 Psoriasis 1669986 New pt establishi ng with the practice. [...] if Dr. Robbins would be comfortabl e dilip g it. She will need to have a CBC with diff, BUN, CRET, LYTES, serum albumin in one month, and every 1-2 months there after. Inst pt on the potential s/e's and dangers when taking methotrexa te, including but not limited to, severe infections and possible fatalities . She is aware to not take her dose if she is ill. Hypothyroidism 23254458 [id number] Sam Lewis , [facility], [address] [place] [address] 05/01/2015 16:23:27 05/01/2015 17:21:30 Psoriasis 8297071 Cutaneous psoriasis, previously followed by Dermatolog y [...] MTX reviewed. Check CBC and CMP. Hypothyroidism 42386417 Was told TSH was normal in December-January 2015 during her physical. Denies any previous intoleranc e to Levothyrox ine. Records requested. [id number] Charlene Gomes RN , [facility], [address] [place] [address] 10/23/2015 11:30:25 10/23/2015 12:32:36 Adult health examination 961514291 Z00.00 see Risk Assessment and Lifestyle Change Counseling section above Hypothyroidism 75742825 E03.9 TSh today has been stable Psoriasis 6744699 L40.9 methotrexa te with Derm improving Counseling 520674679 Z71 .9 see HPI Obesity 367206357 E66.9 pt with active weight loss plan three serge follow up to assess and monitor could consider nutrition referral at that time if needed glucose has been high, mildly, on CMP screening at derm; will get A1C also lipid panel Osteoarthritis 852447868 M19.90 [facility], uses 1/2 dose Screening for malignant neoplasm of cervix 600378395 Z12.4 [id number] Milagro Taylor , [facility], [address] [place] [address] 12/04/2015 14:43:15 12/04/2015 15:35:49 Acute upper respiratory infection 84327181 J06.9 [id number] Darling Rocha MD , [facility], [address] [place] [address] 01/15/2016 16:57:34 01/15/2016 17:36:05 Hypothyroidism 51980513 E03.9 TSH in range wants to try to levothyrox ine instead of Altus will convert dosing has been stable Psoriasis 9874518 L40.9 methotrexa te with Derm improving needs labs Obesity 834104321 E66.9 pt with active weight loss plan three serge follow up to assess and monitor could consider nutrition referral at that time if needed glucose has been high, mildly, on CMP screening at [facility]; will get A1C also lipid panel Injury of knee 752020992 S80.921A recurrent right knee injury going to ortho Monday, known to them [id number] LAWRENCE Henning , [facility], [address] [place] [address] 02/02/2016 15:28:37 02/02/2016 16:26:30 Screening for disorder 909938178 Z11.59 Urinary tr act infectious disease 89408440 N39.0 No sign of infection on urine dipstick. Push fluids f/u if no improvemen t in 72 hours or for fever or back pain. [id number] Milagro Chris NP , [facility], [address] [place] [address] 05/19/2016 08:38:33 05/19/2016 09:25:42 Screening for malignant neoplasm of respiratory tract 372336272 Z12.2 Pt wishes to have low dose CT scan screening for lung cancer as she has > 30 pack years of smoking. Understand s she will be exposed to radiation, but at lower doses. Myofascial pain 47917724 9 M79.1 After spending almost 30 minutes discussing her respirator y issues and shingles vaccine, pt discussed the real reason she was here was intermitte nt unrelentin g myofacial pain and spasm in different muscle groups. Denies new meds or changes. Will check labs. Dyspnea 497123596 R06.00 Mild in mornings since spring on days with humid weather. Will check spirometry with nursing staff on another day to r/o copd as pt with > 40 year pack history [id number] Janki Scruggs, INSTRUCTOR LO[employer]ING[employer] [facility], [address] [place] [address] 05/28/2016 10:03:05 05/28/2016 14:31:40 Spasm of back muscles 866465698 M62.830 left scapular spasm, in setting of intermitte nt peripheral spasm, with no associated weakness, treat shoulder pain as written below, no concern for overuse or abuse of meds,coord inate with rheum re systemic symtpoms. Psoriasis 7807413 L40.9 managed by rheum in [facility] [id number] [facility], [address] [place] [address] 06/29/2016 09:33:46 06/29/2016 10:25:37 Active or passive immunization 777322228 Z23 Pt going to wait because she is on methotrexa te and will check with Derm first Spasm 11996614 R25.2 Pt with severe muscle spasm and pain, worse in arms and legs. Feels very washed out. Fingers clench. Degenerati ve joint disease involving multiple joints 582042930 M15.9 Multiple joint pain. Also has psoriasis and is on methotrexa te. Having alot of joint pain and muscle pain [id number] Yuriy Reece MD Rheumatol ogy, [facility] [address] [place] [address] 07/01/2016 08:52:26 07/04/2016 07:34:12 Spasm 15099765 R25.2 Chief complaint is prominent muscular spasms. [...] at low dose. Osteoarthr itis of knee 836321538 M17.0 Symptomati c. Gets steroid injections (Dr Mendieta). Osteoarthritis 416329938 M19.90 Degenerati ve arthritis of both knees, but also osteoarthr itic changes at several locations. Other than the knees, none of this is particular ly symptomati c at present. Psoriasis 5057745 L40.9 Followed by dermatolog y. On low-dose methotrexa te. No sign of psoriatic arthritis. Psoriasis, well controlled [id number] Darling Rocha MD , [facility], [address] [place] [address] 07/15/2016 16:48:21 07/15/2016 17:30:01 Osteoarthritis 360088769 M19.90 followed [facility], uses 1/2 dose Hypothyroidism 88033853 E03.9 TSH was in rangeconti nue samedoesn' t seem a factor in her pain Psoriasis 4728818 L40.9 methotrexa te with Derm improvings eeing them in coming monthsmedi cation makes her very tired Spasm 93527125 R25.2 unclear etiologydo es get some relief with Baclofen but feels that it is making her tired, so takes 5 mg every other nightshe is aware of weightdoes n't exerciseve ry stressed but feels the pain caused the stressshe has met with Dr Kellogg is now concerned more about neurologic al issuesthe picture is seeming more like fibromyalg ia with diffuse pain and fatigue, she feels this is no different than having chronic pain and fatigueshe will consider exercise after she cuts back on her workshe will consider miko chi in [facility] ndiscussed anti-infla mmatory diet Neuralgia 93453540 M79.2 mostly UEpt concerned carpel tunnel, has upper arm twinges as well, mostly at night, sides rotateno focal sxawaiting neurology evaluation , apt in September, on waiting listdoesn' t want new medication very stressed, aware of stress componenen tsupportiv e reassuranc e today Depressive disorder 3548 9007 F32.9 pt presents with sx of major depression related to physical healthdisc ussion today tx may help overall healthwant s therapydoe sn't want medication offered referrals to therapy here or acute visit with Dr Rios will talk with her friend who is a therapist to get an idea of who to seeno SI or self harm [id number] Darling Rocha MD , [facility], [address] [place] [address] 08/05/2016 15:17:27 08/05/2016 16:07:40 Hypothyroidism 64986122 E03.9 stable Osteoarthritis 642673731 M19.90 ongoing pain, saw Dr Mendieta, disenheart ened with visitother pain issues precluding considerat ion of TKR nowgot BL joint injections focussed on other pains Spasm 84295775 R25.2 ongoing, some relief, feels achy all the timesaw rheumuncle ar if could be fibromyalg ia at this point with ongoing vague and traveling constant achesI wonder if depression contributi ng Neuralgia 79979846 M79.2 neurology 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 vocational nursing instructor 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 time tricyclic or gabapentin at next visit Major depr essive disorder 867363872 F32.9 start tx todayenc therapy but so many obstaclesp t with very poor outlook, focusses on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
--- OUTSIDE RECORDS SUMMARY | 2024-10-23 15:26 | XMS_ITS | Clinical Summary ---
Author Organization [facility] Address [address] [place], [place] [id number] Care Team Providers Care Economic Adviser Name Role Phone Unavailable Primary Care Provider Unavailabl e Allergies Active Allergy Reactions Criticality Noted Date Comments Wound Dressings 08/09/2022 Epinephrine 02/12/2021 Sulfamethoxazole Nausea And Vomiting 09/13/2022 Tape 08/27/2019 Varenicline Other (See Comments) High 01/17/2022 Other reaction(s): EMOTIONAL DISCORD Medications Medication Sig Dispensed Refills Start Date End Date Status folic acid (FOLVITE) tablet 1 mg Orally 0 Active naproxen sodium (ALEVE) 220 MG tablet Take 1 tablet by mouth every 12 (twelve) hours as needed. 0 Active ustekinumab (STELARA) 45 MG/0.5ML subcutaneous injection Inject under the skin. 0 Active levothyroxine (SYNTHROID, LEVOXYL) tablet 100 mcg Take 100 mcg by mouth every morning on an empty stomach. 0 Active ibuprofen 600 MG tablet Take 600 mg by mouth every 6 (six) hours as needed. for pain 0 12/02/2020 Active omeprazole (PriLOSEC) 40 MG capsule 0 01/20/2021 Active linaclotide (Linzess) 145 MCG CAPS Take by mouth. 0 10/28/2021 Active lisinopril (PRINIVIL,ZESTRIL) tablet 10 mg Take 1 tablet (10 mg total) by mouth daily. 0 06/13/2022 Active metaxalone (SKELAXIN) 800 MG tablet Take 1 tablet (800 mg total) by mouth. 0 10/08/2021 Active aspirin EC 81 MG tablet Take 1 tablet (81 mg total) by mouth 2 (two) times a day. 84 tablet 0 08/08/2022 Active gabapentin (NEURONTIN) 300 MG capsule Take 1 capsule (300 mg total) by mouth every night at bedtime as needed. 30 capsule 1 08/08/2022 Active senna-docusate (PERICOLACE) 8.6-50 MG Take 2 tablets po at bedtime 60 tablet 1 08/08/2022 Active sulfamethoxazole-tr imethoprim (BACTRIM DS) 800-160 MG per tablet Take 1 tablet (160 mg of trimethoprim total) by mouth 2 (two) times a day. 0 08/05/2022 Active amoxicillin (AMOXIL) 500 MG tablet Take 4 tabs 1 hour prior to dental appointment 20 tablet 3 08/16/2022 Active oxyCODONE (ROXICODONE) 5 MG immediate release tablet Take 1 tab p.o. every 4 to 6 hours as needed for pain. May fill for lesser quantity. Status post knee replacement 40 tablet 0 08/16/2022 Active fluconazole (DIFLUCAN) 150 MG tablet TAKE 1 TABLET BY MOUTH ONCE 0 09/16/2022 Active Active Problems Problem Noted Date Diagnosed Date Encounter for postoperative wound check 08/24/20 22 Primary osteoarthritis of both knees 08/27/2019 Family History Medical History Relation Name Comments Cancer Mother Relation Name Status Comments Mother Social History Tobacco Use Types Packs/Day Years Used Date Smoking Tobacco: Never Assessed Sex and Gender Information Value Date Recorded Sex Assigned at Not on file Gender Identity Not on file Sexual Orientation Not on file Job Start Date Occupation Industry Not on file Not on file Not on file Last Filed Vital Signs Vital Sign Reading Time Taken Comments Blood Pressure - - Pulse - - Temperature - - Respiratory Rate - - Oxygen Saturation - - Inhaled Oxygen Concentration - - Weight 83.9 kg (185 lb) 02/12/2021 12:59 PM EDT Height 162.6 cm (5' 4 ) 02/12/2021 12:59 PM EDT Body Mass Index 31.76 02/12/2021 12:59 PM EDT Plan of Treatment Health Maintenance Due Date Last Done Comments Hepatitis C Screening 1954 Depression Screening 1966 BMI Counseling 1972 Preventative Health Evaluation 1972 Colon Cancer Screening (Colonoscopy) 1999 Breast Cancer Screening (Mammogram) 2004 Shingrix-Zoster Vaccine (1 of 2) 2004 Fall Risk Assessment 2019 Osteoporosis Screening (DEXA Scan) 2019 Pneumococcal Vaccine (2 of 2 - PCV) 10/10/2020 10/10/2019 COVID-19 Vaccine (4 - season) 2024 12/31/2021, 07/29/2021, 11/28/2020 Influenza Vaccine (#1) 2024 2, 07/27/2021, 07/11/2020, Additional history exists RSV Adult > 60+ Yrs or (1 - 1-dose 75+ series) 2029 DTap / Tdap / Td (4 - Td or Tdap) 05/08/2030 05/08/2020, 05/08/2020, 07/20/2012, Additional history exists Hepatitis B Vaccines Aged Out No long er eligible based on patient's age to complete this topic RSV Ped < 20 months Aged Out No longe r eligible based on patient's age to complete this topic
== END 2024-10-23 13:38 | disposition home or self-care (01) ==
PROVIDERS: PCP Family Medicine; Visit Provider Orthopaedic Surgery
DX: Z96.652 Presence of left artificial knee joint (principal)
CPT/HCPCS: 99024

== ENCOUNTER → 2024-10-23 13:19 | Outpatient (BNVA) | payer MEDICARE, SELFPAY | PROVIDERS: PCP Family Medicine; Visit Provider Orthopaedic Surgery | DX: Z47.1 Aftercare following joint replacement surgery (principal); Z96.652 Presence of left artificial knee joint | CPT/HCPCS: 99212 ==

== ENCOUNTER 2024-10-24 09:57 | Outpatient (REF) | payer MEDICARE, SELFPAY ==
--- OUTSIDE RECORDS SUMMARY | 2024-10-25 10:40 | XMS_ITS | Clinical Summary ---
Author Organization [facility] Address [address] [place], [place] [id number] Care Team Providers Care Card Boxer Name Role Phone Unavailable Primary Care Provider [...]
--- OUTSIDE RECORDS SUMMARY | 2024-10-25 10:41 | XMS_ITS | Data Portability ---
Author Organization [facility], [facility] Address [address] [place] [address] Care Team Providers Care Aircraft Instrument Repairer Name Role Phone DARLING ROCHA Primary Care Provider [phone] EZIO LONDON Gasoline Pump Mechanic CHIRAG REECE Sports Marketer MARCIO LOZADA Manager Motor Assessment Encounter Date Assessment Date Assessment LastModified [...] our office for worsening or urgent symptoms. [email or web address] Not available 05/04/2020 14:49:40 Plan of Treatment Reminders Order Date Submit Date Provider Last Modified By Organization Details Last Modified Time Details Appointments None recorded. Lab CBC 2019 020 [facility], [address] [place] [address], [address], 0 14:53:37 BMP, serum or plasma 2019 020 [facility], [address] [place] [address], [address], 0 12:02:28 vitamin D, 25-hydrox y, total, serum 2019 020 [facility], [address] [place] [address], [address], 0 12:20:02 MAURICIO (antinucl ear antibodie s) screen, ifa, serum 2019 020 [facility], [address] [place], [address], 0 15:32:59 Referral None recorded. Procedures None recorded. Surgeries None recorded. Imaging None recorded. Medication Orders clotrimaz ole-betam ethasone 1 %-0.05 % topical cream 2019 020 [facility]FACE [id number], [address] [place], [address], 0 14:22:06 Patient TargetsNo targets recorded. Patient Instructions Encounter Date Encounter Id Patient Instructions Last Modified By Organization Details Last Modified Time 02/18/2020 [id number] After a discussi on of treatment options, which included consideration of best practices and patient preferences, the following treatment plan and objectives were adopted: as above. [email or web address] Not available 02/18/2020 14:08:12 05/04/2020 [id number] After a discussi on of treatment and [...] / or use Purell or other hand private duty aide -Do not touch your face, eyes, nose, [...] concerns. [email or web address] Not available 05/04/2020 14:54:46 05/08/2020 [id number] Enc continue social distancing, frequent handwashing, cover [...] WBC 9.47 K/??L 3.98-1 0.04 Not Available [address], [address], 03/24/2020 14:53:37 03/24/2003/24/2020 CBC RBC 4.62 M/??L 3.93-5 .22 Not Available [address], [address], 03/24/2020 14:53:37 03/24/2003/24/2020 CBC HGB 13.9 g/dL 11.2-1 5.7 Not Available [address], [address], 03/24/2020 14:53:37 03/24/20 20 03/24/2020 CBC HCT 42.8 % 34.1-4 4.9 Not Available [address], [address], 03/24/2020 14:53:37 03/24/2003/24/2020 CBC MCV 92.6 fL 79.4-9 4.8 Not Available [address], [address], 03/24/2020 14:53:37 03/24/2003/24/2020 CBC MCH 30.1 pg 25.6-3 2.2 Not Available [address], [address], 03/24/2020 14:53:37 03/24/20 20 03/24/2020 CBC MCHC 32.5 g/dL 32.2-3 5.5 Not Available [address], [address], 03/24/2020 14:53:37 03/24/20 20 03/24/2020 CBC plt 331 K/??L 182-36 9 Not Available [address], [address], 03/24/2020 14:53:37 03/24/20 20 03/24/2020 CBC MPV 10.4 fL 9.4-12 .3 Not Available [address], [address], 03/24/2020 14:53:37 03/24/20 20 03/24/2020 CBC neut% 61.9 % 34.0-7 1.1 Not Available [address], [address], 03/24/2020 14:53:37 03/24/20 20 03/24/2020 CBC neut# 5.86 1.56-6 .13 Not Available [address], [address], 03/24/2020 14:53:37 03/24/20 20 03/24/2020 CBC lymph % 25.2 % 19.3-5 1.7 Not Available [address], [address], 03/24/2020 14:53:37 03/24/20 20 03/24/2020 CBC lymph # 2.39 K/??L 1.18-3 .74 Not Available [address], [address], 03/24/2020 14:53:37 03/24/20 20 03/24/2020 CBC mono% 7.6 % 4.7-12 .5 Not Available [address], [address], 03/24/2020 14:53:37 03/24/20 20 03/24/2020 CBC mono# 0.72 0.24-0 .56 high Not Available [address], [address], 03/24/2020 14:53:37 03/24/20 20 03/24/2020 CBC eo% 3.7 % 0.7-5. 8 Not Available [address], [address], 03/24/2020 14:53:37 03/24/20 20 03/24/2020 CBC eo# 0.35 0.04-0 .36 Not Available [address], [address], 03/24/2020 14:53:37 03/24/20 20 03/24/2020 CBC baso% 1.0 % 0.1-1. 2 Not Available [address], [address], 03/24/2020 14:53:37 03/24/20 20 03/24/2020 CBC baso# 0.09 0.00-0 .08 high Not Available [address], [address], 03/24/2020 14:53:37 03/24/20 20 03/24/2020 CBC RDW-CV 13.2 % 11.7-1 4.4 Not Available [address], [address], 03/24/2020 14:53:37 03/24/20 20 03/24/2020 CBC Ig% 0.600 % 0.000- 1.500 Ig % >0.5 Indic ates possi ble Left Shift Not Available [address], [address], 03/24/2020 14:53:37 03/24/20 20 03/24/2020 CBC Ig# 0.060 0.000- 0.093 Not Available [address], [address], 03/24/2020 14:53:37 03/24/20 20 03/24/2020 CBC NRBC% 0.0 % 0.0-0. 2 Not Available [address], [address], 03/24/2020 14:53:37 03/24/20 20 03/24/2020 CBC NRBC# 0.000 0.000- 0.012 Not Available [address], [address], 03/24/2020 14:53:37 03/24/20 20 03/25/2020 BMP, serum or plasm a glucose 145 mg/dL 70-100 high LIPG= Speci men Marke dly Lipem ic. Chem Resul ts may be effec deanna. Not Available [address], [address], 03/25/2020 12:02:28 03/24/20 20 03/25/2020 BMP, serum or plasm a BUN 10 mg/dL 7-18 Not Available [address], [address], 03/25/2020 12:02:28 03/24/2003/25/2020 BMP, serum or plasm a creatinine 0.8 mg/dL 0.8-1. 3 Not Available [address], [address], 03/25/2020 12:02:28 03/24/20 20 03/25/2020 BMP, serum or plasm a B/C 12.5 ratio Not Available [address], [address], 03/25/2020 12:02:28 03/24/20 20 03/25/2020 BMP, serum or plasm a GFR -non 80.6 mL/mi n Recom tanja d GFR by the Natio nal Kidne y Found ation >60 mL/mi n/1.7 3m2 - Na l <60 mL/mi n/1.7 3m2 - Chron ic Kidne y Disea se <15 mL/mi n/1.7 3m2 - Kidne y Failu re Not Available [address], [address], 03/25/2020 12:02:28 03/24/20 20 03/25/2020 BMP, serum or plasm a GFR - if 92.7 mL/mi n For Afric an Ameri can patie nts: Resul ts Multi plied by 1.21 Not Available [address], [address], 03/25/2020 12:02:28 03/24/20 20 03/25/2020 BMP, serum or plasm a sodium 144 mmol/ L 136-14 5 Not Available [address], [address], 03/25/2020 12:02:28 03/24/2003/25/2020 BMP, serum or plasm a potassium 3.7 mmol/ L 3.5-5. 1 Not Available [address], [address], 03/25/2020 12:02:28 03/24/2003/25/2020 BMP, serum or plasm a chloride 107 mmol/ L 96-107 Not Available [address], [address], 03/25/2020 12:02:28 03/24/2003/25/2020 BMP, serum or plasm a anion gap 11.8 5.0-15 .0 Not Available [address], [address], 03/25/2020 12:02:28 03/24/2003/25/2020 BMP, serum or plasm a CO2 25 mmol/ L 21-32 Not Available [address], [address], 03/25/2020 12:02:28 03/24/20 20 03/25/2020 BMP, serum or plasm a calcium 8.9 mg/dL 8.5-10 .3 Not Available [address], [address], 03/25/2020 12:02:28 03/24/2003/25/2020 TSH, serum or plasm a TSH 0.82 uIU/m L 0.50-6 .00 The Ameri can Colle ge of Endoc rinol ogy and Ameri can Thyro id Assoc iatio n recom mend goal TSH value s betwe en 0.4-4 .0 mIU/m L. Not Available [address], [address], 03/25/2020 12:20:01 03/24/20 20 03/25/2020 vitam in [...] er than 30 ng/mL . Not Available [address], [address], 03/25/2020 12:20:02 03/24/20 20 03/25/2020 AST/S GOT (aspa rtate amino trans feras e), serum or plasm a AST 25 U/L 0-37 LIPG= Speci dora Perez dly Lipem ic. Chem Resul ts may be effec deanna. Not Available [address], [address], 03/25/2020 12:46:25 03/24/20 20 03/25/2020 ALT (sara ine amino trans feras e), serum or plasm a ALT 49 U/L 6-63 Not Available [address], [address], 03/25/2020 12:46:26 03/24/20 20 03/25/2020 MAURICIO (anti [...] Patte rns (http [email or web address] [email or web address] g/10. 1515/ [facility]2017- 0052) For addit ional infor li yanes e refer to http: //[facility] adalberto santamaria.Que stDia gnost ics.c om/fa q/FAQ 177 (This link is being provi ded for infor rachna kaplan/ educspenser marie purpo ses only. ) Not Available [facility] [address] [place] [address], [place], [address], 03/25/2020 15:32:58 03/24/2003/25/2020 HbA1c (hemo globi n A1c), blood hemoglobin A1C 5.9 % 4.8-6. 0 Goal: <7% in Patie nts with Diabe barbie Not Available [address], [address], 03/25/2020 15:42:28 03/24/2003/25/2020 HbA1c (hemo globi n A1c), blood estimated average glucose 122.6 mg/dL Not Available [address], [address], 03/25/2020 15:42:28 Result Notes None recorded. Problems Name Problem SNOMED Code Status Onset Date Resolution Date Notes Provider Name and Address Organization Details Recorded Time Hypothyro idism 76831662 [place], [address], [facility] 6 10:34:37 Psoriasis 0081320 [place], [address], [facility] 6 17:39:38 Osteoarth ritis 256675525 [place], [address], [facility] 6 17:21:01 Vitamin D deficienc y 88423913 Active 2015 [place], [address], [facility] 6 12:18:54 Cobalamin deficienc y 799350570 Active 2015 [place], [address], [facility] 6 12:19:24 Ophthalmi c migraine 31778537 Active 2017 MD [place], [address], [facility] 8 12:49:07 Obesity 161429856 Active 2017 [place], [address], [facility] 8 10:43:25 Adenomato us polyp of colon 010597704 Active 2018 [place], [address], [facility] 9 12:38:22 Cyst of kidney 147437516 Active 2019 repeat US 11/2020 to assure no changes [place], [address], [facility] 0 08:56:05 Complicat ion of medical care 99412445 Completed 200708/14/2013 Darling Rocha MD [address] [place] [address] [place], [address], [facility] 6 17:21:01 Problem Notes None recorded. Procedures Surgical History Date Name Laterality Status Provider Name and Address Organization Details Recorded Time 05/08/20 20 Cerumen Removal - Irrigation/Lava ge completed Agatha Boles NP [address] [place] [address], [address], [facility] 05/08/2020 13:33:51 10/10/19 20 Cerumen Removal - Irrigation/Lava ge completed Nori Meadows RN [facility] 10/10/2019 14:57:52 05/04/20 19 POC Urinalysis Testing completed Bette Pardo MA [facility] 05/04/2019 11:23:15 11/21/19 19 POC Urinalysis Testing completed Swati Patricia MA [facility] 11/21/2018 11:38:48 08/28/20 18 Cerumen Removal - Irrigation/Lava ge completed Rita Ramos [facility] 08/28/2018 11:46:20 03/16/20 18 Cerumen Removal - Irrigation/Lava ge completed Yadira Finley MD [address] [place] [address], [address], [facility] 03/16/2018 15:02:34 01/06/20 18 [address]: Therapeutic Exercise completed Deirdre Trujillo, PT [address] [place], [address], [facility] 01/05/2018 13:09:35 01/06/20 18 [address]: Manual Therapy completed Deirdre Trujillo, PT [address] [place], [address], [facility] 01/05/2018 13:09:38 01/06/20 18 Treatment and Advice completed Deirdre Trujillo, PT [address] [place], [address], [facility] 01/05/2018 12:41:49 12/27/19 18 [address]0534: Therapeutic Exercise completed Deirdre Trujillo, PT [address] [place], [address], [facility] 12/26/2017 13:30:27 12/27/19 18 Treatment and Advice completed Deirdre Trujillo, PT [address] [place], [address], [facility] 12/26/2017 13:27:24 12/20/19 18 [address]67: Therapeutic Exercise completed Deirdre Trujillo, PT [address] [place], [address], [facility] 12/19/2017 15:39:43 12/20/19 18 Treatment and Advice completed Deirdre Trujillo, PT [address] [place], [address], [facility] 12/19/2017 14:56:59 12/13/19 18 Physical Activity Counselling completed Deirdre Trujillo, PT [address] [place], [address], [facility] 12/12/2017 15:27:42 12/13/19 18 [address]69: PT Eval, Moderate Complexity completed Deirdre Trujillo, PT [address] [place], [address], [facility] 12/12/2017 15:27:38 12/13/19 18 Treatment and Advice completed Deirdre Trujillo, PT [address] [place], [address], [facility] 12/12/2017 14:31:02 09/23/20 16 Cerumen Removal - Irrigation/Lava ge completed Isabella Pulido LPN [facility] 09/23/2016 11:49:35 02/02/20 16 POC Urinalysis Testing completed Jory Vallecillo LPN [facility] 02/02/2016 16:08:03 Imaging Results None recorded. Procedure Notes None recorded. Medical Equipment None Reported. Allergies Allergen ID Allergen Name Allergen Category Reaction Reaction Severity Criticality Documentation Date Start Date Code Code System Note Provider Name and Address Organization Details Recorded Time 843910 meloxicam medicatio n Not available Not available Not available 04/09/2015 14996 RxNorm Too drows y. Milagro Chris, TOMAS [address] [facility], [place], [address] , [facility] 5 12:03:16 899399 epinephri ne medicatio n Not available Not available Not available 07/22/2015 3992 RxNorm pt has had & has been o.k. but had & got jitte ry & rash the next day. Patricia Awad [facility] 6 11:50:09 952611 Chantix medicatio n Not available Not available Not available 07/22/2015 08[address] Juan F Nevarez [facility] 5 12:17:50 169937 doxycycli ne Not available nausea Not available Not available 09/19/2018 3640 RxNorm Christie Moser [facility] 8 15:44:39 Medications Name Sig [...] Not Available Not Available No t Available Cable Thyroid 15 mg tablet TAKE 4 TABLETS [...] DateTime 02/18/2020 162.56 cm Darling Rocha MD [address] [place] [address], [address], [facility] 02/18/2020 14:08:31 Date Recorded Body mass index (BMI) Body weight Provider Name and Address Organization Details Last Updated DateTime 02/18/2020 32.6 kg/m2 70361.55 g Darling Rocha MD [address] [place] [address], [address], [facility] 02/18/2020 14:08:40 Date Recorded Body height Provider Name an d Address Organization Details Last Updated DateTime 05/08/2020 162.56 cm Juan F Nevarez MA [facility] 05/08/2020 12:21:06 Date Recorded Body mass index (BMI) Body weight Provider Name and Address Organization Details Last Updated DateTime 05/08/2020 33.7 kg/m2 58335.5 g Juan F Nevarze MA [facility] 05/08/2020 12:21:18 Date Recorded Body temperature Provider Name a nd Address Organization Details Last Updated DateTime 05/08/2020 97.8 [degF] Juan F Nevarez MA [facility] 05/08/2020 12:21:36 Date Recorded Heart rate Provider Name an d Address Organization Details Last Updated DateTime 05/08/2020 68 /min Juan F Nevarez MA [facility] 05/08/2020 12:21:38 Date Recorded Systolic blood pressure Diastolic blood pressure Provider Name and Address Organization Details Last Updated DateTime 05/08/2020 136 mm[Hg] 84 mm[Hg] Juan F Nevarez MA [facility] 05/08/2020 12:21:28 Social History Question Answer Notes LastModified by Organization Details LastModified Time Tobacco Smoking Status Former Smoker quit 8yrs ago-04/09/15, smoked for 30 yrs, smoked 1-2 PPD RODRIGO Singer [facility] 04/09/2015 11:51:45 What Is Your Level Of [...] not available 10/23/2015 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 No Information not available 04/09/2015 Does The Patient Have Difficulty Reading Haitian? No Information not available 04/09/2015 Patient Has [...] 10/12/2019 02:34:17 Tdap 2 completed RODRIGO Steven [facility] 05/12/2015 08:52:35 influenza, unspecified formulation 3 completed RODRIGO Reeves [facility] 07/22/2015 12:16:56 Td(adult) unspecified formulation 7 completed RODRIGO Reeves [facility] 07/22/2015 12:16:56 Influenza, split virus, quadrivalent, preservative 6 completed Karen Alcaraz RMSpenser null, [facility] 07/15/2016 17:00:35 Influenza, split virus, quadrivalent, PF 9 completed Not Available [facility] 10/12/2019 02:29:22 pneumococcal polysaccharide PPV23 0 completed Not Available [facility] 10/12/2019 02:40:15 influenza, unspecified formulation 8 completed Christie Moser null, [facility] 09/19/2018 15:50:42 Td (adult), 2 Lf tetanus toxoid, preservative free, adsorbed 0 completed Nori Meadows RN null, [facility] 05/08/2020 15:36:28 Influenza, high-dose, quadrivalent, PF 0 completed OC MontillaRMSpenser [facility], [facility] 07/11/2020 11:24:54 Past Encounters Encounter ID Performer Location Encounter Start Date Encounter Closed Date Diagnosis/Indication Diagnosis SNOMED-CT Code Diagnosis ICD10 Code Diagnosis Note [id number] [facility], [facility] [address] [place] [address] 02/12/2008 15:45:42 10/15/2008 02:02:29 [id number] [facility] [address] [place] [address] 04/28/2008 15:25:26 10/15/2008 02:02:29 [id number] Milagro Chris NP , [facility], [address] [place] [address] 04/09/2015 11:31:06 04/09/2015 12:32:46 Psoriasis 8454204 New pt establishi ng with the practice. [...] her dose if she is ill. Hypothyroidism 18516287 [id number] Sam Lewis , [facility], [address] [place] [address] 05/01/2015 16:23:27 05/01/2015 17:21:30 Psoriasis 3507550 Cutaneous psoriasis, previously followed by Dermatolog y [...] MTX reviewed. Check CBC and CMP. Hypothyroidism 72469087 Was told TSH was normal in December-January 2015 during her physical. Denies any previous intoleranc e to Levothyrox ine. Records requested. [id number] Charlene Gomes RN , [facility], [address] [place] [address] 10/23/2015 11:30:25 10/23/2015 12:32:36 Adult health examination 473188607 Z00.00 see Risk Assessment and Lifestyle Change Counseling section above Hypothyroidism 39082453 E03.9 TSh today has been stable Psoriasis 9555480 L40.9 methotrexa te with Derm improving Counseling 449292558 Z71 .9 see HPI Obesity 921722783 E66.9 pt with active weight loss plan three serge follow up to assess and monitor could consider nutrition referral at that time if needed glucose has been high, mildly, on CMP screening at derm; will get A1C also lipid panel Osteoarthritis 756946716 M19.90 [facility], uses 1/2 dose Screening for malignant neoplasm of cervix 346367459 Z12.4 [id number] Milagro Taylor , [facility], [address] [place] [address] 12/04/2015 14:43:15 12/04/2015 15:35:49 Acute upper respiratory infection 86577971 J06.9 [id number] Darling Rocha MD , [facility], [address] [place] [address] 01/15/2016 16:57:34 01/15/2016 17:36:05 Hypothyroidism 76531921 E03.9 TSH in range wants to try to levothyrox ine instead of Cable will convert dosing has been stable Psoriasis 0439005 L40.9 methotrexa te with Derm improving needs labs Obesity 966686326 E66.9 pt with active weight loss plan three serge follow up to assess and monitor could consider nutrition referral at that time if needed glucose has been high, mildly, on CMP screening at [facility] will get A1C also lipid panel Injury of knee 392169773 S80.921A recurrent right knee injury going to ortho Monday, known to them [id number] LAWRENCE Henning , [facility], [address] [place] [address] 02/02/2016 15:28:37 02/02/2016 16:26:30 Screening for disorder 370094745 Z11.59 Urinary tr act infectious disease 29159700 N39.0 No sign of infection on urine dipstick. Push fluids f/u if no improvemen t in 72 hours or for fever or back pain. [id number] Milagro Chris NP , [facility], [address] [place] [address] 05/19/2016 08:38:33 05/19/2016 09:25:42 Screening for malignant neoplasm of respiratory tract 208008338 Z12.2 Pt wishes to have low dose CT scan screening for lung cancer as she has > 30 pack years of smoking. Understand s she will be exposed to radiation, but at lower doses. Myofascial pain 98024019 9 M79.1 After spending almost 30 minutes discussing her respirator y issues and shingles vaccine, pt discussed the real reason she was here was intermitte nt unrelentin g myofacial pain and spasm in different muscle groups. Denies new meds or changes. Will check labs. Dyspnea 655657559 R06.00 Mild in mornings since spring on days with humid weather. Will check spirometry with nursing staff on another day to r/o copd as pt with > 40 year pack history [id number] Janki Scruggs, [employer] [facility], [address] [place] [address] 05/28/2016 10:03:05 05/28/2016 14:31:40 Spasm of back muscles 914936185 M62.830 left scapular spasm, in setting of intermitte nt peripheral spasm, with no associated weakness, treat shoulder pain as written below, no concern for overuse or abuse of meds,coord inate with rheum re systemic symtpoms. Psoriasis 0170006 L40.9 managed by rheum in [facility] [id number] [facility], [address] [place] [address] 06/29/2016 09:33:46 06/29/2016 10:25:37 Active or passive immunization 174774861 Z23 Pt going to wait because she is on methotrexa te and will check with Derm first Spasm 18323532 R25.2 Pt with severe muscle spasm and pain, worse in arms and legs. Feels very washed out. Fingers clench. Degenerati ve joint disease involving multiple joints 265278939 M15.9 Multiple joint pain. Also has psoriasis and is on methotrexa te. Having alot of joint pain and muscle pain [id number] Yuriy Reece MD Rheumatol ogy, [facility] [address] [place] [address] 07/01/2016 08:52:26 07/04/2016 07:34:12 Spasm 28162777 R25.2 Chief complaint is prominent muscular spasms. [...] at low dose. Osteoarthr itis of knee 512318570 M17.0 Symptomati c. Gets steroid injections (Dr Mendieta). Osteoarthritis 849397564 M19.90 Degenerati ve arthritis of both knees, but also osteoarthr itic changes at several locations. Other than the knees, none of this is particular ly symptomati c at present. Psoriasis 1765306 L40.9 Followed by dermatolog y. On low-dose methotrexa te. No sign of psoriatic arthritis. Psoriasis, well controlled [id number] Darling Rocha MD , [facility], [address] [place] [address] 07/15/2016 16:48:21 07/15/2016 17:30:01 Osteoarthritis 898524241 M19.90 followed [facility], uses 1/2 dose Hypothyroidism 13758654 E03.9 TSH was in rangeconti nue samedoesn' t seem a factor in her pain Psoriasis 6554934 L40.9 methotrexa te with Derm improvings eeing them in coming monthsmedi cation makes her very tired Spasm 36474177 R25.2 unclear etiologydo es get some relief [...] her workshe will consider miko chi in [facility] ndiscussed anti-infla mmatory diet Neuralgia 94758544 M79.2 mostly UEpt concerned carpel tunnel, has [...] therapy here or acute visit with Dr iRos will talk with her friend who is a therapist to get an idea of who to seeno SI or self harm [id number] Darling Rocha MD , [facility], [address] [place] [address] 08/05/2016 15:17:27 08/05/2016 16:07:40 Hypothyroidism 03572813 E03.9 stable Osteoarthritis 036543990 M19.90 ongoing pain, saw Dr Mendieta, disenheart ened with visitother pain issues precluding considerat ion of TKR nowgot BL joint injections focussed on other pains Spasm 09374000 R25.2 ongoing, some relief, feels achy all the timesaw rheumuncle ar if could be fibromyalg ia at this point with ongoing vague and traveling constant achesI wonder if depression contributi ng Neuralgia 53391706 M79.2 neurology 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 tricyclic or gabapentin at next visit Major depr essive disorder 528153309 F32.9 start tx todayenc therapy but so many obstaclesp t with very poor outlook, focusses on obstaclesd iscussed leave from work or ST disability given the correltati on with her sxclose f/u one monthdiscu [place]sed [place] [id number] Darling Rocha MD , [facility], [address] [place] [address] 09/23/2016 10:49:51 09/23/2016 11:48:30 Hypothyroidism 56936231 E03.9 stable Spasm 69989701 R25.2 resolved with stopping methotrexa te Neuralgia 73995728 M79.[address] Linton are improved with tx Vit D and B12 Major depr essive disorder 140026981 F32.9 stopped tx, wants to wait for tx of Vit D and B12 deficiency pt is quite anxiousshe has good reason but I feel there is more symptomato logy that could benefit from tx and will talk with her again at f/uenc to find therapist, she agrees this is a good idea but hasn't had time Psoriasis 4237840 L40.9 off methotrexa teworsenin gfinding relief in her sx off methotrexa tewill be exploring other options for tx Vitamin D deficiency 347 72946 E55.9 being txsx are improvingf /u 2 months to assure absorbing Cobalamin deficiency 190 827244 E53.8 being txsx are improving Impacted cerumen 3792656 6 H61.23 irrigation todayadvis ed f/u derm re tx psoriasis in canals as pt has mutliple tx she changes up [id number] Darling Rocha MD , [facility], [address] [place] [address] 12/27/2016 14:29:28 12/27/2016 15:29:59 Adult health examination 229604698 Z00.00 see Risk Assessment and Lifestyle Change Counseling section above Vitamin D deficiency 347 23340 E55.9 repeat screeningp t continues to supplement some ongoing fatigue Osteoarthritis 662285051 M19.90 ongoing issues with joint paincortis one helpful kneesrecen t injury at work, told degenerati ve disease in her cervical vertebraew ill be doing PT at work Hypothyroidism 02783209 E03.9 poor compliance with medsTSH borderline for tx Psoriasis 7311462 L40.9 follows with dermcurren tly managing without meds Obesity 676389563 E66.9 active weight loss plantaking better care than ever in the pastf/u six monthscont inue planscreen ing yqccU2N as 6.1 last year Screening mammography 24 908008 Z12.31 Candidiasis of skin 4988 3006 B37.2 has tried various txwill give prescripti on powderdoes n't like creams, feel it gets worsederm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
== END 2024-10-24 09:58 | disposition home or self-care (01) ==
LOC: HO.HOSX 09:57
PROVIDERS: Visit Provider Physician Assistant
DX: Z13.89 Encounter for screening for other disorder (principal)

== ENCOUNTER 2024-10-30 08:58 | Outpatient (REF) | payer MEDICARE, SELFPAY ==
--- NOTE | ~2024-10-30 | XR_ITS ---
EXAMINATION: XR KNEE, LEFT CLINICAL INFORMATION: M25.562 - Pain in left knee COMPARISON: October 03, 2024. TECHNIQUE: Four views of the left knee. FINDINGS: There is a metallic prosthesis with a femoral and tibial component well-seated in the osseous structures without gross malalignment or acute cortical disruption. Skin annabelle in the upper patella soft tissues and extending in the distal thigh and proximal calf. Vascular calcifications. XR/XR knee LT 3V IMPRESSION: Status post total left knee arthroplasty procedure, intact and satisfactory alignment. Electronically signed by: Curt Hopson MD 10/30/2024 03:51 PM YONI LEOS
--- OUTSIDE RECORDS SUMMARY | 2024-11-01 09:20 | XMS_ITS | Clinical Summary ---
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
== END 2024-10-30 08:59 | disposition home or self-care (01) ==
LOC: HO.HOSX 08:58
PROVIDERS: Visit Provider Orthopaedic Surgery
DX: M25.562 Pain in left knee (principal); Z96.652 Presence of left artificial knee joint
CPT/HCPCS: 73562; 99212

== ENCOUNTER → 2024-10-30 11:45 | Outpatient (BNV) | payer MEDICARE, SELFPAY | PROVIDERS: Visit Provider Radiology Diagnostic Radiology | DX: M25.562 Pain in left knee (principal) | CPT/HCPCS: 73562 ==

== ENCOUNTER 2024-11-20 12:51 | Outpatient (AMB) | payer MEDICARE, SELFPAY ==
[2024-11-20 13:00] VITALS: BMI 27.2
--- NOTE | 2024-11-20 13:00 | MHC.OFFVIS ---
Vital Signs 11/20/24 13:00 Height 5 ft 3.5 in Weight 156 lb BMI 27.2 Intake Visit Reasons: Left total knee replacement surgery Intake Note: Lucrecia is a 69 year old female who presents for follow-up after undergoing left total knee replacement surgery on 10/07/2024. The patient reports mild intermittent discomfort in her left knee. She continues with her physical therapy exercises. The patient states that she did notice a small scab along the proximal aspect of her incision. She denies any drainage. Allergies adhesive tape Allergy (Intermediate, Verified 11/20/24 13:02) Rash (from band aids/medicine patches) Sulfa (Sulfonamide Antibiotics) Allergy (Intermediate, Verified 11/20/24 13:02) Vomiting epinephrine Allergy (Mild, Verified 11/20/24 13:02) Shakiness varenicline [From Chantix] Adverse Reaction (Intermediate, Verified 11/20/24 13:02) emotional discord Medication List - Last Reconciled 11/20/24 by Quintin Préez MD acetaminophen 650 mg (2 x 325 mg) PO Q6H PRN 30 days acidophilus-pectin, citrus 100 million cell-10 mg 1 cap PO DAILY aspirin 325 mg PO BID 42 days celecoxib 200 mg PO BID 30 days docusate sodium 100 mg PO BID 14 days fluconazole 150 mg PO ONCE gabapentin 100 mg PO BEDTIME 7 days methocarbamol 500 mg PO BEDTIME 7 days multivitamin 1 tab PO DAILY omeprazole 40 mg PO BID@0630,1630 oxycodone 5 mg PO Q4H PRN 7 days ustekinumab (Stelara) 45 mg subcut Q12W walker Folding front wheeled walker zoledronic qjzp-rkqpkgvs-qltze 5 mg/100 mL (Reclast) 1 ea IV [id number] PFSH Medical History Anxiety Pneumonia Fracture, ribs White coat syndrome without diagnosis of hypertension Vertebral compression fracture Osteoporosis Psoriasis Osteoarthritis Ocular migraine Hypertriglyceridemia Hypothyroid Dysphagia GERD (gastroesophageal reflux disease) Surgical History Hx of bilateral cataract extraction H/O colonoscopy Hx of arthroscopy of left knee History of esophagogastroduodenoscopy (EGD) History of tonsillectomy and adenoidectomy History of History of total right knee replacement (TKR) Family History Mother Lung cancer Liver cancer Sister Hypertension Sister Multiple sclerosis Social History Household Members: Spouse Housing: House Are you a primary healthcare economics manager to a significant other at home: No Do you presently have visiting nurse or other home services: No Alcohol intake: current Alcohol intake frequency: holidays/special occasions only Patient Tobacco Use Status: Former Tobacco user Tobacco use type: Cigarette Years Smoked: 30 service: No Current occupational status: employed and retired Current occupation: [employer] Physical Exam Vital Signs: BMI result Body Mass Index 27.2 Extrem Other: Left knee examination shows that the surgical incision is healing well, there is a small eschar along the proximal aspect of the incision measuring approximately 2 mm x 4 mm, no visual suture material, no drainage, full active extension and flexion to 115 degrees, her patella tracks well Assessment & Plan Assessment & Plan (1) History of total left knee replacement: Code(s): Z96.652 - Presence of left artificial knee joint Category: Medical Plan: Ms. Prieto continues to do well after undergoing left total knee replacement surgery on 10/07/2024. She does have a small eschar along the proximal aspect of her incision with no signs of infection. The patient is instructed to keep a dressing over the eschar. She will continue with her physical therapy exercises. She does know to take antibiotics before any dental work. She will contact me prior to her follow-up appointment in 3-4 weeks should any questions or concerns arise. Feel free to call me at any time should questions regarding her orthopedic management arise. Coding Level of Care Code Global (87427) Diagnoses History of total left knee replacement Z96.652
--- OUTSIDE RECORDS SUMMARY | 2024-11-20 15:44 | XMS_ITS | Clinical Summary ---
Author Organization [facility] Address [address] [place], [place] [id number] Care Team Providers Care Teacher Aide Name Role Phone Unavailable Primary Care Provider [...]
== END 2024-11-20 13:25 | disposition home or self-care (01) ==
PROVIDERS: Visit Provider Orthopaedic Surgery
DX: Z96.652 Presence of left artificial knee joint (principal)
CPT/HCPCS: 99024

== ENCOUNTER → 2024-11-20 12:51 | Outpatient (BNVA) | payer MEDICARE, SELFPAY | PROVIDERS: Visit Provider Orthopaedic Surgery | DX: Z47.1 Aftercare following joint replacement surgery (principal); Z96.652 Presence of left artificial knee joint | CPT/HCPCS: 99212 ==

== ENCOUNTER 2024-12-18 14:26 | Outpatient (AMB) | payer MEDICARE, SELFPAY ==
--- NOTE | 2024-12-18 14:32 | MHC.OFFVIS ---
Intake Visit Reasons: PO- Left TKA 10/07/24 Intake Note: Pratibha is a 69 year old female who presents for follow-up after undergoing left total knee replacement surgery on 10/07/2024. Allergies adhesive tape Allergy (Intermediate, Verified 12/18/24 14:32) Rash (from band aids/medicine patches) Sulfa (Sulfonamide Antibiotics) Allergy (Intermediate, Verified 12/18/24 14:32) Vomiting epinephrine Allergy (Mild, Verified 12/18/24 14:32) Shakiness varenicline [From Chantix] Adverse Reaction (Intermediate, Verified 12/18/24 14:32) emotional discord Medication List - Last Reconciled 12/18/24 by Quintin Pérez MD acetaminophen 650 mg (2 x 325 mg) PO Q6H PRN 30 days acidophilus-pectin, citrus 100 million cell-10 mg 1 cap PO DAILY aspirin 325 mg PO BID 42 days celecoxib 200 mg PO BID 30 days docusate sodium 100 mg PO BID 14 days fluconazole 150 mg PO ONCE gabapentin 100 mg PO BEDTIME 7 days methocarbamol 500 mg PO BEDTIME 7 days multivitamin 1 tab PO DAILY omeprazole 40 mg PO BID@0630,1630 oxycodone 5 mg PO Q4H PRN 7 days ustekinumab (Stelara) 45 mg subcut Q12W walker Folding front wheeled walker zoledronic zrxq-xqejfhjs-jfcxh 5 mg/100 mL (Reclast) 1 ea IV [id number] PFSH Medical History Anxiety Pneumonia Fracture, ribs White coat syndrome without diagnosis of hypertension Vertebral compression fracture Osteoporosis Psoriasis Osteoarthritis Ocular migraine Hypertriglyceridemia Hypothyroid Dysphagia GERD (gastroesophageal reflux disease) Surgical History Hx of bilateral cataract extraction H/O colonoscopy Hx of arthroscopy of left knee History of esophagogastroduodenoscopy (EGD) History of tonsillectomy and adenoidectomy History of History of total right knee replacement (TKR) Family History Mother Lung cancer Liver cancer Sister Hypertension Sister Multiple sclerosis Social History Household Members: Spouse Housing: House Are you a primary patient care provider to a significant other at home: No Do you presently have visiting nurse or other home services: No Alcohol intake: current Alcohol intake frequency: holidays/special occasions only Patient Tobacco Use Status: Former Tobacco user Tobacco use type: Cigarette Years Smoked: 30 service: No Current occupational status: employed and retired Current occupation: [employer]
--- NOTE | 2024-12-18 14:40 | A.OFFVIS_ITS ---
Intake Visit Reasons: PO- Left TKA 10/07/24 Intake Note: Pratibha presents with complaints of mild intermittent discomfort in her left knee after undergoing left total knee replacement surgery on 10/07/2024. She continues with her home therapy exercises. She has completed formal physical therapy. She denies any fevers or chills. Allergies adhesive tape Allergy (Intermediate, Verified 12/18/24 14:32) Rash (from band aids/medicine patches) Sulfa (Sulfonamide Antibiotics) Allergy (Intermediate, Verified 12/18/24 14:32) Vomiting epinephrine Allergy (Mild, Verified 12/18/24 14:32) Shakiness varenicline [From Chantix] Adverse Reaction (Intermediate, Verified 12/18/24 14:32) emotional discord Medication List - Last Reconciled 12/18/24 by Quintin Pérez MD acetaminophen 650 mg (2 x 325 mg) PO Q6H PRN 30 days acidophilus-pectin, citrus 100 million cell-10 mg 1 cap PO DAILY aspirin 325 mg PO BID 42 days celecoxib 200 mg PO BID 30 days docusate sodium 100 mg PO BID 14 days fluconazole 150 mg PO ONCE gabapentin 100 mg PO BEDTIME 7 days methocarbamol 500 mg PO BEDTIME 7 days multivitamin 1 tab PO DAILY omeprazole 40 mg PO BID@0630,1630 oxycodone 5 mg PO Q4H PRN 7 days ustekinumab (Stelara) 45 mg subcut Q12W walker Folding front wheeled walker zoledronic vwlv-xbdrwmnq-etlfd 5 mg/100 mL (Reclast) 1 ea IV [id number] PFSH Medical History Anxiety Pneumonia Fracture, ribs White coat syndrome without diagnosis of hypertension Vertebral compression fracture Osteoporosis Psoriasis Osteoarthritis Ocular migraine Hypertriglyceridemia Hypothyroid Dysphagia GERD (gastroesophageal reflux disease) Surgical History Hx of bilateral cataract extraction H/O colonoscopy Hx of arthroscopy of left knee History of esophagogastroduodenoscopy (EGD) History of tonsillectomy and adenoidectomy History of History of total right knee replacement (TKR) Family History Mother Lung cancer Liver cancer Sister Hypertension Sister Multiple sclerosis Social History Household Members: Spouse Housing: House Are you a primary cardiac care unit nurse to a significant other at home: No Do you presently have visiting nurse or other home services: No Alcohol intake: current Alcohol intake frequency: holidays/special occasions only Patient Tobacco Use Status: Former Tobacco user Tobacco use type: Cigarette Years Smoked: 30 service: No Current occupational status: employed and retired Current occupation: [employer] Physical Exam Extrem Other: Left knee examination shows that the surgical incision is well healed, no erythema, full active extension and flexion to 125 degrees, her patella tracks well Assessment & Plan Assessment & Plan (1) Left knee pain: Code(s): M25.562 - Pain in left knee Category: Medical Plan Ms. Prieto continues to do very well after undergoing left total knee replacement surgery on 10/07/2024. She will continue with her home exercise program. She will contact me prior to her follow-up appointment in 3 months should any questions or concerns arise. Feel free to call me at any time should questions regarding her orthopedic management arise. Coding Level of Care Code Global (48544) Diagnoses Left knee pain M25.562
--- OUTSIDE RECORDS SUMMARY | 2024-12-18 17:20 | XMS_ITS | Continuity of Care Document ---
Author Organization [facility] Address [address] [place] [address]- Care Team Providers Care Locker Plant Attendant Name Role Phone Jose Carlos MAYES, Meredith Lindsey Primary Care Physic dariusz [facility] Date[facility]24 [facility] [address] [place], [place] [address] Encounter Type: Triage Allergies, Adverse Reactions, Alerts [...] vaccine, inactivated 1 06/13/11 Gi dede SARS-CoV-2(COVID-19)mRNA-LNP vac([id number]) 07/09/23 Recorded [id number] 12y+ bivalent booster vax 06/17/22 Recorded SARS-CoV-2 mRNA (ucotpst-ruqj-zbiyn) vax 12/31/21 Recorded SARS-CoV-2 (COVID-19) mRNA BNT-162b2 [...] VIS GIVEN 3Admin Note: VIM 08/12/08 Medications aspirin 325 mg oral tablet TAKE 1 TABLET BY MOUTH TWICE A DAY FOR 42 DAYS Start Date: 11/14/24 Status: Ordered Repeat number: 1 atorvastatin 40 mg oral tablet 1 tablet = 40 mg, By Mouth, Daily, TAKE 1 TABLET BY MOUTH NIGHTLY AT BEDTIME, # 90 tablet, 1 Refills, Maintenance, 11/14/24 4:03:00 PM EST, Tablet, [facility]/pharmacy #[id number], Partial fill upon patient request if the prescription is for a schedule II opioid drug., 163, cm, 11/14/24 15:43:00 EST, Height, 70.5, kg, 06/25/24 10:34:00 EDT, Dry Weight Start Date: 11/14/24 Status: Ordered Quantity: 90.0 Unit: tablet Repeat number: 2 betamethasone-clotrimazole 0.05%-1% topical cream 1 application, Topically, [...] Maintenance, 05/13/24 9:05:00 AM EDT, EC Capsule, [facility]/pharmacy #[id number], Partial fill upon patient request if [...] Date: 01/02/24 Status: Ordered Repeat number: 1 vancomycin 125 mg oral capsule See Instructions, 1 capsule By Mouth 4 times a day for 14 days then BID x 7d, then daily x 7 days then every 3 days for 4 weeks., # 87 capsule, 0 Refills, Acute 02/23/25 5:50:00 PM EDT, 12/04/24 5:45:00PM EDT, Capsule, [id number], Partial fill upon patient request if the prescription is for aschedule II opioid drug., 163, cm, 12/02/24 10:52:00 EDT, Height, 70.5, kg, 06/25/24 10:34:00 EDT, Dry Weight Start Date: 12/04/24 Stop Date: 02/23/25 Status: Ordered Quantity: 87.0 Unit: capsule Repeat number: 1 Vitamin D3 By Mouth, [...] Name: Jose Carlos MAYES, Meredith Lindsey Position: [facility] Physician - Primary Care Member Role: PCP Address: [address] [place] [address] Telecom: Care Team Related Persons Name: PAUL VIDALES Name: EZIO VIDALES Insurance Providers Guarantor name: ALEE VIDALES Health Plan Information #: 1 Payer: MEDICARE PART B OUTPT Member Number: NA Policy Number: NA Group Number: NA Health Plan Information #: 2 Payer: MEDEX Member Number: NA Policy Number: NA Group Number: NA
--- OUTSIDE RECORDS SUMMARY | 2024-12-18 17:20 | XMS_ITS | Continuity of Care Document ---
Author Organization [facility] Address [address] [place] [address] Care Team Providers Care Police District Switchboard Operator Name Role Phone Jose Carlos MAYES, Meredtih Lindsey Primary Care Physic dariusz Encounter [facility] Date(s): 10/25/24 - 11/24/24 [facility] [address] [place] [address] Attending Physician: Alonso Melton Admitting Physician: AdmtrAlonso Referring Physician: Admtr, ArTravis Encounter Type: Triage Allergies, Adverse Reactions, Alerts [...] vaccine, inactivated 1 06/13/11 Gi dede SARS-CoV-2(COVID-19)mRNA-LNP vac([id number]) 07/09/23 Recorded [id number] 12y+ bivalent booster vax 06/17/22 Recorded SARS-CoV-2 mRNA (bfzxpgg-ntbz-pmypg) vax 12/31/21 Recorded SARS-CoV-2 (COVID-19) mRNA BNT-162b2 [...] Refills, Maintenance, 11/14/24 4:03:00 PM EST, Tablet, [id number], Partial fill upon patient request [...] Maintenance, 05/13/24 9:05:00 AM EDT, EC Capsule, [facility]/pharmacy #[id number], Partial fill upon patient request if [...] Name: Jose Carlos MAYES, Meredith Lindsey Position: [facility] Physician - Primary Care Member Role: PCP Address: [address] [place] [address] Telecom: Care Team Related Persons Name: PAUL VIDALES Name: EZIO VIDALES Insurance Providers Guarantor name: ALEE GOLDMADELEINE Health Plan Information #: 1 Payer: MEDICARE PART B OUTPT Member Number: NA Policy Number: NA Group Number: NA Health Plan Information #: 2 Payer: MEDEX Member Number: NA Policy Number: NA Group Number: NA
--- OUTSIDE RECORDS SUMMARY | 2024-12-18 17:20 | XMS_ITS | Continuity of Care Document ---
Author Organization [facility] Address [address] [place] [address]- Care Team Providers Care Custodial Manager Name Role Phone Jose Carlos MAYES, Meredith Lindsey Primary Care Physic dariusz Encounter [facility] Date(s): 11/14/24 - 11/21/24 [facility] [address] [place] [address]- Attending Physician: Meredith Branch MD Encounter Type: Office Visit Allergies, Adverse [...] vaccine, inactivated 1 06/13/11 Gi dede SARS-CoV-2(COVID-19)mRNA-LNP vac(qsc529) 07/09/23 Recorded [id number] 12y+ bivalent booster vax 06/17/22 Recorded SARS-CoV-2 mRNA (uoxnfat-vxau-tdjhj) vax 12/31/21 Recorded SARS-CoV-2 (COVID-19) mRNA BNT-162b2 [...] Maintenance, 05/13/24 9:05:00 AM EDT, EC Capsule, [facility]/pharmacy #[id number], Partial fill upon patient request [...] Most recent to oldest [Reference Range]: 1 2 Height 163 cm (11/14/24 3:43 PM) 163 cm (11/14/24 3:31 PM) Weight 70.9 kg (11/14/24 3:31 PM) Oxygen Saturation [94-100 %] 98 % (11/14/24 3:31 PM) Pulse Rate [55-90 bpm] 73 bpm (11/14/24 3:31 PM) Body Mass Index [18.5-24.99 kg/m2] 26.69 kg/m2 *H* (11/14/24 3:31 PM) Blood Pressure [90-138/55-84 mm Hg] 110/ 77mm Hg (11/14/24 3:43 PM) 143/84mm Hg *H* (11/14/24 3:31 PM) Mode of Delivery (Oxygen) Room air (11/14/24 3:31 PM) Blood pressure sites Arm, left (11/14/24 3:43 PM) Arm, left (11/14/24 3:31 PM) Weight Obtained Via Standing scale (11/14/24 3:31 PM) Social History Social History Type Response Tobacco Other: 1.5-2 ppd for 32 yrs. Sex Sex Representation Female (finding) Note * Precious Kuo: PERFORM Event Display: Patient Education/Instruction Authored Date: [id number] Ambulatory Adult Visit Summary [address] [address] Name: ALEE VIDALES : 1955?? Visit: 11/14/2024 15:05?? Ambulatory Visit Instructions ?? Your Care Team Primary Care Provider Meredith Branch MD? This Visit Provider Meredith Hager MD Vitals Signs Pulse Rate: 73 bpm Height: 163 cm Systolic Blood Pressure: 110 mm Hg Weight: 70.9 kg Diastolic Blood Pressure: 77 mm Hg Body Mass Index:??26.69 kg/m2??High Oxygen Saturation: 98 % Body surface area: 1.79 Medications The list below reflects the information in our records and provided by you today along with any changes made during this visit. Please continue your medications until treatment is completed or stopped by your provider. If this is different from the information you have or there are other questions,please contact the prescribing provider. What How Much When Instructions Changed Atorvastatin (atorvastatin 40 mg oral tablet) 1 tab(s) Oral Daily TAKE 1 TABLET BY MOUTH NIGHTLY AT BEDTIME ?? Pickup at [facility]/pharmacy #[id number] Unchanged Aspirin (aspirin 325 mg oral tablet) TAKE 1 TABLET BY MOUTH TWICE A DAY FOR 42 DAYS ?? Unchanged Betamethasone-Clotrimazole Topical (betamethasone-clotrimazole 0.05%- 1% topical cream) 1 nicky Topically Twice a [...] THE SKIN EVERY 12 WEEKS ?? Unchanged Vancomycin (vancomycin 125 mg oral capsule) TAKE 1 CAPSULE BY MOUTH EVERY 6 HOURS ?? Unchanged Zoledronic Acid (Reclast 5 mg/ 100 mL intravenous solution) 5 Milligram Intravenous Infusion Once Pharmacy Information [facility]/pharmacy #[id number]: [address], [place] [id number] [phone] Medications and Immunizations Administered Medications Given During [...] are strongly encouraged to quit. Please call [employer] at [phone] or [phone] ([phone]) or log in to [email or web address] for referrals to smoking cessation programs. ?? The National Suicide Prevention Hotline is available 17/04 if you or someone you know needs to find a reason to keep living. By calling 2-292-594-Microco.sm (6518) you'll be connected to a skilled, trained counselor at a crisis center in your area. [facility] Portal You can view and manage your care through the patient portal or by using a health care nicky of your choosing. [employer] is a website that allows you to securely view your medical information including your hospital discharge summary, office visit summaries, medications and follow-up visits. You can also request appointments, renew medications, and request access to your medical information using a health care nicky of your choosing, or just ask a question. You can enroll at [email or web address] or register during your next office visit. [facility], in keeping with [facility] guidance, no longer requires face masks for [...] primary care provider, you may find a [facility] provider by calling [facility] at [phone]. Patient Care team information Care Team Personnel Name: Jose Carlos MAYES, Meredith Lindsey Position: [facility] Physician - Primary Care Member Role: PCP Address: [address] [place] [address] Telecom: Care Team Related Persons Name: PAUL VIDALES Name: EZIO VIDALES Insurance Providers Guarantor name: ALEE GOLDMADELEINE Health Plan Information #: 2 Payer: MEDEX Member Number: [id number] Policy Number: NA Group Number: NA Health Plan Information #: 1 Payer: MEDICARE PART B OUTPT Member Number: [id number] Policy Number: NA Group Number: NA Health Plan Information #: 3 Payer: [employer] Member Number: [id number] Policy Number: NA Group Number: [id number]
--- OUTSIDE RECORDS SUMMARY | 2024-12-18 17:20 | XMS_ITS | Continuity of Care Document ---
Author Organization [facility] Address [address] [place] [address]- Care Team Providers Care Pie Filling Mixer Name Role Phone Jose Carlos MAYES, Meredith Lindsey Primary Care Physic dariusz Encounter [facility] Date(s): 11/14/24 - 12/14/24 [facility] [address] [place] [address]- Encounter Diagnosis Leukocytosis(Discharge Diagnosis) - 01/22/21 Attending Physician: AdmAlonso hein Encounter Type: Triage Allergies, Adverse Reactions, Alerts [...] vaccine, inactivated 1 06/13/11 Gi dede SARS-CoV-2(COVID-19)mRNA-LNP vac([id number]) 07/09/23 Recorded [id number] 12y+ bivalent booster vax 06/17/22 Recorded SARS-CoV-2 mRNA (wtbugge-iclq-lxsvh) vax 12/31/21 Recorded SARS-CoV-2 (COVID-19) mRNA BNT-162b2 [...] Refills, Maintenance, 11/14/24 4:03:00 PM EST, Tablet, [facility]/pharmacy #[id number], Partial fill upon patient request if the [...] 05/13/24 9:05:00 AM EDT, EC Capsule, [id number], Partial fill upon patient [...] Diagnosis Diagnosis Type Effective Dates Health Status Cl inical Service Informant Leukocytosis Discharge Diagnosis 01/22/21 [...] X-Ray Spine, Non- BH Authored Date: * Mildred MAYES, Elba: SIGN Event Display: Radiology Result Scanned Authored [...] Name: Jose Carlos MAYES, Meredith Lindsey Position: [facility] Physician - Primary Care Member Role: PCP Address: [address] [place] [address] Telecom: Care Team Related Persons Name: PAUL VIDALES Name: EZIO VIDALES Insurance Providers Guarantor name: ALEE MALCOLMMADELEINE Health Plan Information #: 1 Payer: MEDICARE PART B OUTPT Member Number: NA Policy Number: NA Group Number: NA Health Plan Information #: 2 Payer: MEDEX Member Number: NA Policy Number: NA Group Number: NA
--- OUTSIDE RECORDS SUMMARY | 2024-12-18 17:20 | XMS_ITS ---
[facility] Name [facility] Encounters Encounter Type Encounter Reason Primary Diagnosis Location Date Ambulatory [facility] [place] 10/28/2023 Ambulatory [facility] [place] 02/23/2023 Ambulatory [facility] [place] 02/06/2023
--- OUTSIDE RECORDS SUMMARY | 2024-12-18 17:21 | XMS_ITS | Data Portability ---
Author Organization [facility], [facility] Address [address] [place] [address] Care Team Providers Care Alberene Stone Setter Name Role Phone DARLING ROCHA Primary Care Provider [phone] EZIO LONDON Brim Pouncer Machine Operator [phone] CHIRAG REECE Pharmaceutical Assistant MARCIO LOZADA Archeologist Assessment Encounter Date Assessment Date Assessment LastModified [...] our office for worsening or urgent symptoms. Not available 05/04/2020 14:49:40 Plan of Treatment Reminders Order Date Submit Date Provider Last Modified By Organization Details Last Modified Time Details Appointments None recorded. Lab CBC 2019 [facility], [address] [place] [address], [address], 0 14:53:37 BMP, serum or plasma 2019 020 [facility], [address] [place] [address], [address], 0 12:02:28 vitamin D, 25-hydrox y, total, serum 2019 [facility], [address] [place] [address], [address], 0 12:20:02 MAURCIIO (antinucl ear antibodie s) screen, ifa, serum 2019 020 [facility], [address] [place], [address], 0 15:32:59 Referral None recorded. Procedures None recorded. Surgeries None recorded. Imaging None recorded. Medication Orders clotrimaz ole-betam ethasone 1 %-0.05 % topical cream 2019 020 INTERFACE [id number], [address] [place], [address], 0 14:22:06 Patient TargetsNo targets recorded. Patient Instructions Encounter Date Encounter Id Patient Instructions Last Modified By Organization Details Last Modified Time 02/18/2020 [id number] After a discussi on of treatment options, which included consideration of best practices and patient preferences, the following treatment plan and objectives were adopted: as above. [email or web address] Not available 02/18/2020 14:08:12 05/04/2020 [id number] After a discussi on of treatment and [...] / or use Purell or other hand carbon dioxide operator -Do not touch your face, eyes, nose, mouth -Cover your mouth and nose with a tissue when sneezing and coughing or sneeze and cough into your sleeve. Throw the tissue in the trash. Wash your hands afterward. Never cough or sneeze into your hands. -Clean frequently used surfaces (such as doorknobs and counter tops) with a virus-killing disinfectant. -Call with any concerns. Not available 05/04/2020 14:54:46 05/08/2020 [id number] Enc continue social distancing, frequent handwashing, cover face with mask when in crowded areas (ie. supermarket). F/u if any s/s of Covid-19 including fever, cough, SOB. [email or web address] Not available 05/08/2020 13:34:28 Reason for Referral None Reported. Results Created Date Observation Date Name Description Value Unit Range Abnormal Flag Note LastModifiedBy Organization Detail LastModifiedTime 03/24/20 20 03/24/2020 CBC WBC 9.47 K/? ? ?L 3.98-1 0.04 Not Available [address], [address], 03/24/2020 14:53:37 03/24/2003/24/2020 CBC RBC 4.62 M/? ? ?L 3.93-5 .22 Not Available [address], [address], 03/24/2020 14:53:37 03/24/2003/24/2020 CBC HGB 13.9 g/dL 11.2-1 5.7 Not Available [address], [address], 03/24/2020 14:53:37 03/24/20 20 03/24/2020 CBC HCT 42.8 % 34.1-4 4.9 Not Available [address], [address], 03/24/2020 14:53:37 03/24/2003/24/2020 CBC MCV 92.6 fL 79.4-9 4.8 Not Available [address], [address], 03/24/2020 14:53:37 03/24/2003/24/2020 CBC MCH 30.1 pg 25.6-3 2.2 Not Available [address], [address], 03/24/2020 14:53:37 03/24/20 20 03/24/2020 CBC MCHC 32.5 g/dL 32.2-3 5.5 Not Available [address], [address], 03/24/2020 14:53:37 03/24/20 20 03/24/2020 CBC plt 331 K/? ? ?L 182-36 9 Not Available [address], [address], 03/24/2020 14:53:37 03/24/20 20 03/24/2020 CBC MPV 10.4 fL 9.4-12 .3 Not Available [address], [address], 03/24/2020 14:53:37 03/24/20 20 03/24/2020 CBC neut% 61.9 % 34.0-7 1.1 Not Available [address], [address], 03/24/2020 14:53:37 03/24/20 20 03/24/2020 CBC neut# 5.86 1.56-6 .13 Not Available [address], [address], 03/24/2020 14:53:37 03/24/20 20 03/24/2020 CBC lymph % 25.2 % 19.3-5 1.7 Not Available [address], [address], 03/24/2020 14:53:37 03/24/20 20 03/24/2020 CBC lymph # 2.39 K/? ? ?L 1.18-3 .74 Not Available [address], [address], 03/24/2020 14:53:37 03/24/20 20 03/24/2020 CBC mono% 7.6 % 4.7-12 .5 Not Available [address], [address], 03/24/2020 14:53:37 03/24/20 20 03/24/2020 CBC mono# 0.72 0.24-0 .56 high Not Available [address], [address], 03/24/2020 14:53:37 03/24/20 20 03/24/2020 CBC eo% 3.7 % 0.7-5. 8 Not Available [address], [address], 03/24/2020 14:53:37 03/24/20 20 03/24/2020 CBC eo# 0.35 0.04-0 .36 Not Available [address], [address], 03/24/2020 14:53:37 03/24/20 20 03/24/2020 CBC baso% 1.0 % 0.1-1. 2 Not Available [address], [address], 03/24/2020 14:53:37 03/24/20 20 03/24/2020 CBC baso# 0.09 0.00-0 .08 high Not Available [address], [address], 03/24/2020 14:53:37 03/24/20 20 03/24/2020 CBC RDW-CV 13.2 % 11.7-1 4.4 Not Available [address], [address], 03/24/2020 14:53:37 03/24/20 20 03/24/2020 CBC Ig% 0.600 % 0.000- 1.500 Ig % >0.5 Indic ates possi ble Left Shift Not Available [address], [address], 03/24/2020 14:53:37 03/24/20 20 03/24/2020 CBC Ig# 0.060 0.000- 0.093 Not Available [address], [address], 03/24/2020 14:53:37 03/24/20 20 03/24/2020 CBC NRBC% 0.0 % 0.0-0. 2 Not Available [address], [address], 03/24/2020 14:53:37 03/24/20 20 03/24/2020 CBC NRBC# 0.000 0.000- 0.012 Not Available [address], [address], 03/24/2020 14:53:37 03/24/20 20 03/25/2020 BMP, serum or plasm a glucose 145 mg/dL 70-100 high LIPG= Speci men Marke dly Lipem ic. Chem Resul ts may be effec deanna. Not Available [address], [address], 03/25/2020 12:02:28 03/24/20 20 03/25/2020 BMP, serum or plasm a BUN 10 mg/dL 7-18 Not Available [address], [address], 03/25/2020 12:02:28 03/24/20 20 03/25/2020 BMP, serum or plasm a creatinine 0.8 mg/dL 0.8-1. 3 Not Available [address], [address], 03/25/2020 12:02:28 03/24/20 20 03/25/2020 BMP, serum or plasm a B/C 12.5 ratio Not Available [address], [address], 03/25/2020 12:02:28 03/24/20 20 03/25/2020 BMP, serum or plasm a GFR -non 80.6 mL/mi n Recom tanja d GFR by the Natio nal Kidne y Found ation >60 mL/mi n/1.7 3m2 - Na l <60 mL/mi n/1.7 3m2 - Chron ic Kidne y Disea se <15 mL/mi n/1.7 3m2 - Kidne y Failu re Not Available [address], [address], 03/25/2020 12:02:28 03/24/20 20 03/25/2020 BMP, serum or plasm a GFR - if 92.7 mL/mi n For Afric an Ameri can patie nts: Resul ts Multi plied by 1.21 Not Available [address], [address], 03/25/2020 12:02:28 03/24/2003/25/2020 BMP, serum or plasm a sodium 144 mmol/ L 136-14 5 Not Available [address], [address], 03/25/2020 12:02:28 03/24/2003/25/2020 BMP, serum or plasm a potassium 3.7 mmol/ L 3.5-5. 1 Not Available [address], [address], 03/25/2020 12:02:28 03/24/2003/25/2020 BMP, serum or plasm a chloride 107 mmol/ L 96-107 Not Available [address], [address], 03/25/2020 12:02:28 03/24/2003/25/2020 BMP, serum or plasm a anion gap 11.8 5.0-15 .0 Not Available [address], [address], 03/25/2020 12:02:28 03/24/2003/25/2020 BMP, serum or plasm a CO2 25 mmol/ L 21-32 Not Available [address], [address], 03/25/2020 12:02:28 03/24/20 20 03/25/2020 BMP, serum or plasm a calcium 8.9 mg/dL 8.5-10 .3 Not Available [address], [address], 03/25/2020 12:02:28 03/24/2003/25/2020 TSH, serum or plasm a TSH 0.82 uIU/m L 0.50-6 .00 The Ameri can Colle ge of Endoc rinol ogy and Ameri can Thyro id Assoc iatio n recom mend goal TSH value s betwe en 0.4-4 .0 mIU/m L. Not Available [address], [address], 03/25/2020 12:20:01 03/24/2003/25/2020 vitam in D, 25-hy droxy , total [...] er than 30 ng/mL . Not Available [address], [address], 03/25/2020 12:20:02 03/24/20 20 03/25/2020 AST/S GOT (aspa rtate amino trans feras e), serum or plasm a AST 25 U/L 0-37 LIPG= Speci dora starksy Lipem ic. Chem Resul ts may be effec deanna. Not Available [address], [address], 03/25/2020 12:46:25 03/24/2003/25/2020 ALT (sara ine amino trans feras e), serum or plasm a ALT 49 U/L 6-63 Not Available [address], [address], 03/25/2020 12:46:26 03/24/20 20 03/25/2020 MAURICIO (anti [...] Patte rns (http s://d oi.or g/10. 1515/ [facility]2017- 0052) For addit ional infor li yanes e refer to http: //[facility] adalberto santamaria.Que stDia gnost ics.c om/fa q/FAQ 177 (This link is being provi ded for infor rachna kaplan/ educa maira marie purpo ses only. ) Not Available [facility] [address], [place], [address], 03/25/2020 15:32:58 03/24/2003/25/2020 HbA1c (hemo globi n A1c), blood hemoglobin A1C 5.9 % 4.8-6. 0 Goal: <7% in Patie nts with Diabe barbie Not Available [address], [address], 03/25/2020 15:42:28 03/24/2003/25/2020 HbA1c (hemo globi n A1c), blood estimated average glucose 122.6 mg/dL Not Available [address], [address], 03/25/2020 15:42:28 Result Notes None recorded. Problems Name Problem SNOMED Code Status Onset Date Resolution Date Notes Provider Name and Address Organization Details Recorded Time Hypothyro idism 08624073 [place], [address], [facility] 6 10:34:37 Psoriasis 3793475 [place], [address], [facility] 6 17:39:38 Osteoarth ritis 110085950 [place], [address], [facility] 6 17:21:01 Vitamin D deficienc y 47060903 Active 2015 [place], [address], [facility] 6 12:18:54 Cobalamin deficienc y 625980287 Active 2015 [place], [address], [facility] 6 12:19:24 Ophthalmi c migraine 00044140 Active 2017 [place], [address], [facility] 8 12:49:07 Obesity 843268772 Active 2017 [place], [address], [facility] 8 10:43:25 Adenomato us polyp of colon 805413961 Active 2018 [place], [address], [facility] 9 12:38:22 Cyst of kidney 993728500 Active 2019 repeat US 11/2020 to assure no changes [place], [address], [facility] 0 08:56:05 [facility] [id number] Completed 200708/14/2013 Darling Rocha MD [address] [place] [address] [place], [address], [facility] 6 17:21:01 Problem Notes None recorded. Procedures Surgical History Date Name Laterality Status Provider Name and Address Organization Details Recorded Time 05/08/20 20 Cerumen Removal - Irrigation/Lava ge completed Agatha Boles NP [address] [place] [address], [address], [facility] 05/08/2020 13:33:51 10/10/19 20 Cerumen Removal - Irrigation/Lava ge completed Nori Meadows RN [facility] 10/10/2019 14:57:52 05/04/20 19 POC Urinalysis Testing completed Bette Pardo MA [facility] 05/04/2019 11:23:15 11/21/19 19 POC Urinalysis Testing completed Swati Patricia MA [facility] 11/21/2018 11:38:48 08/28/20 18 Cerumen Removal - Irrigation/Lava ge completed Rita Ramos [facility] 08/28/2018 11:46:20 03/16/20 18 Cerumen Removal - Irrigation/Lava ge completed Yadira Finley MD [address] [place] [address], [address], [facility] 03/16/2018 15:02:34 01/06/20 18 [address]: Therapeutic Exercise completed Deirdre Trujillo, PT [address] [place], [address], [facility] 01/05/2018 13:09:35 01/06/20 18 [address]: Manual Therapy completed Deirdre Trujillo, PT [address] [place], [address], [facility] 01/05/2018 13:09:38 01/06/20 18 Treatment and Advice completed Deirdre Trujillo, PT [address] [place], [address], [facility] 01/05/2018 12:41:49 12/27/19 18 [address]88: Therapeutic Exercise completed Deirdre Trujillo, PT [address] [place], [address], [facility] 12/26/2017 13:30:27 12/27/19 18 Treatment and Advice completed Deirdre Trujillo, PT [address] [place], [address], [facility] 12/26/2017 13:27:24 12/20/19 18 41149: Therapeutic Exercise completed Deirdre Trujillo, PT [address] [place], [address], [facility] 12/19/2017 15:39:43 12/20/19 18 Treatment and Advice completed Deirdre Trujillo, PT [address] [place], [address], [facility] 12/19/2017 14:56:59 12/13/19 18 Physical Activity Counselling completed Deirdre Trujillo, PT [address] [place], [address], [facility] 12/12/2017 15:27:42 12/13/19 18 [address]: PT Eval, Moderate Complexity completed Deirdre Trujillo, PT [address] [place], [address], [facility] 12/12/2017 15:27:38 12/13/19 18 Treatment and Advice completed Deirdre Trujillo, PT [address] [place], [address], [facility] 12/12/2017 14:31:02 09/23/20 16 Cerumen Removal - Irrigation/Lava ge completed Isabella Pulido LPN [facility] 09/23/2016 11:49:35 02/02/20 16 POC Urinalysis Testing completed Jory Vallecillo LPN [facility] 02/02/2016 16:08:03 Imaging Results None recorded. Procedure Notes None recorded. Medical Equipment None Reported. Allergies Allergen ID Allergen Name Allergen Category Reaction Reaction Severity Criticality Documentation Date Start Date Code Code System Note Provider Name and Address Organization Details Recorded Time 870298 meloxicam medicatio n Not available Not available Not available 04/09/2015 49111 RxNorm Too drows y. Milagro Chris, TOMAS [address] [facility], [place], [address] , [facility] 5 12:03:16 136612 epinephri ne medicatio n Not available Not available Not available 07/22/2015 3992 RxNorm pt has had & has been o.k. but had & got jitte ry & rash the next day. Patricia Awad [facility] 6 11:50:09 093113 Chantix medicatio n Not available Not available Not available 07/22/2015 11852 [address] Juan F Nevarez [facility] 5 12:17:50 222644 doxycycli ne Not available nausea Not available Not available 09/19/2018 3640 RxNorm Christie Moser [facility], [facility] 8 15:44:39 Medications Name Sig Start [...] Not Available Not Available No t Available Randolph Thyroid 15 mg tablet TAKE 4 TABLETS [...] Updated DateTime 02/18/2020 162.56 cm 32.6 kg/m2 86574.55 g Darling Rocha MD [address] [place] [address], [address], [facility] 02/18/2020 14:08:40 Date Recorded Body height Body mass index (BMI) Body weight Body temperature Heart rate Systolic blood pressure Diastolic blood pressure Provider Name and Address Organization Details Last Updated DateTime 0 162.56 cm 33.7 kg/m2 30015.5 g 97.8 [degF] 68 /min 136 mm[Hg] 84 mm[Hg] Juan F Nevarez MA [facility] 0 12:21:28 Social History Question Answer Notes LastModified by Organization Details LastModified Time Tobacco Smoking Status Former Smoker quit 8yrs ago-04/09/15, smoked for 30 yrs, smoked 1-2 PPD RODRIGO Singer, [facility] 04/09/2015 11:51:45 What Is Your Level [...] Or Recreational Drugs Have You Used? None denilson Information not available 10/23/2015 Do You Or Have You Ever Used E-cigarettes Or Vape? 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 With Others Information not available 10/23/2015 Patient Has Health Care Proxy Signed And In Chart Yes Ezio Prieto, Spouse Information not available 04/10/2015 Marital Status Ezio 1983 Informatio n not available 10/23/2015 Mosquito Repellent [...] virus, quadrivalent, PF 8 completed Not Available [facility] 10/12/2019 02:34:17 Tdap 2 completed [facility] 05/12/2015 08:52:35 influenza, unspecified formulation 3 completed Juan F Nevarez MA [facility] 07/22/2015 12:16:56 Td(adult) unspecified formulation 7 completed Juan F Nevarez MA [facility] 07/22/2015 12:16:56 Influenza, split virus, quadrivalent, preservative 6 completed FERNANDO Kebede [facility] 07/15/2016 17:00:35 Influenza, split virus, quadrivalent, PF 9 completed Not Available [facility] 10/12/2019 02:29:22 pneumococcal polysaccharide PPV23 0 completed Not Available [facility] 10/12/2019 02:40:15 influenza, unspecified formulation 8 completed Christie Moser [facility] 09/19/2018 15:50:42 Td (adult), 2 Lf tetanus toxoid, preservative free, adsorbed 0 completed Nori Meadows RN [facility] 05/08/2020 15:36:28 Influenza, high-dose, quadrivalent, PF 0 completed OC MontillaRMA [facility] 07/11/2020 11:24:54 Past Encounters Encounter ID Performer Location Encounter Start Date Encounter Closed Date Diagnosis/Indication Diagnosis SNOMED-CT Code Diagnosis ICD10 Code Diagnosis Note [id number] [facility], [facility] [address] [place] [address] 02/12/2008 15:45:42 10/15/2008 02:02:29 [id number] Optical, [facility] [address] [place] [address] 04/28/2008 15:25:26 10/15/2008 02:02:29 [id number] Milagro Chris NP , [facility], [address]ICE [address] [place] [address] 04/09/2015 11:31:06 04/09/2015 12:32:46 Psoriasis 4105997 New pt establishi ng with the practice. [...] her dose if she is ill. Hypothyroidism 29940827 [id number] Sam MI, [facility], [address] [place] [address] 05/01/2015 16:23:27 05/01/2015 17:21:30 Psoriasis 3326497 Cutaneous psoriasis, previously followed by Dermatolog y [...] MTX reviewed. Check CBC and CMP. Hypothyroidism 19985814 Was told TSH was normal in December-January 2015 during her physical. Denies any previous intoleranc e to Levothyrox ine. Records requested. [id number] Charlene Gomes RN , [facility], [address] [place] [address] 10/23/2015 11:30:25 10/23/2015 12:32:36 Adult health examination 652488449 Z00.00 see Risk Assessment and Lifestyle Change Counseling section above Hypothyroidism 02044497 E03.9 TSh today has been stable Psoriasis 4591507 L40.9 methotrexa te with Derm improving Counseling 489582894 Z71 .9 see HPI Obesity 705493569 E66.9 pt with active weight loss plan three serge follow up to assess and monitor could consider nutrition referral at that time if needed glucose has been high, mildly, on CMP screening at [facility]; will get A1C also lipid panel Osteoarthritis 899025299 M19.90 [facility], uses 1/2 dose Screening for malignant neoplasm of cervix 242772163 Z12.4 [id number] Milagro Taylor , [facility], [address] [place] [address] 12/04/2015 14:43:15 12/04/2015 15:35:49 Acute upper respiratory infection 74927483 J06.9 [id number] Darling Rocha MD , [facility], [address] [place] [address] 01/15/2016 16:57:34 01/15/2016 17:36:05 Hypothyroidism 07854906 E03.9 TSH in range wants to try to levothyrox ine instead of Randolph will convert dosing has been stable Psoriasis 1484973 L40.9 methotrexa te with Derm improving needs labs Obesity 633247584 E66.9 pt with active weight loss plan three serge follow up to assess and monitor could consider nutrition referral at that time if needed glucose has been high, mildly, on CMP screening at [facility]; will get A1C also lipid panel Injury of knee 649297443 S80.921A recurrent right knee injury going to ortho Monday, known to them [id number] LAWRENCE Henning , [facility], [address] [place] [address] 02/02/2016 15:28:37 02/02/2016 16:26:30 Screening for disorder 998246629 Z11.59 Urinary tr act infectious disease 84456654 N39.0 No sign of infection on urine dipstick. Push fluids f/u if no improvemen t in 72 hours or for fever or back pain. [id number] Milagro Chris NP , [facility], [address] [place] [address] 05/19/2016 08:38:33 05/19/2016 09:25:42 Screening for malignant neoplasm of respiratory tract 589069510 Z12.2 Pt wishes to have low dose CT scan screening for lung cancer as she has > 30 pack years of smoking. Understand s she will be exposed to radiation, but at lower doses. Myofascial pain 28253435 9 M79.1 After spending almost 30 minutes discussing her respirator y issues and shingles vaccine, pt discussed the real reason she was here was intermitte nt unrelentin g myofacial pain and spasm in different muscle groups. Denies new meds or changes. Will check labs. Dyspnea 726863641 R06.00 Mild in mornings since spring on days with humid weather. Will check spirometry with nursing staff on another day to r/o copd as pt with > 40 year pack history [id number] Janki Scruggs, LAWRENCE-FELECIA , [facility], [address] [place] [address] 05/28/2016 10:03:05 05/28/2016 14:31:40 Spasm of back muscles 451238825 M62.830 left scapular spasm, in setting of intermitte nt peripheral spasm, with no associated weakness, treat shoulder pain as written below, no concern for overuse or abuse of meds,coord inate with rheum re systemic symtpoms. Psoriasis 9214255 L40.9 managed by rheum in [facility] [id number] , [facility], [address] [place] [address] 06/29/2016 09:33:46 06/29/2016 10:25:37 Active or passive immunization 295845866 Z23 Pt going to wait because she is on methotrexa te and will check with Derm first Spasm 06837551 R25.2 Pt with severe muscle spasm and pain, worse in arms and legs. Feels very washed out. Fingers clench. Degenerati ve joint disease involving multiple joints M15.9 Multiple joint pain. Also has psoriasis and is on methotrexa te. Having alot of joint pain and muscle pain [id number] Yuriy Reece MD [facility], [facility] [address] [facility] [address] 07/01/2016 08:52:26 07/04/2016 07:34:12 Spasm 18299226 R25.2 Chief complaint is prominent muscular spasms. [...] at low dose. Osteoarthr itis of knee 432407092 M17.0 Symptomati c. Gets steroid injections (Dr Mendieta). Osteoarthritis 079149774 M19.90 Degenerati ve arthritis of both knees, but also osteoarthr itic changes at several locations. Other than the knees, none of this is particular ly symptomati c at present. Psoriasis 7254967 L40.9 Followed by dermatolog y. On low-dose methotrexa te. No sign of psoriatic arthritis. Psoriasis, well controlled [id number] Darling Rocha MD , [facility], [address] [place] [address] 07/15/2016 16:48:21 07/15/2016 17:30:01 Osteoarthritis 940884220 M19.90 followed at [facility], uses 1/2 dose Hypothyroidism 18785639 E03.9 TSH was in rangeconti nue samedoesn' t seem a factor in her pain Psoriasis 7752293 L40.9 methotrexa te with Derm improvings eeing them in coming monthsmedi cation makes her very tired Spasm 08687751 R25.2 unclear etiologydo es get some relief [...] her workshe will consider miko chi in [facility] ndiscussed anti-infla mmatory diet Neuralgia 51609686 M79.2 mostly UEpt concerned carpel tunnel, has upper arm twinges as well, mostly at night, sides rotateno focal sxawaiting neurology evaluation , apt in September, on waiting listdoesn' t want new medication very stressed, aware of stress componenen tsupportiv e reassuranc e today Depressive disorder 5847 9006 F32.9 pt presents with sx of major depression related to physical healthdisc ussion today tx may help overall healthwant s therapydoe sn't want medication offered referrals to therapy here or acute visit with Dr Rios will talk with her friend who is a therapist to get an idea of who to seeno SI or self harm [id number] Darling Rocha MD , [facility], [address] [place] [address] 08/05/2016 15:17:27 08/05/2016 16:07:40 Hypothyroidism 55963518 E03.9 stable Osteoarthritis 286505687 M19.90 ongoing pain, saw sergo Izaguirre ened with visitother pain issues precluding considerat ion of TKR nowgot BL joint injections focussed on other pains Spasm 00714273 R25.2 ongoing, some relief, feels achy all the timesaw rheumuncle ar if could be fibromyalg ia at this point with ongoing vague and traveling constant achesI wonder if depression contributi ng Neuralgia 22296041 M79.2 neurology 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 dental biller night time tricyclic or gabapentin at next visit Major depr essive disorder 897781919 F32.9 start tx todayenc therapy but so many obstaclesp t with very poor outlook, focusses on obstaclesd iscussed leave from work or ST disability given the correltati on with her sxclose f/u one monthdiscu ssed [place] [id number] Darling Rocha MD , [facility], [address] [place] [address] 09/23/2016 10:49:51 09/23/2016 11:48:30 Hypothyroidism 89613216 E03.9 stable Spasm 21133326 R25.2 resolved with stopping methotrexa te Neuralgia 06021699 M79.[address] Linton are improved with tx Vit D and B12 Major depr essive disorder 577302464 F32.9 stopped tx, wants to wait for tx of Vit D and B12 deficiency pt is quite anxiousshe has good reason but I feel there is more symptomato logy that could benefit from tx and will talk with her again at f/uenc to find therapist, she agrees this is a good idea but hasn't had time Psoriasis 0905243 L40.9 off methotrexa teworsenin gfinding relief in her sx off methotrexa tewill be exploring other options for tx Vitamin D deficiency 347 99838 E55.9 being txsx are improvingf /u 2 months to assure absorbing Cobalamin deficiency 190 091268 E53.8 being txsx are improving Impacted cerumen 7360168 6 H61.23 irrigation todayadvis ed f/u derm re tx psoriasis in canals as pt has mutliple tx she changes up [id number] Darling Rocha MD FP, [facility], [address] [place] [address] 12/27/2016 14:29:28 12/27/2016 15:29:59 Adult health examination 878431021 Z00.00 see Risk Assessment and Lifestyle Change Counseling section above Vitamin D deficiency 347 54488 E55.9 repeat screeningp t continues to supplement some ongoing fatigue Osteoarthritis 061835822 M19.90 ongoing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
--- OUTSIDE RECORDS SUMMARY | 2024-12-18 17:21 | XMS_ITS | Continuity of Care Document ---
Author Organization [facility] Address [address] [place] [address]- Care Team Providers Care Teradata Solution Architect Name Role Phone Jose Carlos MAYES, Meredith Lindsey Primary Care Physic dariusz Encounter [facility] Date(s): 12/02/24 - 12/09/24 [facility] [address] [place], [place] [address] Encounter Diagnosis Diarrhea(Discharge Diagnosis) - 12/02/24 History of left knee replacement(Discharge Diagnosis) - 12/02/24 Esophageal dysmotility(Discharge Diagnosis) - 12/02/24 Decreased appetite(Discharge Diagnosis) - 12/02/24 Psoriasis(Discharge Diagnosis) - 12/03/24 Attending Physician: Willa Caputo MD Referring Physician: Jose Carlos MAYES, Meredith Lindsey Encounter [...] 10/13/17 Serjio rded influenza virus vaccine, inactivated 10/20/16 Serjio rded influenza virus vaccine, inactivated 08/05/13 Give n influenza virus vaccine, inactivated 1 06/13/11 Gi dede SARS-CoV-2(COVID-19)mRNA-LNP vac([id number]) 07/09/23 Recorded [id number]-[id number] 12y+ bivalent booster vax 06/17/22 Recorded SARS-CoV-2 mRNA (gtmtaci-qhlb-lovsh) vax 12/31/21 Recorded SARS-CoV-2 (COVID-19) mRNA BNT-162b2 [...] Refills, Maintenance, 11/14/24 4:03:00 PM EST, Tablet, [facility]/pharmacy #[id number], Partial fill upon patient request if the [...] Maintenance, 05/13/24 9:05:00 AM EDT, EC Capsule, [facility]/pharmacy #[id number], Partial fill upon patient request if [...] 5:50:00 PM EDT, 12/04/24 5:45:00PM EDT, Capsule, [facility]/pharmacy #[id number], Partial fill upon patient request if [...] Effective Dates Health Status Clinical Service Informant Diarrhea Discharge Diagnosis 12/02/24 History of left knee replacement Discharge Diagnosis 12/02/24 Esophageal dysmotility Discharge Diagnosis 12/02/24 Decreased appetite Discharge Diagnosis 12/02/24 Psoriasis Discharge Diagnosis 12/03/24 Vital Signs Most recent to oldest [Reference Range]: 1 2 Height 163 cm (12/02/24 10:52 AM) 163 cm (12/02/24 10:06 AM) Weight 69.7 kg (12/02/24 10:52 AM) Oxygen Saturation [94-100 %] 97 % (12/02/24 10:06 AM) Pulse Rate [55-90 bpm] 104 bpm *H* (12/02/24 10:06 AM) Body Mass Index [18.5-24.99 kg/m2] 26.23 kg/m2 *H* (12/02/24 10:52 AM) Blood Pressure [90-138/55-84 mm Hg] 124/ 70mm Hg (12/02/24 10:06 AM) Respiratory Rate [16-30 br/min] 18 br/mi n (12/02/24 10:06 AM) Temperature [96.8-100.4 DegF] 97.8 DegF (12/02/24 10:06 AM) Mode of Delivery (Oxygen) Room air (12/02/24 10:06 AM) Blood pressure sites Arm, left (12/02/24 10:06 AM) Temperature Route Oral (12/02/24 10:06 AM) Social History Social History Type Response Tobacco Other: 1.5-2 ppd for 32 yrs. Sex Sex Representation Female (finding) Note * Moshe Rogers: PERFORM Event Display: Patient Education/Instruction Authored Date: [id number] Ambulatory Adult Visit Summary [facility] [address] [address] Name: ALEE VIDALES : 1955?? Visit: 12/02/2024 09:07?? Ambulatory Visit Instructions ?? Your Care Team Primary Care Provider Jose Carlos MAYES, Meredith Lindsey? This Visit Provider [facility] Your Diagnosis Diarrhea History of left knee replacement Esophageal dysmotility Decreased appetite Vitals Signs Temperature: 97.8 DegF Height: 163 cm Pulse Rate:??104 bpm??High Weight: 69.7 kg Respiratory Rate: 18 br/min Body Mass Index:??26.23 kg/m2??High Systolic Blood Pressure: 124 mm Hg Body surface area: 1.78 Diastolic Blood Pressure: 70 mm Hg ?? Oxygen Saturation: 97 % ?? What to do next Future Orders CBC w/ Differential - Routine, Once, 12/02/24 11:02:00 EDT, Order for Today, [facility], Blood?? Basic Metabolic Panel - Routine, Once, 12/02/24 11:02:00 EDT, Order for Today, [facility], Blood?? Sedimentation Rate - Routine, Once, 12/02/24 11:05:00 EDT, Order for Today, [facility], Blood?? C Reactive Protein (CRP) - Routine, Once, 12/02/24 11:05:00 EDT, Order for Today, [facility], Blood?? C. difficile Rapid Toxin Assay - Routine, Once, 12/02/24 11:05:00 EDT, Order for Today, [facility], Stool?? Routine Culture, Stool (Stool for Routine Culture) - Routine, Once, 12/02/24 11:06:00 EDT, Order for Today, [facility], Stool?? Medications The list below reflects the information in our records and provided by you today along with any changes made during this visit. Please continue your medications until treatment is completed or stopped by your provider. If this is different from the information you have or there are other questions,please contact the prescribing provider. What How Much When Instructions Unchanged Aspirin (aspirin 325 mg oral tablet) TAKE 1 TABLET BY MOUTH TWICE A DAY FOR 42 DAYS ?? Unchanged Atorvastatin (atorvastatin 40 mg oral tablet) 1 tab(s) Oral Daily TAKE 1 TABLET BY MOUTH NIGHTLY AT BEDTIME ?? Unchanged Betamethasone-Clotrimazole Topical (betamethasone-clotrimazole 0.05%- 1% [...] discuss all test results with your provider. Basic Metabolic Panel?-- Results Pending -- C. difficile Rapid Toxin Assay?-- Results Pending -- CBC w/ Differential?-- Results Pending -- CRP?-- Results Pending -- Sedimentation Rate?-- Results Pending -- Stool for Routine Culture?-- Results Pending -- Medications and Immunizations Administered [...] are strongly encouraged to quit. Please call [email or web address] at [phone] or [phone] ([phone]) or log in to [email or web address] for referrals to smoking cessation programs. ?? The National Suicide Prevention Hotline is available 17/04 if you or someone you know needs to find a reason to keep living. By calling 5-911-798-[employer] (8072) you'll be connected to a skilled, trained counselor at a crisis center in your area. [facility] Portal You can view and manage your care through the patient portal or by using a health care nicky of your choosing. [employer] is a website that allows you to securely view your medical information including your hospital discharge summary, office visit summaries, medications and follow-up visits. You can also request appointments, renew medications, and request access to your medical information using a health care nicky of your choosing, or just ask a question. You can enroll at [email or web address] or register during your next office visit. [facility], in keeping with [facility] guidance, no longer requires face masks for [...] primary care provider, you may find a [facility] provider by calling [facility] at [phone]. Patient Care team information Care Team Personnel Name: Jose Carlos MAYES, Meredith Lindsey Position: [facility] Physician - Primary Care Member Role: PCP Address: [address] [place] [address] Telecom: Care Team Related Persons Name: PAUL VIDALES Name: EZIO VIDALES Insurance Providers Guarantor name: ALEE VIDALES Health Plan Information #: 1 Payer: MEDICARE PART B OUTPT Member Number: [id number] Policy Number: NA Group Number: NA Health Plan Information #: 2 Payer: MEDEX Member Number: [id number] Policy Number: NA Group Number: NA
== END 2024-12-18 14:41 | disposition home or self-care (01) ==
LOC: HO.HOS 14:27
PROVIDERS: Visit Provider Orthopaedic Surgery
DX: M25.562 Pain in left knee (principal)
CPT/HCPCS: 99024

== ENCOUNTER → 2024-12-18 14:26 | Outpatient (BNVA) | payer MEDICARE, SELFPAY | PROVIDERS: Visit Provider Orthopaedic Surgery | DX: M25.562 Pain in left knee (principal); Z47.1 Aftercare following joint replacement surgery; Z96.652 Presence of left artificial knee joint | CPT/HCPCS: 99212 ==

== ENCOUNTER 2025-04-22 14:18 | Outpatient (AMB) | payer MEDICARE, SELFPAY ==
--- NOTE | 2025-04-22 14:39 | A.OFFVIS_ITS ---
Vital Signs 04/22/25 14:47 Height 5 ft 3 in Weight 142 lb BMI 25.2 Intake Visit Reasons: Bilateral knee discomfort Intake Note: Pratibha is a 69 year old female who presents with complaints of mild intermittent discomfort in both of her knees after undergoing bilateral total knee replacement surgeries. The patient states that she aggravated her knees recently when she ?fell into a pile of laundry?. The patient denies any fevers or chills. She continues with her home exercise program. She does not take any medicines for her discomfort. Allergies adhesive tape Allergy (Intermediate, Verified 04/22/25 14:45) Rash (from band aids/medicine patches) Sulfa (Sulfonamide Antibiotics) Allergy (Intermediate, Verified 04/22/25 14:45) Vomiting epinephrine Allergy (Mild, Verified 04/22/25 14:45) Shakiness varenicline (From Chantix) Adverse Reaction (Intermediate, Verified 04/22/25 14:45) emotional discord Medication List - Last Reconciled 04/23/25 by Quintin Pérez MD acetaminophen 650 mg (2 x 325 mg) PO Q6H PRN 30 days acidophilus-pectin, citrus 100 million cell-10 mg 1 cap PO DAILY aspirin 325 mg PO BID 42 days celecoxib 200 mg PO BID 30 days docusate sodium 100 mg PO BID 14 days fluconazole 150 mg PO ONCE methocarbamol 500 mg PO BEDTIME 7 days multivitamin 1 tab PO DAILY omeprazole 40 mg PO BID@0630,1630 ustekinumab (Stelara) 45 mg subcut Q12W walker Folding front wheeled walker zoledronic arqg-jcuiwpiu-ktgem 5 mg/100 mL (Reclast) 1 ea IV [id number] PFSH Medical History Anxiety Pneumonia Fracture, ribs White coat syndrome without diagnosis of hypertension Vertebral compression fracture Osteoporosis Psoriasis Osteoarthritis Ocular migraine Hypertriglyceridemia Hypothyroid Dysphagia GERD (gastroesophageal reflux disease) Surgical History Hx of bilateral cataract extraction H/O colonoscopy Hx of arthroscopy of left knee History of esophagogastroduodenoscopy (EGD) History of tonsillectomy and adenoidectomy History of History of total right knee replacement (TKR) Family History Mother Lung cancer Liver cancer Sister Hypertension Sister Multiple sclerosis Social History Household Members: Spouse Housing: House Are you a primary managed care provider to a significant other at home: No Do you presently have visiting nurse or other home services: No Alcohol intake: current Alcohol intake frequency: holidays/special occasions only Patient Tobacco Use Status: Former Tobacco user Tobacco use type: Cigarette Years Smoked: 30 service: No Current occupational status: employed and retired Current occupation: [employer] Physical Exam Vital Signs: BMI result Body Mass Index 25.2 Const Other: Well-nourished well-developed very friendly female awake alert and oriented x3 in no acute distress Extrem Other: Bilateral lower extremity examination shows good capillary refill, no skin lesions noted, normal sensation light touch Bilateral knee examination shows that the surgical incisions are well healed, no erythema, full active extension and flexion to 120 degrees, her patellae track well, no instability Results Reviewed Results Reviewed: X-rays of the patient's bilateral knee show total knee arthroplasties in good position with no signs of loosening, no acute bony abnormalities Assessment & Plan Assessment & Plan (1) Right knee pain: Code(s): M25.561 - Pain in right knee Category: Medical (2) Left knee pain: Code(s): M25.562 - Pain in left knee Category: Medical Plan Ms. Prieto continues to do well after undergoing bilateral total knee replacement surgeries. She does not appear to have damage either of her total knee arthroplasties in spite of her recent fall. She will continue with her home exercise program. She does know to take antibiotics before any dental work. She will contact me prior to her annual follow-up appointment should any questions or concerns arise. Feel free to call me at any time should questions regarding her orthopedic management arise. I spent 20 minutes in reviewing the patient's records and imaging studies, lona jackson the patient and documenting in the medical record. Orders: Orders XR knee LT 3V 04/22/25 M25.562 - Pain in left knee XR knee RT 3V 04/22/25 M25.561 - Pain in right knee Coding Level of Care Code Est Pt Level 3 (56525) Complex EM visit Add On G2211 Diagnoses Right knee pain M25.561 Left knee pain M25.562
[2025-04-22 14:47] VITALS: BMI 25.2
--- OUTSIDE RECORDS SUMMARY | 2025-04-22 14:59 | XMS_ITS | Clinical Summary ---
Author Organization [facility] Address [address] [place], [place] [id number] Care Team Providers Care Licensed Final Expense Agents Name Role Phone Unavailable Primary Care Provider [...] 2024 12/31/2021, 07/29/2021, 11/28/2020 Influenza Vaccine (#1) 2025 2, 07/27/2021, 07/11/2020, Additional history exists RSV [...]
--- OUTSIDE RECORDS SUMMARY | 2025-04-22 14:59 | XMS_ITS | Data Portability ---
Author Organization [facility], , [facility] Address [address] [place] [address] Care Team Providers Care Steam Turbine Assembler Name Role Phone DARLING ROCHA Primary Care Provider [phone] EZIO LONDON Elevator Service Mechanic [phone] CHIRAG REECE Stock Clipper MARCIO LOZADA Vp Transportation Assessment Encounter Date Assessment Date Assessment LastModified [...] Patient location: home During the visit the patient s medical history and medical record were reviewed. The patient was notified to call our office for worsening or urgent symptoms. [email or web address] Not available 05/04/2020 14:49:40 Plan of Treatment Reminders Order Date Submit Date Provider Last Modified By Organization Details Last Modified Time Details Appointments New Patient- 30 2024 11:30A M HOME HALEY Not available Not available Not available Lab CBC 2019 020 [facility], [address] [place] [address], [address], 03/24/2020 14:53:37 BMP, serum or plasma 2019 020 [facility], [address] [place], [address], 03/25/2020 12:02:28 vitamin D, 25-hydro xy, total, serum 2019 [facility], [address] [place], [address], 03/25/2020 12:20:02 MAURICIO (antinuc lear antibodi es) screen, ifa, serum 2019 [facility], [address] [place], [address], 03/25/2020 15:32:59 Referral None recorded . Procedures None recorded . Surgeries None recorded . Imaging None recorded . Medication Orders clotrima zole-bet amethaso ne 1 %-0.05 % topical cream 2019 INTERFACE [id number], [address] [place], [address], 02/18/2020 14:22:06 Patient TargetsNo targets recorded. Patient Instructions Encounter Date Encounter Id Patient Instructions Last Modified By Organization Details Last Modified Time 02/18/2020 [id number] After a discussi on of treatment options, which included consideration of best practices and patient preferences, the following treatment plan and objectives were adopted: as above. [email or web address] Not available 02/18/2020 14:08:12 05/04/2020 [id number] After a discussi on of treatment and [...] / or use Purell or other hand e tailer -Do not touch your face, eyes, nose, mouth -Cover your mouth and nose with a tissue when sneezing and coughing or sneeze and cough into your sleeve. Throw the tissue in the trash. Wash your hands afterward. Never cough or sneeze into your hands. -Clean frequently used surfaces (such as doorknobs and counter tops) with a virus-killing disinfectant. -Call with any concerns. [email or web address] Not available 05/04/2020 14:54:46 05/08/2020 [id number] Enc continue social distancing, frequent handwashing, cover face with mask when in crowded areas (ie. supermarket). F/u if any s/s of Covid-19 including fever, cough, SOB. [email or web address] Not available 05/08/2020 13:34:28 Reason for Referral None Reported. Results Created Date Observation Date Name Description Value Unit Range Abnormal Flag Note LastModifiedBy Organization Detail LastModifiedTime 03/24/20 20 03/24/2020 CBC WBC 9.47 K/ L 3.98-1 0.04 Not Available [address], [address], 03/24/2020 14:53:37 03/24/20 20 03/24/2020 CBC RBC 4.62 M/ L 3.93-5 .22 Not Available [address], [address], 03/24/2020 14:53:37 03/24/20 20 03/24/2020 CBC HGB 13.9 g/dL 11.2-1 5.7 Not Available [address], [address], 03/24/2020 14:53:37 03/24/20 20 03/24/2020 CBC HCT 42.8 % 34.1-4 4.9 Not Available [address], [address], 03/24/2020 14:53:37 03/24/2003/24/2020 CBC MCV 92.6 fL 79.4-9 4.8 Not Available [address], [address], 03/24/2020 14:53:37 03/24/20 20 03/24/2020 CBC MCH 30.1 pg 25.6-3 2.2 Not Available [address], [address], 03/24/2020 14:53:37 03/24/20 20 03/24/2020 CBC MCHC 32.5 g/dL 32.2-3 5.5 Not Available [address], [address], 03/24/2020 14:53:37 03/24/20 20 03/24/2020 CBC plt 331 K/ L 182-36 9 Not Available [address], [address], 03/24/2020 14:53:37 03/24/20 20 03/24/2020 CBC MPV 10.4 fL 9.4-12 .3 Not Available [address], [address], 03/24/2020 14:53:37 03/24/20 20 03/24/2020 CBC neut% 61.9 % 34.0-7 1.1 Not Available [address], [address], 03/24/2020 14:53:37 03/24/20 20 03/24/2020 CBC neut# 5.86 1.56-6 .13 Not Available [address], [address], 03/24/2020 14:53:37 03/24/20 20 03/24/2020 CBC lymph % 25.2 % 19.3-5 1.7 Not Available [address], [address], 03/24/2020 14:53:37 03/24/20 20 03/24/2020 CBC lymph # 2.39 K/ L 1.18-3 .74 Not Available [address], [address], 03/24/2020 14:53:37 03/24/20 20 03/24/2020 CBC mono% 7.6 % 4.7-12 .5 Not Available [address], [address], 03/24/2020 14:53:37 03/24/20 20 03/24/2020 CBC mono# 0.72 0.24-0 .56 high Not Available [address], [address], 03/24/2020 14:53:37 03/24/20 20 03/24/2020 CBC eo% 3.7 % 0.7-5. 8 Not Available [address], [address], 03/24/2020 14:53:37 03/24/20 20 03/24/2020 CBC eo# 0.35 0.04-0 .36 Not Available [address], [address], 03/24/2020 14:53:37 03/24/20 20 03/24/2020 CBC baso% 1.0 % 0.1-1. 2 Not Available [address], [address], 03/24/2020 14:53:37 03/24/20 20 03/24/2020 CBC baso# 0.09 0.00-0 .08 high Not Available [address], [address], 03/24/2020 14:53:37 03/24/20 20 03/24/2020 CBC RDW-CV 13.2 % 11.7-1 4.4 Not Available [address], [address], 03/24/2020 14:53:37 03/24/20 20 03/24/2020 CBC Ig% 0.600 % 0.000- 1.500 Ig % >0.5 Indic ates possi ble Left Shift Not Available [address], [address], 03/24/2020 14:53:37 03/24/20 20 03/24/2020 CBC Ig# 0.060 0.000- 0.093 Not Available [address], [address], 03/24/2020 14:53:37 03/24/20 20 03/24/2020 CBC NRBC% 0.0 % 0.0-0. 2 Not Available [address], [address], 03/24/2020 14:53:37 03/24/20 20 03/24/2020 CBC NRBC# 0.000 0.000- 0.012 Not Available [address], [address], 03/24/2020 14:53:37 03/24/20 20 03/25/2020 BMP, serum or plasm a glucose 145 mg/dL 70-100 high LIPG= Speci men Marke dly Lipem ic. Chem Resul ts may be effec deanna. Not Available [address], [address], 03/25/2020 12:02:28 03/24/2003/25/2020 BMP, serum or plasm a BUN 10 mg/dL 7-18 Not Available [address], [address], 03/25/2020 12:02:28 03/24/2003/25/2020 BMP, serum or plasm a creatinine 0.8 mg/dL 0.8-1. 3 Not Available [address], [address], 03/25/2020 12:02:28 03/24/2003/25/2020 BMP, serum or plasm a B/C 12.5 ratio Not Available [address], [address], 03/25/2020 12:02:28 03/24/2003/25/2020 BMP, serum or plasm a GFR -non 80.6 mL/mi n Recom tanja d GFR by the Natariel nal Kidne y Found ation >60 mL/mi n/1.7 3m2 - Na l <60 mL/mi n/1.7 3m2 - Chron ic Kidne y Disea se <15 mL/mi n/1.7 3m2 - Kidne y Failu re Not Available [address], [address], 03/25/2020 12:02:28 03/24/20 20 03/25/2020 BMP, serum or plasm a GFR - if 92.7 mL/mi n For Afric an Ameri can patie nts: Resul ts Multi plied by 1.21 Not Available [address], [address], 03/25/2020 12:02:28 03/24/2003/25/2020 BMP, serum or plasm a sodium 144 mmol/ L 136-14 5 Not Available [address], [address], 03/25/2020 12:02:28 03/24/2003/25/2020 BMP, serum or plasm a potassium 3.7 mmol/ L 3.5-5. 1 Not Available [address], [address], 03/25/2020 12:02:28 03/24/2003/25/2020 BMP, serum or plasm a chloride 107 mmol/ L 96-107 Not Available [address], [address], 03/25/2020 12:02:28 03/24/2003/25/2020 BMP, serum or plasm a anion gap 11.8 5.0-15 .0 Not Available [address], [address], 03/25/2020 12:02:28 03/24/2003/25/2020 BMP, serum or plasm a CO2 25 mmol/ L 21-32 Not Available [address], [address], 03/25/2020 12:02:28 03/24/2003/25/2020 BMP, serum or plasm a calcium 8.9 mg/dL 8.5-10 .3 Not Available [address], [address], 03/25/2020 12:02:28 03/24/2003/25/2020 TSH, serum or plasm a TSH 0.82 uIU/m L 0.50-6 .00 The Ameri can Colle ge of Endoc rinol ogy and Ameri can Thyro id Assoc iatio n recom mend goal TSH value s betwe en 0.4-4 .0 mIU/m L. Not Available [address], [address], 03/25/2020 12:20:01 03/24/2003/25/2020 vitam in D, 25-hy [...] er than 30 ng/mL . Not Available [address], [address], 03/25/2020 12:20:02 03/24/20 20 03/25/2020 AST/S GOT (aspa rtate amino trans feras e), serum or plasm a AST 25 U/L 0-37 LIPG= Speci men Marke dly Lipem ic. Chem Resul ts may be effec deanna. Not Available [address], [address], 03/25/2020 12:46:25 03/24/2003/25/2020 ALT (sara ine amino trans feras e), serum or plasm a ALT 49 U/L 6-63 Not Available [address], [address], 03/25/2020 12:46:26 03/24/20 20 03/25/2020 MAURICIO (anti [...] Patte rns (http s://d oi.or g/10. 1515/ [facility]- 2017- 0052) For addit ional infor li yanes e refer to http: //[facility] adalberto santamaria.Que stDia gnost ics.c om/fa q/FAQ 177 (This link is being provi ded for infor matio nal/ educa maira l purpo ses only. ) Not Available [facility] [address] [place] [address], [place], [address], 03/25/2020 15:32:58 03/24/20 20 03/25/2020 HbA1c (hemo globi n A1c), blood hemoglobin A1C 5.9 % 4.8-6. 0 Goal: <7% in Patie nts with Diabe barbie Not Available [address], [address], 03/25/2020 15:42:28 03/24/20 20 03/25/2020 HbA1c (hemo globi n A1c), blood estimated average glucose 122.6 mg/dL Not Available [address], [address], 03/25/2020 15:42:28 Result Notes None recorded. Problems Name Problem SNOMED Code Status Onset Date Resolution Date Notes Provider Name and Address Organization Details Recorded Time Hypothyro idism 77105976 [place], [address], [facility] 6 10:34:37 Psoriasis 2041073 [place], [address], [facility] 6 17:39:38 Osteoarth ritis 309983325 [place], [address], [facility] 6 17:21:01 Complicat ion of medical care 09923661 Completed 200708/14/2013 MD [place], [address], [facility] 6 17:21:01 Vitamin D deficienc y 16108529 Active 2015 Darling Rocha MD [address] [place], [place] [address], [address], [facility] 6 12:18:54 Cobalamin deficienc y 549151527 Active 2015 MD [place], [address], [facility] 6 12:19:24 Ophthalmi c migraine 72450345 Active 2017 Darling Rocha MD [address] [place], [place] [address], [address], [facility] 8 12:49:07 Obesity 996213037 Active 2017 Darling Rocha MD [address] [place], [place] [address], [address], [facility] 8 10:43:25 Adenomato us polyp of colon 610342832 Active 2018 Darling [facility]ocha MD [address] [facility] [place], [address], [facility] 9 12:38:22 Cyst of kidney 609237653 Active 2019 repeat US 11/2020 to assure no changes Darling Rocha MD [address] [facility] [place], [address], [facility] 0 08:56:05 Problem Notes None recorded. Procedures Surgical History Date Name Laterality Status Provider Name and Address Organization Details Recorded Time 05/08/20 20 Cerumen Removal - Irrigation/Lava ge completed Agatha Boles NP [address] [place], [address], [facility] 05/08/2020 13:33:51 10/10/19 20 Cerumen Removal - Irrigation/Lava ge completed Nori Meadows RN [facility] 10/10/2019 14:57:52 05/04/20 19 POC Urinalysis Testing completed Bette Pardo MA [facility] 05/04/2019 11:23:15 11/21/19 19 POC Urinalysis Testing completed Swati Patricia MA [facility] 11/21/2018 11:38:48 08/28/20 18 Cerumen Removal - Irrigation/Lava ge completed Rita Ramos [facility] 08/28/2018 11:46:20 03/16/20 18 Cerumen Removal - Irrigation/Lava ge completed Yadira Finley MD [address] [place], [address], [facility] 03/16/2018 15:02:34 01/06/20 18 [address]: Therapeutic Exercise completed Deirdre Trujillo, PT [address] [place], [address], [facility] 01/05/2018 13:09:35 01/06/20 18 [address]: Manual Therapy completed Deirdre Trujillo, PT [address] [place], [address], [facility] 01/05/2018 13:09:38 01/06/20 18 Treatment and Advice completed Deirdre Trujillo, PT [address] [place], [address], [facility] 01/05/2018 12:41:49 12/27/19 18 [address]: Therapeutic Exercise completed Deirdre Trujillo, PT [address] [place], [address], [facility] 12/26/2017 13:30:27 12/27/19 18 Treatment and Advice completed Deirdre Trujillo, PT [address] [place], [address], [facility] 12/26/2017 13:27:24 12/20/19 18 [address]: Therapeutic Exercise completed Deirdre Trujillo, PT [address] [place], [address], [facility] 12/19/2017 15:39:43 12/20/19 18 Treatment and Advice completed Deirdre Trujillo, PT [address] [place], [address], [facility] 12/19/2017 14:56:59 12/13/19 18 Physical Activity Counselling completed Deirdre Trujillo, PT [address] [place], [address], [facility] 12/12/2017 15:27:42 12/13/19 18 [address]: PT Eval, Moderate Complexity completed Deirdre Trujillo, PT [address] [place], [address], [facility] 12/12/2017 15:27:38 12/13/19 18 Treatment and Advice completed Deirdre Trujillo, PT [address] [place], [address], [facility] 12/12/2017 14:31:02 09/23/20 16 Cerumen Removal - Irrigation/Lava ge completed Isabella Pulido LPN [facility] 09/23/2016 11:49:35 02/02/20 16 POC Urinalysis Testing completed Jory Vallecillo LPN [facility] 02/02/2016 16:08:03 Imaging Results None recorded. Procedure Notes None recorded. Medical Equipment None Reported. Allergies Allergen ID Allergen Name Allergen Category Reaction Reaction Severity Criticality Documentation Date Start Date Code Code System Note Provider Name and Address Organization Details Recorded Time 985036 meloxicam medicatio n Not available Not available Not available 04/09/2015 15969 RxNorm Arnoldo ashley wade Milagro Chris, TOMAS [address] [facility], [place] [place], [address] , [facility] 5 12:03:16 188330 epinephri ne medicatio n Not available Not available Not available 07/22/2015 3992 RxNorm pt has had & has been o.k. but had & got jitte ry & rash the next day. Patricia Awad [facility] 6 11:50:09 062565 Chantix medicatio n Not available Not available Not available 07/22/2015 [address] Juan F Nevarez [facility] 5 12:17:50 459274 doxycycli ne Not available nausea Not available Not available 09/19/2018 3640 RxNorm Christie Moser [facility] 8 15:44:39 Medications Name Sig [...] Not Available Not Available No t Available [place] Thyroid 15 mg tablet TAKE 4 TABLETS [...] Updated DateTime 02/18/2020 162.56 cm 32.6 kg/m2 58872.55 g Darling Rocha MD [address] [place] [address], [address], [facility] 02/18/2020 14:08:40 Date Recorded Body height Body mass index (BMI) Body weight Body temperature Heart rate Systolic And Diastolic Provider Name and Address Organization Details Last Updated DateTime 0 162.56 cm 33.7 kg/m2 30344.5 g 97.8 [degF] 68 /min 136/84 mm[Hg] Juan F Nevarez MA [facility] 0 12:21:28 Social History Question Answer Notes LastModified by Organizat ion Details LastModified Time Tobacco Smoking Status Former Smoker quit 8yrs ago-04/09/15, smoked for 30 yrs, smoked 1-2 PPD RODRIGO Singer, [facility] 04/09/2015 11:51:45 Do You Wear A Helmet When Biking? [...] You Used? None Information not available 10/23/2015 Education 2 Year College Information not available 10/23/2015 When Did You Quit Smoking? 6-10yearssi ncelastciga rette [email or web address] Information not available 10/23/2015 How Many Days [...] In Home Yes Information not available 04/09/2015 What Types Of Sporting Activities Do You Participate In? None Information not available 04/09/2015 General Stress Level Medium Information not available 02/12/2019 Do You Use Sunscreen Routinely? Yes Information not available 04/09/2015 Sex: Unknown Functional Status Question Answer Note LastModified by Organization Details LastModified Time What is your level of alcohol consumption? Occasional 2-drinks a week Information not available 04/09/2015 Do you or have you ever used smokeless tobacco? 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 Never used electronic cigarettes Information not available 10/10/2019 Mental Status None recorded. Family History Relationship Description Onset Age of this Age Resolved Age Notes LastModified by Organization Details LastModified Time Father Psoriasis [email or web address] Not availabl e 01/15/2016 17:26:12 Father Accidental physical contact 51 [email or web address] Not available 2015 17:26:12 Mother Malignant neoplasm of lung 49 mets to liver, smoker [...] virus, quadrivalent, PF 8 completed Not Available [facility] 10/12/2019 02:34:17 Tdap 2 completed [facility] 05/12/2015 08:52:35 influenza, unspecified formulation 3 completed Juan F Nevarez MA [facility] 07/22/2015 12:16:56 Td(adult) unspecified formulation 7 completed Juan F Nevarez MA [facility] 07/22/2015 12:16:56 Influenza, split virus, quadrivalent, preservative 6 completed FERNANDO Kebede [facility] 07/15/2016 17:00:35 Influenza, split virus, quadrivalent, PF 9 completed Not Available [facility] 10/12/2019 02:29:22 pneumococcal polysaccharide PPV23 0 completed Not Available [facility] 10/12/2019 02:40:15 influenza, unspecified formulation 8 completed Christie Moser [facility] 09/19/2018 15:50:42 Td (adult), 2 Lf tetanus toxoid, preservative free, adsorbed 0 completed Nori Meadows RN [facility] 05/08/2020 15:36:28 Influenza, high-dose, quadrivalent, PF 0 completed OC MontillaRMSpenser [facility] 07/11/2020 11:24:54 Past Encounters Encounter ID Performer Location Encounter Start Date Encounter Closed Date Diagnosis/Indication Diagnosis SNOMED-CT Code Diagnosis ICD10 Code Diagnosis Note [id number] [address] [address] 02/12/2008 15:45:42 10/15/2008 02:02:[id number] [address] 04/28/2008 15:25:26 10/15/2008 02:02:29 [id number] Milagro Chris NP , [facility], [address] [place] [address] 04/09/2015 11:31:06 04/09/2015 12:32:46 Psoriasis 4621212 New pt establishi ng with the practice. [...] her dose if she is ill. Hypothyroidism 62105078 [id number] Amaury Robbins MD FP, [facility], [address] [place] [address] 05/01/2015 16:23:27 05/01/2015 17:21:30 Psoriasis 7047419 Cutaneous psoriasis, previously followed by Dermatolog y [...] MTX reviewed. Check CBC and CMP. Hypothyroidism 75214296 Was told TSH was normal in December-January 2015 during her physical. Denies any previous intoleranc e to Levothyrox ine. Records requested. [id number] Darling Rocha MD , [facility], [address] [place] [address] 10/23/2015 11:30:25 10/23/2015 12:32:36 Adult health examination 737994803 Z00.00 see Risk Assessment and Lifestyle Change Counseling section above Hypothyroidism 08454755 E03.9 TSh today has been stable Psoriasis 4516568 L40.9 methotrexa te with Derm improving Counseling 720046962 Z71 .9 see HPI Obesity 406209473 E66.9 pt with active weight loss plan three serge follow up to assess and monitor could consider nutrition referral at that time if needed glucose has been high, mildly, on CMP screening at derm; will get A1C also lipid panel Osteoarthritis 785742875 M19.90 [facility], uses 1/2 dose Screening for malignant neoplasm of cervix 047609314 Z12.4 [id number] Phil Cruz MD , [facility], [address] [place] [address] 12/04/2015 14:43:15 12/04/2015 15:35:49 Acute upper respiratory infection 65450372 J06.9 [id number] Darling Rocha MD , [facility], [address] [place] [address] 01/15/2016 16:57:34 01/15/2016 17:36:05 Hypothyroidism 10618956 E03.9 TSH in range wants to try to levothyrox ine instead of [place] will convert dosing has been stable Psoriasis 9906975 L40.9 methotrexa te with Derm improving needs labs Obesity 361742220 E66.9 pt with active weight loss plan three serge follow up to assess and monitor could consider nutrition referral at that time if needed glucose has been high, mildly, on CMP screening at derm; will get A1C also lipid panel Injury of knee 100052180 S80.921A recurrent right knee injury going to ortho Monday, known to them [id number] LAWRENCE Henning , [facility], [address] [place] [address] 02/02/2016 15:28:37 02/02/2016 16:26:30 Screening for disorder 241641835 Z11.59 Urinary tr act infectious disease 49959912 N39.0 No sign of infection on urine dipstick. Push fluids f/u if no improvemen t in 72 hours or for fever or back pain. [id number] Amaury Robbins MD , [facility], [address] [place] [address] 05/19/2016 08:38:33 05/19/2016 09:25:42 Screening for malignant neoplasm of respiratory tract 274963547 Z12.2 Pt wishes to have low dose CT scan screening for lung cancer as she has > 30 pack years of smoking. Understand s she will be exposed to radiation, but at lower doses. Myofascial pain 16057732 9 M79.1 After spending almost 30 minutes discussing her respirator y issues and shingles vaccine, pt discussed the real reason she was here was intermitte nt unrelentin g myofacial pain and spasm in different muscle groups. Denies new meds or changes. Will check labs. Dyspnea 984381193 R06.00 Mild in mornings since spring on days with humid weather. Will check spirometry with nursing staff on another day to r/o copd as pt with > 40 year pack history [id number] Janki Scruggs, MARKETING COMPLIANCE MANAGER-FELECIA , [facility], [address] [place] [address] 05/28/2016 10:03:05 05/28/2016 14:31:40 Spasm of back muscles 273023383 M62.830 left scapular spasm, in setting of intermitte nt peripheral spasm, with no associated weakness, treat shoulder pain as written below, no concern for overuse or abuse of meds,coord inate with rheum re systemic symtpoms. Psoriasis 7214890 L40.9 managed by rheum in [facility] [id number] Amaury Robbins MD , [facility], [address] [place] [address] 06/29/2016 09:33:46 06/29/2016 10:25:37 Active or passive immunization 745981724 Z23 Pt going to wait because she is on methotrexa te and will check with Derm first Spasm 83942884 R25.2 Pt with severe muscle spasm and pain, worse in arms and legs. Feels very washed out. Fingers clench. Generalize d osteoarthritis 670899728 M15.9 Multiple joint pain. Also has psoriasis and is on methotrexa te. Having alot of joint pain and muscle pain [id number] Yuriy Reece MD Rheumatol [facility], [facility] [address] [facility] [place] [address] 07/01/2016 08:52:26 07/04/2016 07:34:12 Spasm 61676334 R25.2 Chief complaint is prominent muscular spasms. [...] at low dose. Osteoarthr itis of knee 166270327 M17.0 Symptomati c. Gets steroid injections (Dr Mendieta). Osteoarthritis 953481456 M19.90 Degenerati ve arthritis of both knees, but also osteoarthr itic changes at several locations. Other than the knees, none of this is particular ly symptomati c at present. Psoriasis 5116604 L40.9 Followed by dermatolog y. On low-dose methotrexa te. No sign of psoriatic arthritis. Psoriasis, well controlled [id number] Darling Rocha MD FP, [facility], [address] [place] [address] 07/15/2016 16:48:21 07/15/2016 17:30:01 Osteoarthritis 304374400 M19.90 followed [facility] PRN, uses 1/2 dose Hypothyroidism 08059270 E03.9 TSH was in rangeconti nue samedoesn' t seem a factor in her pain Psoriasis 5802119 L40.9 methotrexa te with Derm improvings eeing them in coming monthsmedi cation makes her very tired Spasm 85582963 R25.2 unclear etiologydo es get some relief [...] her workshe will consider miko chi in [facility] ndiscussed anti-infla mmatory diet Neuralgia 08164798 M79.2 mostly UEpt concerned carpel tunnel, has upper arm twinges as well, mostly at night, sides rotateno focal sxawaiting neurology evaluation , apt in September, on waiting listdoesn' t want new medication very stressed, aware of stress componenen tsupportiv e reassuranc e today Depressive disorder 3380 5450 F32.9 pt presents with sx of major depression related to physical healthdisc ussion today tx may help overall healthwant s therapydoe sn't want medication offered referrals to therapy here or acute visit with Dr Rios will talk with her friend who is a therapist to get an idea of who to seeno SI or self harm [id number] MD SHMUEL Turner, [facility], [address] [place] [address] 08/05/2016 15:17:27 08/05/2016 16:07:40 Hypothyroidism 76358561 E03.9 stable Osteoarthritis 803919226 M19.90 ongoing pain, saw Dr Mendieta, disenheart ened with visitother pain issues precluding considerat ion of TKR nowgot BL joint injections focussed on other pains Spasm 90526797 R25.2 ongoing, some relief, feels achy all the timesaw rheumuncle ar if could be fibromyalg ia at this point with ongoing vague and traveling constant achesI wonder if depression contributi ng Neuralgia 45075466 M79.2 neurology 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 cloth neutralizer night time tricyclic or gabapentin at next visit Major depr essive disorder 791879341 F32.9 start tx todayenc therapy but so many obstaclesp t with very poor outlook, focusses on obstaclesd iscussed leave from work or ST disability given the correltati on with her sxclose f/u one monthdiscu ssed SE of [place] [id number] Darling Rocha MD , [facility], [address] [place] [address] 09/23/2016 10:49:51 09/23/2016 11:48:30 Hypothyroidism 39286303 E03.9 stable Spasm 86023284 R25.2 resolved with stopping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
--- OUTSIDE RECORDS SUMMARY | 2025-04-22 14:59 | XMS_ITS | Encounter Summary ---
Author Organization 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 Alcohol Use Standard Drinks/Week Comments Yes 0 (1 standard drink = 0.6 oz pure alcohol) I may have a maximum of 20 drinks a year, often 0 for mos. Education Answer Date Recorded Are you interested in more education? Not on jessee e 01/20/2023 Are you concerned about learning? Not on file 01/20/2023 No 01/20/2023 No 01/20/2023 Digital Access Answer Date Recorded No 02/20/2023 No 02/20/2023 Reliable internet access at home? Not on file 02/20/2023 Device with a working camera? Not on file Intimate Partner Violence Answer Date R ecorded Are you denied basic needs s uch as food, clothing, or medical care? No 06/04/2024 In the past 12 months have y ou been in a relationship with a person who hurts, threatens, or tries to control you? No 06/04/2024 Are you denied basic needs s uch as food, clothing, or medical care? No 06/04/2024 In the past 12 months have y ou been in a relationship with a person who hurts, threatens, or tries to control you? No 06/04/2024 Comments No Sex and Gender Information Value Date Recorded Sex Assigned at Female 04/29/2021 11:06 AM EDT Legal Sex Female 9:56 PM EDT Gender Identity Female 04/29/2021 11:06 AM EDT Sexual Orientation Straight 04/29/2021 11 :06 AM EDT documented as of this encounter Plan of Treatment Not on file documented as of this encounter Visit Diagnoses Not on filedocumented in this encounter Additional Health Concerns Infection Onset Date Last Indicated Resolved Time CoV-Risk 11/02/2024 11/12/2024 11/23/2024 1:24 AM EST Influenza A 11/02/2024 11/02/2024 11/09/2024 1:22 AM EST CDiff-Risk 11/04/2024 11/04/2024 11/04/2024 5:18 PM EST C. diff 11/04/2024 11/04/2024 12/04/2024 1:21 AM EDT CDiff-Risk 11/04/2024 11/04/2024 11/04/2024 7:04 PM EST CDiff-Risk 02/18/2025 02/18/2025 02/18/2025 6:51 PM EDT C. diff 02/18/2025 03/14/2025 04/13/2025 1:21 AM EDT documented as of this encounter Care Teams Gaming Dealer Relationship Specialty Start Date End Date Meredith Hager MD [address] [place] [address] [email or web address] PCP - General Family Medicine 07/21/21 Milagro Cristobal PA-C [address] [place] [address] [email or web address] Physician Education Specialist Hematology 03/30/21 documented as of this encounter Additional Source Comments The information contained in this document represents components of the legal health record. It is not the complete legal health record.[facility]
--- OUTSIDE RECORDS SUMMARY | 2025-04-22 14:59 | XMS_ITS ---
Author Name [facility] Organization Unknown Encounters Encounter Type Encounter Reason Primary Diagnosis Location Date Ambulatory [facility] 10/28/2023 Ambulatory [facility] 02/23/2023 Ambulatory [facility] 02/06/2023
== END 2025-04-22 15:01 | disposition home or self-care (01) ==
LOC: HO.HOS 14:18
PROVIDERS: Visit Provider Orthopaedic Surgery
DX: M25.561 Pain in right knee (principal); M25.562 Pain in left knee
CPT/HCPCS: 99213; G2211

== ENCOUNTER → 2025-04-22 14:19 | Outpatient (BNV) | payer MEDICARE, SELFPAY | PROVIDERS: Visit Provider Radiology Diagnostic Radiology | DX: Z96.653 Presence of artificial knee joint, bilateral (principal) | CPT/HCPCS: 73562 ==

== ENCOUNTER 2025-04-22 14:22 | Outpatient (REF) | payer MEDICARE, SELFPAY ==
--- NOTE | ~2025-04-22 | XR_ITS ---
EXAMINATION: XR KNEE, RIGHT CLINICAL INFORMATION: M25.561 - Pain in right knee COMPARISON: May 30, 2023 TECHNIQUE: Three views of the right knee. FINDINGS: There has been revision of the femoral component since the prior examination. There is anatomic alignment. There are no other changes. XR/XR knee RT 3V IMPRESSION: Unremarkable right knee arthroplasty Electronically signed by: Arnoldo Delgado MD 04/22/2025 02:35 PM EDT
--- NOTE | ~2025-04-22 | XR_ITS ---
EXAMINATION: XR KNEE, LEFT CLINICAL INFORMATION: M25.562 - Pain in left knee COMPARISON: October 30, 2024 TECHNIQUE: Three views of the left knee. FINDINGS: Skin annabelle have been removed from the anterior knee and distal thighh. Prosthetic components of the total knee arthroplasty are appropriately aligned without periprosthetic fracture or abnormal lucency. No component migration. No joint effusion. XR/XR knee LT 3V IMPRESSION: Unremarkable total knee arthroplasty, left knee. Electronically signed by: Arnoldo Delgado MD 04/22/2025 02:36 PM EDT
== END 2025-04-22 14:23 | disposition home or self-care (01) ==
LOC: HO.HOSX 14:22
PROVIDERS: Visit Provider Orthopaedic Surgery
DX: M25.561 Pain in right knee (principal); M25.562 Pain in left knee; Z79.899 Other long term (current) drug therapy; Z96.651 Presence of right artificial knee joint
CPT/HCPCS: 73562; 99212